=== PATIENT | male | born 1990 | race Caucasian/White ===

== ENCOUNTER 2018-09-20 21:45 | Emergency (ER) | payer SELFPAY ==
[2018-09-20 21:46] VITALS: BP 153/73; PULSE 82; RESP 16; TEMP 36.5; O2SAT 97; BMI 30.3
--- NOTE | 2018-09-20 22:05 | CT_ITS ---
STUDY: CT ABDOMEN AND PELVIS WITHOUT CONTRAST REASON FOR EXAM: Male, 27 years old. Right lower abdominal pain for 2 days. RADIATION DOSAGE (If Supplied By Facility): CTDIvol = ( 16.34 ) mGy, DLP = ( 951.50 ) mGycm TECHNIQUE: Transaxial images were obtained from the dome of the diaphragm to the symphysis pubis without oral contrast, and without intravenous contrast. Sagittal and coronal images were reconstructed. Individualized dose optimization techniques were used for this CT. COMPARISON: None. FINDINGS: The visualized lung bases are unremarkable. The visualized portions of the heart are within normal limits. Normal liver. The gallbladder is poorly distended but grossly unremarkable. There is no biliary ductal dilatation. Normal spleen. Normal pancreas. Normal bilateral adrenal glands. Normal right kidney. Normal left kidney. Normal bilateral ureters. Normal visualized stomach. Normal small intestine. Normal colon. There is non-visualization of the appendix. Normal abdominal aorta. Normal inferior vena cava. Normal retroperitoneum. Normal urinary bladder. Normal prostate. The seminal vesicles are prominent. There is no pelvic lymphadenopathy. No free air or free fluid is seen within the peritoneal cavity. There is an umbilical hernia of omental fat. The abdominal wall is grossly unremarkable. Normal osseous structures. CT/Abdomen/Pelvis without Cont IMPRESSION: Normal CT of the abdomen and pelvis. Electronically Signed: Sean Adorno DO at 22:36 EDT Tel [phone], Service support ,
[2018-09-20] MEDS: 0.9% Normal Saline 1,000 ML 125 ML IV (22:13)
[2018-09-20 22:21] LABS: Absolute Lymphocyte Count 2.45 X10^3/ul (0.83-4.51); Absolute Neutrophil Count 4.4 X10^3/uL (2.0-7.7); Basophil# 0.04 X10^3/uL; Basophil% 0.5 % (0-1); Eosinophil# 0.12 X10^3/uL; Eosinophils% 1.6 % (0-5); Hematocrit 44.1 % (40-54); Hemoglobin 15.8 g/dl (13.0-16.5); Lymphocyte # 2.45 X10^3/ul (4.0); Lymphocyte % 32.6 % (19-41); Mean Corp Hgb Conc 35.8 g/gl (32-36); Mean Corpuscular Hgb 30.9 pg (27.0-32.0); Mean Corpuscular Volume 86.1 fL (80-94); Mean Platelet Vol. 9.1 fl (6.2-12.0); Monocyte# 0.52 X10^3/uL; Monocyte% 6.9 % (0-10); Neutrophil # 4.36 X10^3/uL (2.7-7.7); Neutrophil % 58.1 % (47-70); POSITIVE COUNT NO; POSITIVE DIFFERENTIAL NO; POSITIVE MORPHOLOGY NO; Platelet Count 310 K/mm3 (150-450); RBC Distribution Width SD 40.2 fl (35.1-43.9); Red Blood Count 5.12 M/mm3 (4.6-6.2); White Blood Count 7.5 K/mm3 (4.4-11.0)
[2018-09-20 22:35] LABS: Anion Gap 7 (5-15); BUN 15 mg/dL (7-18); BUN/Creat Ratio 14.3 RATIO (10-20); Chloride 105 mmol/L (98-107); Creatinine, Serum 1.05 mg/dL (0.70-1.30); EST Glomerular Filtration Rate 89 mL/min (>60); Est Glom Filt Rate - Afr Amer 108 mL/min (>60); Estimated Creatinine Clearance 118.37 ml/min; Glucose 97 mg/dL (74-106); Potassium 3.7 mmol/L (3.5-5.1); Sodium Level 139 mmol/L (136-145)
--- NOTE | 2018-09-20 22:51 | ED.VISSUMM ---
- ER Visit Summary Date of Service: 09/20/18 Chief Complaint: Abdominal pain History of Present Illness: The patient is a 27 M presenting for evaluation secondary to abdominal pain. Patient reports that over the course the last 2 days he has had abdominal pain. He reports that it initially started periumbilically and then moved to his right lower quadrant. Patient states it is a continuous sharp aching pain that is somewhat better with putting pressure over the area but is worse with walking. Occasionally gets some radiation to his groin. He has not had any sort of fever nausea vomiting or diarrhea associated with this. He does endorse that he has a decreased appetite. Patient states that he has been dealing with urinary frequency over the course of multiple months and has had an extensive workup for this that has found to be negative. Patient states that yesterday he felt somewhat bloated but that is because he went on somewhat of a drinking binge for a peña's birthday. Physical Examination: Vital signs are within normal limits, patient is afebrile. General: Patient is well-nourished well-developed and in no acute distress. Head: Normocephalic, atraumatic Eyes: Pupils equal round and reactive bilaterally, extra occular motion intact bialterally ENT: Moist mucous membranes Neck: Supple, no lymphadenopathy, no JVD, no meningismus CVS: Heart regular rate and rhythm, no murmurs, rubs or gallops, radial pulses 2+ bilaterally Resp: Respirations nondistressed, lung sounds clear bilaterally Abdomen: Soft, tenderness in the right lower quadrant with a positive Rovsing sign, no guarding or rebound, nondistended, no palpable masses, normal bowel sounds Back: Nontender Extremities: Nontender, atraumatic, active full range of motion, no peripheral edema Skin: warm, no rashes, no petechia Neuro: Alert and oriented x 4, CN 2-12 intact, no lateralizing neurological defecits Psyc: Normal affect Test Results: CT abdomen and pelvis normal. CBC and chemistry are negative Emergency Department Course and Treatment: Patient presented for evaluation secondary to abdominal pain. This was concerning for the possibility of appendicitis. Workup as noted above is negative. Patient's abdominal exam is nonsurgical he has normal vital signs do not believe that he requires further workup or observation. Patient was given signs and symptoms which to return, he was discharged in stable condition Disposition: Discharge Impression: Right lower quadrant abdominal pain This note was generated with Flowboard dictation software. It may contain incorrect words, spelling, and punctuation that were not noted in review of the chart prior to signing ED Disposition - Plan for ED Patient: Disposition: Home or Assisted Living Chief Complaint: Flank Pain Diagnosis: Right lower quadrant abdominal pain Instructions: ED Abdominal Pain Unkn Cause Referrals: Johnny Hood [Primary Care Provider] - As Needed
[2018-09-20 23:18] VITALS: BP 133/79; PULSE 74; RESP 16; O2SAT 97
== END 2018-09-20 23:19 | disposition home or self-care (01) ==
PROVIDERS: Emergency Provider Emergency Medicine; Family Provider Family Medicine; PCP Family Medicine
DX: R10.31 Right lower quadrant pain (principal)
CPT/HCPCS: 74176; 80048; 85025; 96360; 99283; J7030; A4216

== ENCOUNTER 2018-10-05 09:23 | Day surgery (SDC) | payer SELFPAY ==
[2018-10-05] VITALS (8 sets, daily range): BP systolic 111–142; BP diastolic 76–106; PULSE 75–86; RESP 16–18; TEMP 36.2–36.8; O2SAT 95–100; BMI 30.6
--- NOTE | 2018-10-05 | IMM_PTH ---
PATIENT: GREGORY YING LOC: [facility] U#:[id number] AGE/SX: 27/M ROOM: RE10/05/[address]: Dr. Luciano Jones MD : 1990 BED: DIS: 10/05/2018 SPEC #: [id number] RECD: 10/07/18 07:58 STATUS: OLIVE REDeclan #: [id number] AZUCENA: 10/05/18 00:[address]: Luciano Jones DEPT: IMMUNOHISTOCHEMISTRY RECD BY: Messi Jones ENTERED: 10/07/18 07:58 SP TYPE: IMMUNO OTHR DR: Dr. Johnny Hood MD Tissues: Gastric mucous membrane Procedures: H Pylori (initial) PHYSICIAN & INSTITUTION [place] [id number] SPECIMEN INFORMATION: Tissue Source: B. Antral biopsy Clinical Info: Generalized abdominal pain, diarrhea Specimen Number: [id number] CPT code: 74853 METHODOLOGY: Deparaffinized sections of prefer/formalin-fixed tissue or PAP/DQ stained slides are incubated with monoclonal/polyclonal antibodies/oligonucleotide probes. Localization is made via biotin free immunoperoxidase method. Appropriate controls are performed and reacted as expected. Results on target cell population are indicated in the following table: RESULTS: ANTIBODY / CLONE RESULT H Pylori (polyclonal) negative These tests were developed and their performance characteristics determined by [facility]. They may not have been cleared or approved by the U.S. Food and Drug Administration. The FDA has determined that such clearance or approval is not necessary. INTERPRETATION: Antral biopsy: Negative for Helicobacter pylori organisms. SJ:brianne 10/06/18
--- NOTE | 2018-10-05 | COLBX_PTH ---
PATIENT: GREGORY YING LOC: [facility] U#:[id number] AGE/SX: 27/M ROOM: RE10/05/[address]: Dr. Luciano Jones MD : 1990 BED: DIS: 10/05/2018 SPEC #: [id number] RECD: 10/05/18 14:54 STATUS: OLIVE ESCOTODeclan #: [id number] AZUCENA: 10/05/18 00:[address]: Luciano Jones DEPT: SURGICAL PATHOLOGY RECD BY: Darryl Osman ENTERED: 10/05/18 14:55 SP TYPE: COLON BX OTHR DR: Dr. Johnny Hood MD Tissues: A - Duodenum, NOS B - Gastric mucous membrane C - Esophageal mucous membrane D - Esophageal mucous membrane E - COLON BIOPSY Procedures: Surgery Specimen Level IV HEADER OPERATION: Colonoscopy, EGD (MOD) PRE-OP DIAGNOSIS: Generalized abdominal pain, diarrhea TISSUE SUBMITTED: A. Duodenal biopsy, B. Antral biopsy, C. Distal esophagus biopsy, D. Proximal esophagus biopsy, E. Random colonic biopsy MICROSCOPIC DIAGNOSIS A. Duodenal biopsy: Fragments of duodenal mucosa with mild nonspecific chronic inflammation. B. Antral biopsy: Mild gastritis. C. Distal esophagus, biopsy: Fragments of squamous mucosa with mild chronic inflammation and superficial mild acute inflammation. D. Proximal esophagus, biopsy: Fragment of squamous epithelium with congestion. E. Colon, random biopsy: Fragments of colonic mucosa, no pathologic diagnosis. LUNA:kelechi 10/06/18 COMMENT B. The results of immunohistochemistry for Helicobacter pylori will be reported separately ([id number]). MICROSCOPIC DESCRIPTION Slides are reviewed. B. The specimen shows fragments of gastric mucosa with chronic inflammatory cell infiltrates in the lamina propria consisting of lymphocytes and plasma cells, consistent with mild chronic gastritis. GROSS DESCRIPTION A. Received is one container labeled with the patient name and designated duodenal biopsy. The specimen consists of multiple irregular fragments of light lau soft tissue that in aggregate measure 0.6 x 0.3 x 0.1 cm. The specimen is totally submitted in one cassette. B. Received is one container labeled with the patient name and designated antral biopsy. The specimen consists of one irregular fragment of light lau soft tissue that measures 0.3 x 0.2 x 0.1 cm. The specimen is totally submitted in one cassette. C. Received is one container labeled with the patient name and designated distal esophagus. The specimen consists of multiple irregular fragments of light lau soft tissue that in aggregate measure 0.6 x 0.3 x 0.1 cm. The specimen is totally submitted in one cassette. D. Received is one container labeled with the patient name and designated proximal esophagus biopsy. The specimen consists of one irregular fragment of light lau soft tissue that measures 0.2 x 0.2 x 0.1 cm. The specimen is totally submitted in one cassette. E. Received is one container labeled with the patient name and designated random colon biopsy. The specimen consists of multiple irregular fragments of light lau soft tissue that in aggregate measure 1.3 x 0.6 x 0.1 cm. The specimen is totally submitted in one cassette. / AM:sp 10/05/18 TC: 3 CPT: 01947 x5
--- NOTE | 2018-10-05 11:12 | OP.ENDO_ITS ---
Patient Name: Pablito Jean Baptiste Procedure Date: 10/05/2018 10:32 AM Date of : 1990 Age: 27 Procedure: Upper GI endoscopy Indications: Epigastric abdominal pain Providers: Luciano Jones MD Referring MD: Luciano Jones MD Medicines: Midazolam 4.5 mg IV, Meperidine 150 mg IV Complications: No immediate complications. Procedure: Pre-Anesthesia Assessment: - Prior to the procedure, a History and Physical was performed, and patient medications and allergies were reviewed. The patient's tolerance of previous anesthesia was also reviewed. The risks and benefits of the procedure and the sedation options and risks were discussed with the patient. All questions were answered, and informed consent was obtained. Prior Anticoagulants: The patient has taken no previous anticoagulant or antiplatelet agents. ASA Grade Assessment: II - A patient with mild systemic disease. After reviewing the risks and benefits, the patient was deemed in satisfactory condition to undergo the procedure. After obtaining informed consent, the endoscope was passed under direct vision. Throughout the procedure, the patient's blood pressure, pulse, and oxygen saturations were monitored continuously. The gastroscope was introduced through the mouth, and advanced to the second part of duodenum. The upper GI endoscopy was accomplished without difficulty. The patient tolerated the procedure well. Moderate Sedation: Moderate (conscious) sedation was personally administered by the endoscopist. The following parameters were monitored: oxygen saturation, heart rate, blood pressure, and response to care. Total physician intraservice time was 15 minutes. Scope In: 10:40:40 AM Scope Out: 10:47:14 AM Total Procedure Duration Time 0 hours 6 minutes 34 seconds Findings: The Z-line was irregular and was found 42 cm from the incisors. Biopsies were taken with a cold forceps for histology. LA Grade A (one or more mucosal breaks less than 5 mm, not extending between tops of 2 mucosal folds) esophagitis with no bleeding was found 42 cm from the incisors. A small hiatal hernia was present. Diffuse mild mucosal changes characterized by sloughing were found in the upper third of the esophagus. Biopsies were taken with a cold forceps for histology. The entire examined stomach was normal. Biopsies were taken with a cold forceps for histology. The examined duodenum was normal. Biopsies were taken with a cold forceps for histology. Impression: - Z-line irregular, 42 cm from the incisors. Biopsied. - LA Grade A reflux esophagitis. - Small hiatal hernia. - Mucosal changes in the esophagus. Biopsied. - Normal stomach. Biopsied. - Normal examined duodenum. Biopsied. Recommendation: - Resume previous diet. - Continue present medications. - Telephone my office for pathology results in 1 week. Recommend 20-30 lb weight loss to help with management of GERD - Repeat upper endoscopy for surveillance based on pathology results. Procedure Code(s): --- Professional --- 49275, Esophagogastroduodenoscopy, flexible, transoral; with biopsy, single or multiple 68563, 59, Moderate sedation services provided by the same physician or other qualified health wound care nurse performing the diagnostic or therapeutic service that the sedation supports, requiring the presence of an independent trained observer to assist in the monitoring of the patient's level of consciousness and physiological status; initial 15 minutes of intraservice time, patient age 5 years or older Diagnosis Code(s): --- Professional --- K22.8, Other specified diseases of esophagus K21.0, Gastro-esophageal reflux disease with esophagitis K44.9, Diaphragmatic hernia without obstruction or gangrene R10.13, Epigastric pain CPT copyright 2017 [employer]. All rights reserved. The codes documented in this report are preliminary and upon garbage truck dispatcher review may be revised to meet current compliance requirements. Luciano Jones MD 10/05/2018 11:12:33 AM This report has been signed electronically. Number of Addenda: 0 Note Initiated On: 10/05/2018 10:32 AM
--- NOTE | 2018-10-05 11:16 | OP.ENDO_ITS ---
Patient Name: Pablito Jean Baptiste Procedure Date: 10/05/2018 10:49 AM Date of : 1990 Age: 27 Procedure: Colonoscopy Indications: Clinically significant diarrhea of unexplained origin Providers: Luciano Jones MD Referring MD: Luciano Jones MD Medicines: See the other procedure note for documentation of the administered medications Patient Profile: Last Colonoscopy: none. The patient's first colonoscopy is today. Complications: No immediate complications. Procedure: Pre-Anesthesia Assessment: - Prior to the procedure, a History and Physical was performed, and patient medications and allergies were reviewed. The patient's tolerance of previous anesthesia was also reviewed. The risks and benefits of the procedure and the sedation options and risks were discussed with the patient. All questions were answered, and informed consent was obtained. Prior Anticoagulants: The patient has taken no previous anticoagulant or antiplatelet agents. ASA Grade Assessment: II - A patient with mild systemic disease. After reviewing the risks and benefits, the patient was deemed in satisfactory condition to undergo the procedure. After I obtained informed consent, the scope was passed under direct vision. Throughout the procedure, the patient's blood pressure, pulse, and oxygen saturations were monitored continuously. The colonoscope was introduced through the anus and advanced to the cecum, identified by appendiceal orifice and ileocecal valve. The colonoscopy was performed without difficulty. The patient tolerated the procedure well. The quality of the bowel preparation was good. The ileocecal valve was photographed. Moderate Sedation: Moderate (conscious) sedation was personally administered by the endoscopist. The following parameters were monitored: oxygen saturation, heart rate, blood pressure, and response to care. Total physician intraservice time was 15 minutes. Scope In: 10:50:48 AM Scope Withdrawal Time 0 hours 7 minutes 53 seconds Scope Out: 11:04:29 AM Total Procedure Duration Time 0 hours 13 minutes 41 seconds Findings: The digital rectal exam findings include enlarged prostate. Pertinent negatives include normal sphincter tone. The colon (entire examined portion) appeared normal. Biopsies for histology were taken with a cold forceps from the entire colon for evaluation of microscopic colitis. Impression: - Enlarged prostate found on digital rectal exam. - The entire examined colon is normal. Biopsied. Recommendation: - Discharge patient to home. - Resume previous diet. - Telephone my office for pathology results in 1 week. - Repeat colonoscopy age 49. - Continue present medications. Luciano Jones MD 10/05/2018 11:16:36 AM This report has been signed electronically. Number of Addenda: 1 Note Initiated On: 10/05/2018 10:49 AM Addendum Number: 1 Addendum Date: 10/05/2018 12:02:13 PM No changes Luciano Jones MD 10/05/2018 12:04:27 PM
== END 2018-10-05 11:57 | disposition home or self-care (01) ==
LOC: EN 09:33 → AC 09:34
PROVIDERS: Family Provider Family Medicine; PCP Family Medicine; Referring Provider Surgery; Visit Provider Surgery
PROC: 0DJD8ZZ Inspection of Lower Intestinal Tract, Via Natural or Artificial Opening Endoscopic (ICD-10-PCS; CPT 45378; principal; 2018-10-05 10:25)
DX: K29.70 Gastritis, unspecified, without bleeding (principal); K21.0 Gastro-esophageal reflux disease with esophagitis; K44.9 Diaphragmatic hernia without obstruction or gangrene; N40.0 Benign prostatic hyperplasia without lower urinary tract symptoms; F41.9 Anxiety disorder, unspecified; F32.9 Major depressive disorder, single episode, unspecified; Z79.899 Other long term (current) drug therapy
CPT/HCPCS: 43239; 45380; 88305; 88342; 99152; 99153; J7120

== ENCOUNTER → 2024-04-12 | Outpatient (CLI) | payer OTHER, SELFPAY ==
[2024-04-12 12:24] LABS: Absolute Lymphocyte Count 1.37 X10^3/uL (0.83-4.51); Absolute Neutrophil Count 2.4 X10^3/uL (2.0-7.7); Basophil# 0.03 X10^3/uL; Basophil% 0.7 % (0-1); Eosinophil# 0.08 X10^3/uL; Eosinophils% 1.8 % (0-5); Hematocrit 49.4 % (40-54); Hemoglobin 16.7 g/dL (13.0-16.5); Lymphocyte # 1.37 X10^3/ul (0.83-4.51); Lymphocyte % 30.9 % (19-41); Mean Corp Hgb Conc 33.8 g/dL (32-36); Mean Corpuscular Hgb 29.3 pg (27.0-32.0); Mean Corpuscular Volume 86.7 fL (80-94); Mean Platelet Vol. 9.7 fl (6.2-12.0); Monocyte# 0.51 X10^3/uL; Monocyte% 11.5 % (0-10); NRBC Flagged by Analyzer 0 % (0-5); Neutrophil # 2.43 X10^3/uL (2.7-7.7); Neutrophil % 54.9 % (47-70); Platelet Count 275 K/mm3 (150-450); RBC Distribution Width SD 40.7 fl (35.1-43.9); White Blood Count 4.4 K/mm3 (4.4-11.0)
[2024-04-12 13:00] LABS: ALB/GLOB Ratio 1.1 RATIO (0.9-2.4); AST(SGOT) 31 U/L (15-37); Alanine Aminotransfer ALT/SGPT 67 U/L (16-61); Albumin, Serum 4.1 g/dL (3.2-5.0); Alkaline Phosphatase 80 U/L (45-117); Anion Gap 6 (5-15); BUN 16 mg/dL (7-18); BUN/Creat Ratio 17.2 RATIO (10-20); Calcium,Total 9.4 mg/dL (8.5-10.1); Chloride 105 mmol/L (98-107); Cholesterol 156 mg/dL (200); Creatinine, Serum 0.93 mg/dL (0.70-1.30); EST Glomerular Filtration Rate 99 mL/min (>60); Est Glom Filt Rate - Afr Amer 119 mL/min (>60); Globulin 3.8 g/dL (2.2-4.2); Glucose 88 mg/dL (74-106); High Density Lipoprotein 33 mg/dL; Potassium 4.3 mmol/L (3.5-5.1); Protein, Total 7.9 g/dL (6.4-8.2); Sodium Level 138 mmol/L (136-145); Thyroid Stim Hormone (TSH) 1.66 uIU/mL (0.358-3.74); Triglycerides 183 mg/dL; Very Low Density Lipoprotein 37 mg/dL (5-40)
[2024-04-12 13:50] LABS: Vitamin D,25 Hydroxy 30.6 ng/mL
[2024-04-13 15:08] LABS: Endomysial Antibody IgA Negative (Negative); Immunoglobulin A 223 mg/dL (90-386); t-Transglutaminase IgA <2 U/mL (0-3)
== END | disposition home or self-care (01) ==
LOC: BIMLAB 08:39
PROVIDERS: PCP Internal Medicine; Visit Provider Internal Medicine
DX: R10.9 Unspecified abdominal pain (principal); G89.29 Other chronic pain; Z13.6 Encounter for screening for cardiovascular disorders; F32.A Depression, unspecified; F41.9 Anxiety disorder, unspecified
CPT/HCPCS: 36415; 80053; 80061; 82306; 82784; 83516; 84443; 85025; 86255

== ENCOUNTER → 2025-02-25 | Outpatient (CLI) | payer OTHER, SELFPAY ==
[2025-02-25 09:18] LABS: Absolute Lymphocyte Count 1.82 X10^3/uL (0.83-4.51); Absolute Neutrophil Count 3.6 X10^3/uL (2.0-7.7); Basophil# 0.04 X10^3/uL; Basophil% 0.7 % (0-1); Eosinophils% 1.7 % (0-5); Hematocrit 47.8 % (40-54); Hemoglobin 16.8 g/dL (13.0-16.5); Lymphocyte # 1.82 X10^3/ul (0.83-4.51); Lymphocyte % 30.5 % (19-41); Mean Corp Hgb Conc 35.1 g/dL (32-36); Mean Corpuscular Hgb 29.9 pg (27.0-32.0); Mean Corpuscular Volume 85.2 fL (80-94); Mean Platelet Vol. 9.4 fl (6.2-12.0); Monocyte# 0.42 X10^3/uL; NRBC Flagged by Analyzer 0 % (0-5); Neutrophil # 3.57 X10^3/uL (2.7-7.7); Neutrophil % 59.8 % (47-70); Platelet Count 270 K/mm3 (150-450); RBC Distribution Width CV 12.8 % (11.6-14.6); RBC Distribution Width SD 39.3 fl (35.1-43.9); Red Blood Count 5.61 M/mm3 (4.6-6.2)
[2025-02-25 10:04] LABS: ALB/GLOB Ratio 1.9 RATIO (0.9-2.4); AST(SGOT) 28 U/L (<=37); Alanine Aminotransfer ALT/SGPT 47 U/L (<=46); Albumin, Serum 4.5 g/dL (3.5-5.0); Alkaline Phosphatase 75 U/L (40-129); Anion Gap 9 (5-15); BUN 12 mg/dL (4-19); BUN/Creat Ratio 12.4 RATIO (10-20); Calcium,Total 9.4 mg/dL (7.6-11.0); Carbon Dioxide 25.8 mmol/L (21.0-32.0); Chloride 103 mmol/L (98-108); Creatinine, Serum 0.95 mg/dL (0.70-1.20); EST Glomerular Filtration Rate 107 (>60); Globulin 2.4 g/dL (2.2-4.2); Glucose 99 mg/dL (70-99); Potassium 4.7 mmol/L (3.3-5.1); Protein, Total 6.9 g/dL (5.9-8.4); Sodium Level 138 mmol/L (133-145); Total Bilirubin 1.02 mg/dL (0.00-1.30); Vitamin D,25 Hydroxy 19.3 ng/mL (30-100)
[2025-03-02 11:08] LABS: Testosterone Free 16.6 pg/mL (8.7-25.1)
== END | disposition home or self-care (01) ==
LOC: LAB 08:23
PROVIDERS: PCP Internal Medicine; Referring Provider Internal Medicine; Visit Provider Internal Medicine
DX: N52.9 Male erectile dysfunction, unspecified (principal); F32.A Depression, unspecified; F41.9 Anxiety disorder, unspecified; R10.9 Unspecified abdominal pain; G89.29 Other chronic pain
CPT/HCPCS: 36415; 80053; 82306; 84402; 85025

== ENCOUNTER 2025-06-16 08:02 | Day surgery (SDC) | payer OTHER, SELFPAY ==
[2025-06-16] MEDS: Lidocaine Jelly 2% 20 ML Syringe (URO-JET) 1 APPLIC (08:15)
[2025-06-16 08:54] VITALS: BP 119/75; PULSE 77; TEMP 36.1; O2SAT 99
== END 2025-06-16 08:42 | disposition home or self-care (01) ==
PROVIDERS: PCP Internal Medicine; Referring Provider Internal Medicine; Visit Provider Surgery
PROC: F00ZJWZ Instrumental Swallowing and Oral Function Assessment using Swallowing Equipment (ICD-10-PCS; CPT 43235; principal; 2025-06-16 07:55)
DX: K21.9 Gastro-esophageal reflux disease without esophagitis (principal)
CPT/HCPCS: 91010

== ENCOUNTER 2025-07-18 07:12 | Day surgery (SDC) | payer OTHER, SELFPAY ==
[2025-07-18] VITALS (8 sets, daily range): BP systolic 103–113; BP diastolic 65–79; PULSE 72–82; RESP 14–16; TEMP 36.1–36.4; O2SAT 97–100; BMI 28.2
--- OUTSIDE RECORDS SUMMARY | 2025-07-18 07:20 | XMS RPT_ITS | CCD ---
Author Organization [facility] CliniSypr Care Team Providers Care [employer] And Service Director Name Role Phone TAJKARIMIA, TOMASZ Admitting Unavailable TAJKARIMIA, TOMASZ Primary Care Unavailable TAJKARIMIA, TOMASZ Attending Unavailable OMAR HOOD Consulting Unavailable PROVIDER, UNKNOWN Consulting Unavailable PROVIDER, UNKNOWN Consulting Unavailable PROVIDER, UNKNOWN Consulting Unavailable OMAR HOOD Consulting Unavailable WILD, DR ERLINDA Santana Admitting Unavaila ble WILD, DR ERLINDA Santana Primary Care Unavaila ble WILD, DR ERLINDA Santana Attending Unavaila ble PROVIDER, UNKNOWN Consulting Unavailable PROVIDER, UNKNOWN Consulting Unavailable PROVIDER, UNKNOWN Consulting Unavailable Unavailable Primary Care Provider Unavailbreanna e Unavailable Primary Care Provider UnavailNAZANIN London Referring Unavailable NAZANIN AMIN Attending Unavailable OLDER, CLARISSA Referring Unavailable NAZANIN AMIN Attending Unavailable OLDER, CLARISSA Referring Unavailable OLDER, CLARISSA Attending Unavailable Dr. Mary Knowles MD Primary Care Provider [phone] Dr. Mary Knowles MD Attending Provider Dr. Mary Knowles MD Referring Provider Dr. Mary Knowles MD Primary Care Provider [phone] Dr. Mary Knowles MD Attending Provider Dr. Mary Knowles MD Referring Provider Catarina ASHTON, Dr. Palomo Attending Provider [phone] Mary Knowles Primary Care Unavailable Mary Knowles Referring Unavailable Mary Knowles Attending Unavailable Mary Knowles Referring Unavailable Mary Knowles Primary Care Unavailable Dewey Elmore Attending Unavailable Mary Knowles Primary Care Unavailable Dewey Elmore Attending Unavailable Mary Knowles Referring Unavailable [place], Mary Attending Unavailable Benson, Mary Primary Care Unavailable [place], Mary Primary Care Unavailable [place], Mary Referring Unavailable Benson, Mary Attending Unavailable [place], Mary Referring Unavailable Benson, Mary Primary Care Unavailable Dewey Elmore Attending Unavailable Benson, Mary Referring Unavailable [place], Mary Attending Unavailable Benson, Mary Primary Care Unavailable [place], Mary Referring Unavailable [place], Mary Attending Unavailable [place], Mary Primary Care Unavailable Medications Current Medications Medication Drug Class(es) Dates Sig (Normalized) Sig (Original) omeprazole 40 mg delayed release oral capsule (3 sources) Proton Pump Inhibitor Start: 04-26-2025 take 1 capsule by mouth once daily Omeprazole 40 mg capsule,delayed release(DR/EC) Active 40 mg PO daily 30 April 26, 2025 12:00am sertraline 50 mg oral tablet (6 sources) Serotonin Reuptake Inhibitor Start: 04-26-2025 take 1 tablet by mouth once daily Sertraline 50 mg tablet Active 50 mg PO daily 30 April 26, 2025 9:08am Start: 03-15-2025 End: 04-26-2025 take 1 tablet by mouth once daily Sertraline (Zoloft) 25 mg tablet Discontinued 25 mg PO daily 22 12March 15, 2025 12:00am April 26, 2025 9:08am Varenicline Tartrate (Chantix Starting Month Box) 0.5 mg (11)- 1 mg (42) tablets,dose pack (4 sources) Start: 01-06-2024 take 1 tablet by mouth once Varenicline Tartrate (Chantix Starting Month Box) 0.5 mg (11)- 1 mg (42) tablets,dose pack Active 0 PO per package directions 53 January 06, 2024 1:00am PO PER PKG DIR Start: 01-06-2024 take 1 tablet by mouth once Va renicline Tartrate (Chantix Starting Month Box) 0.5 mg (11)- 1 mg (42) tablets,dose pack Active 0 PO per package directions January 06, 2024 1:00am PO PER PKG DIR Completed/Discontinued Medications Medication Drug Class(es) Dates Sig (Normalized) Sig (Original) FLUoxetine 20 mg oral capsule (4 sources) Serotonin Reuptake Inhibitor Start: 09-28-2018 End: 01-06-2024 take 1 capsule by mouth once daily Fluoxetine 20 mg capsule Discontinued 20 mg PO DAILY September 28, 2018 1:00am January 06, 2024 10:53am naproxen sodium 220 mg oral tablet (2 sources) Nonsteroidal Anti-inflammatory Drug Start: 07-03-2022 naproxen sodium (ALEVE) 220 mg tablet Takes as needed 0 07/03/2022 Active Comment on above: Takes as needed pantoprazole 40 mg delayed release oral tablet (16 sources) Proton Pump Inhibitor Start: 01-06-2024 End: 03-15-2025 take 1 tablet by mouth once daily Pantoprazole (Protonix) 40 mg tablet,delayed release (DR/EC) Discontinued 40 mg PO DAILY 30 November 09, 2024 4:42pm March 15, 2025 9:37am traZODone hydrochloride 50 mg oral tablet (12 sources) Serotonin Reuptake Inhibitor Start: 04-12-2024 End: 03-15-2025 take 1 tablet by mouth at bedtime Trazodone 50 mg tablet Discontinued 50 mg PO AT BEDTIME 30 September 12, 2024 3:16pm March 15, 2025 9:37am Problems Problem Classification Problem Date Documented Da te Episodic/Chronic Abdominal pain (15 sources) Right lower quadrant pain; Translations: [Right lower quadrant pain] Onset: 5 09-21-2018 Episodic Administrative/social admission (3 sources) Patient encounter status; Translations: [Dietary counseling and surveillance] Onset: 2 Episodic Anxiety disorders (12 sources) Anxiety; Translations: [Anxiety disorder, unspecified] Onset: 5 09-28-2018 Chronic Disorders of teeth and jaw (4 sources) Loss of teeth due to extraction; Translations: [Partial loss of teeth, unspecified cause, unspecified class] 01-04-2024 Episodic Esophageal disorders (11 sources) Gastroesophageal reflux disease; Translations: [Gastro-esophageal reflux disease without esophagitis] Onset: 5 09-28-2018 Chronic Esophageal disorders (3 sources) Esophageal disorders Miscellaneous mental health disorders (1 source) Sleep walking disorder; 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]] 11-29-2024 Chronic Mood disorders (11 sources) Depressive disorder; Translations: [Depression] 09-28-2018 Chronic Mood disorders (1 source) Mood disorders; Translations: [Depression, unspecified] Onset: 5 Nutritional deficiencies (8 sources) Vitamin D deficiency; Translations: [Vitamin D deficiency, unspecified] Onset: 5 11-29-2024 Chronic Other connective tissue disease (3 sources) Suspected respiratory disease; Translations: [Other symptoms and signs involving the nervous system] 04-26-2025 Episodic Other gastrointestinal disorders (4 sources) Diarrhea; Translations: [Diarrhea, unspecified] 01-06-2024 Episodic Comment on above: resolved Other male genital disorders (8 sources) Male erectile dysfunction, unspecified; Translations: [Erectile dysfunction] Onset: 5 11-29-2024 Chronic Other nervous system disorders (1 source) Other chronic pain; Translations: [Other chronic pain] Onset: 5 Chronic Other nutritional; endocrine; and metabolic disorders (3 sources) Body mass index 25-29 - overweight; Translations: [Overweight] Onset: 2 Episodic Other nutritional; endocrine; and metabolic disorders (1 source) Overweight; Translations: [Overweight] Episodic Other nutritional; endocrine; and metabolic disorders (1 source) Overweight; Translations: [Overweight (BMI 25.0-29.9)] Onset: 2 Episodic Other upper respiratory disease (3 sources) Seasonal allergy; Translations: [Other seasonal allergic rhinitis] 03-15-2025 Chronic Residual codes; unclassified (1 source) Hypersomnia, unspecified; Translations: [Hypersomnia, unspecified] Onset: 5 Chronic Residual codes; unclassified (3 sources) Family history of cardiovascular disease in first degree male relative less than 55 years of age; Translations: [Family history of ischemic heart disease and other diseases of the circulatory system] Onset: 2 Episodic Residual codes; unclassified (1 source) Family history of ischemic heart disease and other diseases of the circulatory system; Translations: [Family history of heart disease in male family member before age 55] Onset: 2 Episodic Residual codes; unclassified (1 source) Influenza vaccination declined; Translations: [Immunization not carried out because of patient refusal] 11-29-2024 Episodic Residual codes; unclassified (7 sources) Electronic cigarette user; Translations: [Other specified health status] 11-29-2024 Episodic Residual codes; unclassified (4 sources) Difficulty sleeping ; Translations: [Sleep disorder, unspecified] 03-15-2025 Episodic Spondylosis; intervertebral disc disorders; other back problems (6 sources) Chronic low back pain; Translations: [Chronic right-sided low back pain without sciatica] 03-15-2025 Episodic Results Test Name Value Interpretation Reference Range Facility Surgery Visit Reporton 05-03 Surgery Visit Report [facility] [address] [place] [address] OFFICE VISIT Date of Service: 05/03/25 MR#: [id number] Acct: [id number] Name: GREGORY JEAN BAPTISTE Rep #: [id number] : 1990 Provider: Dr. Dewey li MD Age/Sex: 34/M Location: [facility] Status: Signed Intake Vital Signs 04/26/25 08:37 05/03/25 08:25 Height 6 ft 1 in 6 ft 1 in Weight: 230 lb 231 lb BMI 30.3 30.4 BP 122/68 H 118/80 Blood Pressure Location Lt brachial Rt brachial Position Sitting Sitting Respiration 18 17 Pulse 102 H 76 Pulse Source Monitor Monitor Temp 97.8 F Temp Source Temporal Pulse Oximetry (%) 97 97 Oxygen Delivery Method room air room air Intake Visit Reasons: GERD/SMALL HIATAL HERNIA Chief Complaint: gerd/hiatal hernia Is patient in pain?: No Allergies No Known Allergies Allergy (Verified 05/03/25 08:25) Medications ???Medication ???Instructions ???Recorded ???Confirmed ???Type varenicline tartrate 0.5 mg (11)-1 See Rx Instructions PO PER PKG D IR 01/06/24 05/03/25 Rx mg (42) tablets in a dose pack #53 tabs (Chantix Starting Month Box) omeprazole 40 mg capsule,delayed 40 mg PO QDAY #30 caps 04/26/25 Rx release sertraline 50 mg tablet 50 mg PO QDAY #30 tabs 04/26/25 Rx PFSH Medical History Hiatal hernia Acid reflux Diarrhea Abdominal pain Anxiety Depression Surgical History H/O esophagogastroduodenoscopy H/O colonoscopy Hx of wisdom tooth extraction Family History Father Diabetes Heart disease s/p stents Hypertension Cancer multiple myeloma and leukemia Hyperlipidemia Uncle Heart disease Heart failure Brother Asperger syndrome Mother Dementia Social History (Updated 04/26/25 @ 08:[address] 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[employer] pets and animals: Yes pets and animals: cat(s) and dog(s) Smoking Status: Current every day smoker tobacco type: e-cigarettes Tobacco: How many years used: 8 Electronic Cigarette Use: with nicotine how long ago did patient quit smokin-1.5 cartridges per day second hand exposure: No quit status: considering quitting alcohol intake: current alcohol intake frequency: holidays/special occasions only substance use type: does not use caffeine: Yes (13) Type: carbonated beverages and coffee what type of physical activity do you participate in: none frequency: does not exercise seatbelt use: always do you feel safe at home: Yes HPI HPI HPI: Patient is a 34-year-old male with the history of a small hiatal hernia. The patient reports that his GERD has gotten much worse and he is having some hoarseness. Patient reports severe reflux especially if eating anything acidic. ROS General General: Yes weight change and fatigue; No appetite, colon cancer, breast cancer or weakness HEENT HEENT: Yes difficulty swallowing; No eye injury, eye surgery, swollen glands or hoarseness Endo Endocrine: No thyroid disease, diabetes mellitus, thyroid cancer, Hair loss, heat intolerance or cold intolerance Skin Skin: No rash or changing moles Musc Musculoskeletal: Yes back problems; No arthritis, rheumatoid arthritis, gout or joint pain Cardio Cardiovascular: No murmur, pacemaker, heart disease, atrial fibrillation, high blood pressure, heart attack, heart stent, palpitations, shortness of breath with exertion or chest pain Psych Psychiatric: Yes anxiety; No depression or hearing voices Resp Respiratory: No shortness of breath, No sleep apnea, No cough, No COPD, No asthma, No emphysema and No wheezing Gastro Gastrointestinal: Yes abdominal pain, No nausea or vomiting, Yes diarrhea, No constipation, No blood in stool, Yes acid reflux, No hemorrhoids, No ulcers, No gallbladder problem and No black,tarry stools Gerald Hematologic: No blood thinners, No blood disorders, No bleeding, No anemia and No blood clots Neuro Neurologic: No system reviewed and no additional complaints, except as documented, No as per HPI, No abnormal gait, No abnormal hearing, No abnormal movements, No abnormal speech, No behavioral changes, No burning sensations, No confusion, No convulsions, No disequilibrium, No dizziness, No localized weakness, No frequent falls, No headache(s), No lack of coordination, No loss of vision, No memory loss, Yes numbness, No other visual disturbances, No radicular pain, No restless legs, No sensory deficit, No syncope, No tingling, No tremor(s), No weakness and (more content not included)... Normal [facility] Internal Medicine Office Vis iton 04-25-2025 Internal Medicine Office Visit [facility] [address] [place] [address] [place] [address] OFFICE VISIT Date of Service: 04/26/25 MR#: [id number] Acct: [id number] Name: GREGORY JEAN BAPTISTE Rep #: [id number] : 1990 Provider: Dr. Mary wing MD Age/Sex: 34/M Location: [facility] Status: Signed Intake Vital Signs 03/15/25 09:06 04/26/25 08:37 Height 6 ft 1 in 6 ft 1 in Weight: 230 lb BMI 30.3 BP 122/68 H Blood Pressure Location Lt brachial Position Sitting Respiration 18 Pulse 102 H Pulse Source Monitor Temp 97.8 F Temp Source Temporal Pulse Oximetry (%) 97 Oxygen Delivery Method room air Intake Visit Reasons: 6 wk FU Chief Complaint: 6 wk FU Allergies No Known Allergies Allergy (Verified 04/26/25 08:39) Medications ???Medication ???Instructions ???Recorded ???Confirmed ???Type varenicline tartrate 0.5 mg (11)-1 See Rx Instructions PO PER PKG D IR 01/06/24 03/15/25 Rx mg (42) tablets in a dose pack #53 tabs ([facility]) omeprazole 40 mg capsule,delayed 40 mg PO QDAY #30 caps 04/26/25 Rx release sertraline 50 mg tablet 50 mg PO QDAY #30 tabs 04/26/25 Rx Nurse's Note: Gregory states that people around him have noticed he is in better moods states he feels the zoloft is helping, although his feels it needs increased. pt reports he has increased reflux affecting his voice some days. pt states that he is taking what he thinks is omeprazole 40mg every other day, states he will text his and ask her . pt also has c/o of what he feels is worsening seasonal allergies, has tried claritin. PFSH Medical History Hiatal hernia Acid reflux Diarrhea Abdominal pain Anxiety Depression Surgical History H/O esophagogastroduodenoscopy H/O colonoscopy Hx of wisdom tooth extraction Family History (Updated 04/26/25 @ 08:[address] Mary Knowles MD) Father Diabetes Heart disease s/p stents Hypertension Cancer multiple myeloma and leukemia Hyperlipidemia Uncle Heart disease Heart failure Brother Asperger syndrome Mother Dementia Social History (Updated 04/26/25 @ 08:[address] 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 [employer] pets and animals: Yes pets and animals: cat(s) and dog(s) Smoking Status: Current every day smoker tobacco type: e-cigarettes Tobacco: How many years used: 8 Electronic Cigarette Use: with nicotine how long ago did patient quit smokin-1.5 cartridges per day second hand exposure: No quit status: considering quitting alcohol intake: current alcohol intake frequency: holidays/special occasions only substance use type: does not use caffeine: Yes (13) Type: carbonated beverages and coffee what type of physical activity do you participate in: none frequency: does not exercise seatbelt use: always do you feel safe at home: Yes Questionnaire PQH-9 BMS Over the last 2 weeks, how often have you been bothered by any of the following problems? 1. Little interest or pleasure in doing things: nearly every day 2. Feeling down, depressed, or hopeless: more than half the days 3. Trouble falling or staying asleep, or sleeping too much: several days 4. Feeling tired or having little energy: nearly every day 5. Poor appetite or overeating: nearly every day 6. Feeling bad about yourself - or that you are a failure or have let yourself and your family down: nearly every day 7. Trouble concentrating on things, such as reading the newspaper or watching television: nearly every day 8. Moving or speaking so slowly that other people could have noticed? - Or the opposite - being so fidgety or restless that you have been moving around a lot more than usual: nearly every day 9. Thoughts that you would be better off or of hurting yourself in some way: not at all Total score: 21 If you checked off any problems, how difficult have these problems made it for you to do your work, take care of things at home, or get along with other people?: somewhat difficult Source: Developed by Drs. Luciano Blue, Jo Ann Clements, James Madrid and colleagues, with an educational mariella from [employer]. ASHLEY-7 BMS ASHLEY-7 Feeling nervous, anxious, or on edge: 1 = Several days Not being able to stop or control worryin = More than half the days Worrying too much about different things: 3 = Nearly every day Trouble relaxin = Nearly every day Being so restless that it is hard to sit still: 3 = Nearly every day Becoming easily annoyed or irritable: 0 = Not at all Feeling afraid as if somethi (more content not included)... Normal [facility] Internal Medicine Office Vis mike 03-14-2025 Internal Medicine Office Visit [facility] [address] [place] [address] [place], [place] [address] OFFICE VISIT Date of Service: 03/15/25 MR#: [id number] Acct: [id number] Name: GREGORY JEAN BAPTISTE Rep #: [id number] : 1990 Provider: Dr. 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 Required: No Accompanied by: Self Is patient in pain?: No Allergies No Known Allergies Allergy (Verified 03/15/25 09:06) Medications ???Medication ???Instructions ???Recorded ???Confirmed ???Type varenicline tartrate 0.5 mg (11)-1 See Rx Instructions PO PER PKG D IR 01/06/24 03/15/25 Rx mg (42) tablets in a dose pack #53 tabs (Chantix Starting Month Box) sertraline 25 mg tablet (Zoloft) 25 mg PO QDAY #30 tabs 03/15/25 Rx Have you fallen in the past year?: No PFSH Medical History Hiatal hernia Acid reflux Diarrhea Abdominal pain Anxiety Depression Surgical History H/O esophagogastroduodenoscopy H/O colonoscopy Hx of wisdom tooth extraction Family History Father Diabetes Heart disease s/p stents Hypertension Cancer multiple myeloma and leukemia Hyperlipidemia Uncle Heart disease Heart failure Brother Asperger syndrome Social History adopted: No household members: spouse and children number of children: 2 current occupational status: employed 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, 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 [employer] pets and animals: Yes pets and animals: cat(s) and dog(s) Smoking Status: Current every day smoker tobacco type: e-cigarettes Tobacco: How many years used: 8 Electronic Cigarette Use: with nicotine how long ago did patient quit smokin-1.5 cartridges per day second hand exposure: No quit status: considering quitting alcohol intake: current alcohol intake frequency: holidays/special occasions only substance use type: does not use caffeine: Yes (13) Type: carbonated beverages and coffee what type of physical activity do you participate in: none frequency: does not exercise seatbelt use: always do you feel safe at home: Yes HPI HPI Chief Complaint: fu Details: GREGORY JEAN BAPTISTE, is a 34 M who presents to the office today for a follow up. He is up to date on his routine blood work. He is not due for any screening. He is not due for any immunizations. He does smoke e-cigarettes and was ordered chantix at a previous office visit. He reports he never tried it. He states he is still considering it. He doesn't need any refills today. He reports he is not eating very healthy. He will get 10,000-15,000 steps per day. He reports his abdominal pain has been doing fine. He states with cutting out the pop, it has been doing much better. He continues to have problems with erectile dysfunction. He continues to struggle with his mental health. He previously declined medications. He is still doing the coaching classes at work, and thinks it helps a little. He states his is on zoloft and she told him to ask about it. He is no longer taking the trazodone for his sleep. He reports he has been sleeping about 4 hours at night. He states he is 'getting by.' He states he still has stressors with work. The patient reports he has been having some back pain. He reports he has had problems for several years. He had an MRI years ago. He denies any significant injuries. He reports he has been seeing a chiropractor, but hasn't found it to be helpful. He recognizes that he hasn't been very active which is likely contributing. He does take PRN naproxen which helps some. He reports he has never done physical therapy, but states he would consider it. He reports it is in his lower right side without radiation. He denies any significant pain stating it is just there. He states he will get intermittent flare ups for it. He states he has been having some sinus congestion. He takes an OTC claritin daily and is wondering what other options he may have. ROS Const Constitutional: Positive for sleep problems; No body ache, excessive sweating, fatigue, fever(s), frequent falls, headache(s), snoring, weakness, weight change or change in appetite Eyes Eyes: No blurry vision, change in vision, eye pain or Light sensitivity ENT ENT: Positi (more content not included)... Normal [facility] Testosterone Freeon 03-02-20 25 TESTOSTER FREE 16.6 pg/mL Normal 8.7-25.1 [facility] Comment on above: Result Comment: Perf ormed at: [facility] [id number] [place] Thinner: Elle Allen MD, Phone: [phone] Performed By: #### L 500.4050, L100.0100, L3400.4800, L506.1001 #### [facility] [address] [place], [place], [id number] Absolute lymphocyte countOrd ered By: Mary Knowles on 02-25-2025 Lymphocytes Auto (Unsp spec) [#/Vol] 1.82 10*3/uL 0.83-4.51 [facility] Absolute neutrophil countOrd ered By: Mary Knowles on 02-25-2025 Neutrophils (Bld) [#/Vol] 3.6 10*3/uL 2.0-7.7 [facility] Anion gap in Serum or Plasma Ordered By: Mary Knowles on 02-25-2025 Anion gap [Moles/Vol] 9 mmol/L 5-15 [facility] Automated lymphocyte count a s percentage of total leukocytesOrdered By: Mary Knowles on 02-25-2025 Lymphocytes/100 WBC Auto (Unsp spec) 30.5 % - [facility] BUN/creatinine ratioOrdered By: Mary Knowles on 02-25-2025 Urea nitrogen/Creatinine [Mass ratio] 12.4 mg/mg 10- [facility] Basophil percentageOrdered B y: Mary Knowles on 02-25-2025 Basophils/100 WBC (Bld) 0.7 % 0-1 [facility] Bilirubin, totalOrdered By: Mary Knowles on 02-25-2025 Bilirubin [Mass/Vol] 1.02 mg/dL 0.00-1.30 [facility] CBC W/Diff, Automatedon Absolute Lymph 1.82 X10 3/uL Normal 0.83-4.51 [facility] Comment on above: Performed By: #### L 500.4050, L100.0100, L3400.4800, L506.1001 #### [facility] [address] [place], [address] Absolute Neut 3.6 X10 3/uL Normal 2.0-7.7 [facility] Comment on above: Performed By: #### L 500.4050, L100.0100, L3400.4800, L506.1001 #### [facility] Laboratory [address] [place], [address] Basophils/100 WBC (Bld) 0.7 % Normal 0-1 [facility] Comment on above: Performed By: #### L 500.4050, L100.0100, L3400.4800, L506.1001 #### [facility] [address] [place], [address] Eosinophils/100 WBC (Bld) 1.7 % Normal 0-5 [facility] Comment on above: Performed By: #### L 500.4050, L100.0100, L3400.4800, L506.1001 #### [facility] [address] [place], [address] Erythrocyte distribution width (RBC) [Ratio] 12.8 % Normal 11.6-14.6 [facility] Comment on above: Performed By: #### L 500.4050, L100.0100, L3400.4800, L506.1001 #### [facility] [address] [place], [address] Hematocrit (Bld) [Volume fraction] 47.8 % Normal 40-54 [facility] Comment on above: Performed By: #### L 500.4050, L100.0100, L3400.4800, L506.1001 #### [facility] [address] [place], [address] Hemoglobin (Bld) [Mass/Vol] 16.8 g/dL High 13.0-16.5 [facility] Comment on above: Performed By: #### L 500.4050, L100.0100, L3400.4800, L506.1001 #### [facility] [address] [place], [address] IG% 0.300 Normal 0.0-0.9 [facility] Comment on above: Result Comment: IG% - Immature Granulocytes (promyelocytes, myelocytes and metamyelocytes) > 1% indicates that a LEFT SHIFT is Present. Performed By: #### L 500.4050, L100.0100, L3400.4800, L506.1001 #### [facility] [address] [place], [address] Lymphocytes/100 WBC (Bld) 30.5 % Normal 19-41 [facility] Comment on above: Performed By: #### L 500.4050, L100.0100, L3400.4800, L506.1001 #### [facility] [address] [place], [address] MCH (RBC) [Entitic mass] 29.9 pg Normal 27.0-32.0 [facility] Comment on above: Performed By: #### L 500.4050, L100.0100, L3400.4800, L506.1001 #### [facility] [address] [place], [address] MCHC (RBC) [Mass/Vol] 35.1 g/dL Normal 32-36 [facility] Comment on above: Performed By: #### L 500.4050, L100.0100, L3400.4800, L506.1001 #### [facility] [address] [place], [address] MCV (RBC) [Entitic vol] 85.2 fL Normal 80-94 [facility] Comment on above: Performed By: #### L 500.4050, L100.0100, L3400.4800, L506.1001 #### [facility] [address] [place], [address] Monocytes/100 WBC (Bld) 7.0 % Normal 0-10 [facility] Comment on above: Performed By: #### L 500.4050, L100.0100, L3400.4800, L506.1001 #### [facility] [address] [place], [address] Neutrophils/100 WBC (Bld) 59.8 % Normal 47-70 [facility] Comment on above: Performed By: #### L 500.4050, L100.0100, L3400.4800, L506.1001 #### [facility] [address] [place], [address] Nucleated RBC (Bld) [#/Vol] 0 10*3/uL Normal 0-5 [facility] Comment on above: Performed By: #### L 500.4050, L100.0100, L3400.4800, L506.1001 #### [facility] [address] [place], [address] Platelet mean volume (Bld) [Entitic vol] 9.4 fL Normal 6.2-12.0 [facility] Comment on above: Performed By: #### L 500.4050, L100.0100, L3400.4800, L506.1001 #### [facility] [address] [place], [address] Platelets (Bld) [#/Vol] 270 10*3/uL Normal 150-450 [facility] Comment on above: Performed By: #### L 500.4050, L100.0100, L3400.4800, L506.1001 #### [facility] [address] [place], [address] RBC (Bld) [#/Vol] 5.61 10*6/uL Normal 4.6-6.2 [facility] Comment on above: Performed By: #### L 500.4050, L100.0100, L3400.4800, L506.1001 #### [facility] [address] [place], [address] RDW SD 39.3 fl Normal 35.1-43.9 [facility] Comment on above: Performed By: #### L 500.4050, L100.0100, L3400.4800, L506.1001 #### [facility] [address] [place], [address] WBC (Bld) [#/Vol] 6.0 10*3/uL Normal 4.4-11.0 [facility] Comment on above: Performed By: #### L 500.4050, L100.0100, L3400.4800, L506.1001 #### [facility] [address] [place], [address] Carbon dioxide, total [Moles /volume] in Central venous bloodOrdered By: Mary Knowles on 02-25-2025 CO2 [Moles/Vol] 25.8 mmol/L 21.0-32.0 [facility] Chloride assayOrdered By: Tru Knowles on 02-25-2025 Chloride [Moles/Vol] 103 mmol/L 98-108 [facility] Comprehensive Metabolic Prof ilon 02-25-2025 Albumin [Mass/Vol] 4.5 g/dL Normal 3.5-5.0 [facility] Comment on above: Performed By: #### L 500.4050, L100.0100, L3400.4800, L506.1001 #### [facility] [address] [place], [address] Albumin/Globulin [Mass ratio] 1.9 {ratio} Normal 0.9-2.4 [facility] Comment on above: Performed By: #### L 500.4050, L100.0100, L3400.4800, L506.1001 #### [facility] [address] [place], [address] ALK PHOS 75 U/L Normal 40-129 [facility] Comment on above: Performed By: #### L 500.4050, L100.0100, L3400.4800, L506.1001 #### [facility] [address] [place], [address] ALT [Catalytic activity/Vol] 47 U/L Normal <=46 [facility] Comment on above: Performed By: #### L 500.4050, L100.0100, L3400.4800, L506.1001 #### [facility] [address] [place], [address] AST [Catalytic activity/Vol] 28 U/L Normal <=37 [facility] Comment on above: Performed By: #### L 500.4050, L100.0100, L3400.4800, L506.1001 #### [facility] [address] [place], [address] Bilirubin [Mass/Vol] 1.02 mg/dL Normal 0.00-1.30 [facility] Comment on above: Performed By: #### L 500.4050, L100.0100, L3400.4800, L506.1001 #### [facility] [address] [place], [address] BUN/CRE 12.4 RATIO Normal 10-20 [facility] Comment on above: Performed By: #### L 500.4050, L100.0100, L3400.4800, L506.1001 #### [facility] [address] [place], [address] Calcium [Mass/Vol] 9.4 mg/dL Normal 7.6-11.0 [facility] Comment on above: Performed By: #### L 500.4050, L100.0100, L3400.4800, L506.1001 #### [facility] [address] [place], [address] Chloride [Moles/Vol] 103 mmol/L Normal 98-108 [facility] Comment on above: Performed By: #### L 500.4050, L100.0100, L3400.4800, L506.1001 #### [facility] [address] [place], [address] CO2 [Moles/Vol] 25.8 mmol/L Normal 21.0-32.0 [facility] Comment on above: Performed By: #### L 500.4050, L100.0100, L3400.4800, L506.1001 #### [facility] [address] [place], [address] Creatinine [Mass/Vol] 0.95 mg/dL Normal 0.70-1.20 [facility] Comment on above: Performed By: #### L 500.4050, L100.0100, L3400.4800, L506.1001 #### [facility] [address] [place], [address] GAP 9 Normal 5-15 [facility] Comment on above: Performed By: #### L 500.4050, L100.0100, L3400.4800, L506.1001 #### [facility] [address] [place], [address] GFR/1.73 sq M.predicted among non-blacks MDRD (S/P/Bld) [Vol rate/Area] 107 mL/min/{1.73_m2} Normal >60 [facility] Comment on above: Result Comment: mL/m in/1.73m2 CKD-EPI Creatinine Equation (2020) Performed By: #### L 500.4050, L100.0100, L3400.4800, L506.1001 #### [facility] [address] [place], [address] Globulin (S) [Mass/Vol] 2.4 g/dL Normal 2.2-4.2 [facility] Comment on above: Performed By: #### L 500.4050, L100.0100, L3400.4800, L506.1001 #### [facility] [address] [place], [address] Glucose [Mass/Vol] 99 mg/dL Normal 70-99 [facility] Comment on above: Performed By: #### L 500.4050, L100.0100, L3400.4800, L506.1001 #### [facility] [address] [place], [address] Potassium [Moles/Vol] 4.7 mmol/L Normal 3.3-5.1 [facility] Comment on above: Performed By: #### L 500.4050, L100.0100, L3400.4800, L506.1001 #### [facility] [address] [place], [address] Sodium [Moles/Vol] 138 mmol/L Normal 133-145 [facility] Comment on above: Performed By: #### L 500.4050, L100.0100, L3400.4800, L506.1001 #### [facility] [address] [place], [address] T PROT 6.9 g/dL Normal 5.9-8.4 [facility] Comment on above: Performed By: #### L 500.4050, L100.0100, L3400.4800, L506.1001 #### [facility] [address] [place], [address] Urea nitrogen [Mass/Vol] 12 mg/dL Normal 4-19 [facility] Comment on above: Performed By: #### L 500.4050, L100.0100, L3400.4800, L506.1001 #### [facility] [address] [place], [address] Eosinophil percentageOrdered By: Mary Knowles on 02-25-2025 Eosinophils/100 WBC (Bld) 1.7 % 0-5 [facility] Erythrocyte distribution wid th (RBC) [Ratio]Ordered By: Mary Knowles on 02-25-2025 Erythrocyte distribution width (RBC) [Entitic vol] 39.3 fL 35.1-43.9 [facility] Erythrocyte distribution wid th ratioOrdered By: Mary Knowles on 02-25-2025 Erythrocyte distribution width (RBC) [Ratio] 12.8 % 11.6-14.6 [facility] Erythrocyte distribution wid th standard deviationOrdered By: Mary Knowles on 02-25-2025 Erythrocyte distribution width (RBC) [Ratio] 39.3 fl 35.1-43.9 [facility] GFR/1.73 sq M.predicted floridalma g non-blacks MDRD (S/P/Bld) [Vol rate/Area]Ordered By: Mary Knowles on 02-25-2025 Estimated GFR (MDRD) Non-Af Amer 107 >60 [facility] Comment on above: mL/min/1.73m2 CKD-EP I Creatinine Equation (2020) Glomerular filtration rate ( GFR) estimation/1.73 sq m using serum, plasma, or whole bOrdered By: Mary Knowles on 02-25-2025 GFR/1.73 sq M.predicted among non-blacks MDRD (S/P/Bld) [Vol rate/Area] 107 mL/min/{1.73_m2} >60 [facility] Comment on above: mL/min/1.73m2 CKD-EP I Creatinine Equation (2020) Hematocrit Auto (Bld) [Volum e fraction]Ordered By: Mary Knowles on 02-25-2025 Hematocrit (Bld) [Volume fraction] 47.8 % 40-54 [facility] Hemoglobin measurementOrdere d By: Mary Knowles on 02-25-2025 Hemoglobin (Bld) [Mass/Vol] 16.8 g/dL High 13.0-16.5 [facility] Immature granulocytes/100 WB C Auto (Bld)Ordered By: Mary Knowles on 02-25-2025 Immature granulocytes/100 WBC (Bld) 0.300 % 0.0-0.9 [facility] Comment on above: IG% - Immature Granu locytes (promyelocytes, myelocytes and metamyelocytes) > 1% indicates that a LEFT SHIFT is Present. Laboratory - Chemistry and C hemistry - challengeOrdered By: Mary Knowles on 02-25-2025 AST [Catalytic activity/Vol] 28 U/L <38 [facility] Lymphocytes Auto (Unsp spec) [#/Vol]Ordered By: Mary Knowles on 02-25-2025 Lymphocytes (Bld) [#/Vol] 1.82 10*3/uL 0.83-4.51 [facility] Lymphocytes/100 WBC Auto (Un sp spec)Ordered By: Mary Knowles on 02-25-2025 Lymphocytes/100 WBC (Bld) 30.5 % 19-41 [facility] MCV (mean corpuscular volume ) determinationOrdered By: Mary Knowles on 02-25-2025 MCV (RBC) [Entitic vol] 85.2 fL 80-94 [facility] Mean corpuscular hemoglobin (MCH) determinationOrdered By: Mary Knowles on 02-25-2025 MCH (RBC) [Entitic mass] 29.9 pg 27.0-32.0 [facility] Mean corpuscular hemoglobin concentration (MCHC) determinationOrdered By: Mary Knowles on 02-25-2025 MCHC (RBC) [Mass/Vol] 35.1 g/dL 32-36 [facility] Mean platelet volume determi nationOrdered By: Mary Knowles on 02-25-2025 Platelet mean volume (Bld) [Entitic vol] 9.4 fL 6.2-12.0 [facility] Monocyte percentageOrdered B y: Mary Knowles on 02-25-2025 Monocytes/100 WBC (Bld) 7.0 % 0-10 [facility] Neutrophil percentageOrdered By: Mary Knowles on 02-25-2025 Neutrophils/100 WBC (Bld) 59.8 % 47-70 [facility] Nucleated red blood cell per centageOrdered By: Mary Knowles on 02-25-2025 Nucleated RBC/100 WBC (Bld) [Ratio] 0 % 0-5 [facility] Platelet countOrdered By: Tru Knowles on 02-25-2025 Platelets (Bld) [#/Vol] 270 10*3/uL 150-450 [facility] Potassium (Unsp spec) [Mass/ Vol]Ordered By: Mary Knowles on 02-25-2025 Potassium [Moles/Vol] 4.7 mmol/L 3.3-5.1 [facility] Potassium measurement (mass/ volume)Ordered By: Mary Knowles on 02-25-2025 Potassium (Unsp spec) [Mass/Vol] 4.7 mmol/L 3.3-5.1 [facility] RBC Auto (Bld) [#/Vol]Ordere d By: Mary Knowles on 02-25-2025 RBC (Bld) [#/Vol] 5.61 10*6/uL 4.6-6.2 [facility] Serum creatinine measurement (mass/volume)Ordered By: Mary Knowles on 02-25-2025 Creatinine [Mass/Vol] 0.95 mg/dL 0.70-1.20 [facility] Serum globulin measurementOr dered By: Mary Knowles on 02-25-2025 Globulin (S) [Mass/Vol] 2.4 g/dL 2.2-4.2 [facility] Serum glucose measurement (m ass/volume)Ordered By: Mary Knowles on 02-25-2025 Glucose [Mass/Vol] 99 mg/dL 70-99 [facility] Serum or plasma alanine canas otransferase (ALT) measurementOrdered By: Mary Knowles on 02-25-2025 ALT [Catalytic activity/Vol] 47 U/L <47 [facility] Serum or plasma albumin milton urement (mass/volume)Ordered By: Mary Knowles on 02-25-2025 Albumin [Mass/Vol] 4.5 g/dL 3.5-5.0 [facility] Serum or plasma albumin/glob ulin mass ratioOrdered By: Mary Knowles on 02-25-2025 Albumin/Globulin [Mass ratio] 1.9 {ratio} 0.9-2.4 [facility] Serum or plasma alkaline rick sphatase measurementOrdered By: Mary Knowles on 02-25-2025 ALP [Catalytic activity/Vol] 75 U/L 40-129 [facility] Serum or plasma calcium milton urement (mass/volume)Ordered By: Mary Knowles on 02-25-2025 Calcium [Mass/Vol] 9.4 mg/dL 7.6-11.0 [facility] Serum or plasma free testost erone measurement (mass/volume)Ordered By: Mary Knowles on 02-25-2025 Testosterone Free [Mass/Vol] 16.6 pg/mL 8.7-25.1 [facility] Comment on above: Performed at: [employer] [address] [id number] Director: Elle [place] MD, Phone: [phone] Serum or plasma urea nitroge n measurement (mass/volume)Ordered By: Mary Knowles on 02-25-2025 Urea nitrogen [Mass/Vol] 12 mg/dL 4-19 [facility] Sodium levelOrdered By: Evelin Knowles on 02-25-2025 Sodium [Moles/Vol] 138 mmol/L 133-145 [facility] Testosterone Free [Mass/Vol] Ordered By: Mary Knowles on 02-25-2025 Free Testosterone 16.6 pg/mL 8.7-25.1 [facility] Comment on above: Performed at: [employer] [facility] [address] [id number] Director: Elle [place] MD, Phone: [phone] Total proteinOrdered By: Reji Knowles on 02-25-2025 Protein [Mass/Vol] 6.9 g/dL 5.9-8.4 [facility] Vitamin D, 25-hydroxyOrdered By: Mary Knowles on 02-25-2025 Vitamin D 25-Hydroxy 19.3 ng/mL Low 30-100 [facility] Comment on above: Vitamin D StatusDefi ciency: <20 ng/mL (50nmol/L)Insufficiency: 20-30 ng/mL (50-75 nmol/L)Sufficiency: 30-100 ng/mL (75-250 nmol/L)Toxicity: >100 ng/mL (>250 nmol/L) Vitamin D,25 Hydroxyon 02-25 Vitamin D 25-OH 19.3 ng/mL Low 30-100 [facility] Comment on above: Result Comment: Jackeline min D Status Deficiency: <20 ng/mL (50nmol/L) Insufficiency: 20-30 ng/mL (50-75 nmol/L) Sufficiency: 30-100 ng/mL (75-250 nmol/L) Toxicity: >100 ng/mL (>250 nmol/L) Performed By: #### L 500.4050, L100.0100, L3400.4800, L506.1001 #### [facility] [address] [place], [address] White blood cell (WBC) count Ordered By: Mary Knowles on 02-25-2025 WBC (Bld) [#/Vol] 6.0 10*3/uL 4.4-11.0 [facility] Internal Medicine Office Vis mike 11-28-2024 Internal Medicine Office Visit [facility] [place] [address] [place] [address] OFFICE VISIT Date of Service: 11/29/24 MR#: [id number] Acct: [id number] Name: GREGORY JEAN BAPTISTE Rep #: [id number] : 1990 Provider: Dr. 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 Required: No Accompanied by: Self Is patient in pain?: No Allergies No Known Allergies Allergy (Verified 11/29/24 11:36) Medications ???Medication ???Instructions ???Recorded ???Confirmed ???Type varenicline tartrate 0.5 mg (11)-1 See Rx Instructions PO PER PKG DIR 01/06/24 11/29/24 Rx mg (42) tablets in a dose pack #53 tabs (Chantix Starting Month Box) trazodone 50 mg tablet 50 mg PO QHS #30 TABLETS 09/12/24 11/29/24 Rx pantoprazole 40 mg tablet,delayed 40 mg PO DAILY #30 tabs 11/09/24 11/29/24 Rx release (Protonix) Have you fallen in the past year?: No PFSH Medical History Hiatal hernia Acid reflux Diarrhea Abdominal pain Anxiety Depression Surgical History H/O esophagogastroduodenoscopy H/O colonoscopy Hx of wisdom tooth extraction Family History (Updated 11/29/24 @ 11:[address] Mary Knowles MD) Father Diabetes Heart disease s/p stents Hypertension Cancer multiple myeloma and leukemia Hyperlipidemia Uncle Heart disease Heart failure Brother Asperger syndrome Social History (Updated 11/29/24 @ 11:[address] 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 [employer] pets and animals: Yes pets and animals: cat(s) and dog(s) Smoking Status: Current every day smoker tobacco type: e-cigarettes Tobacco: How many years used: 8 Electronic Cigarette Use: with nicotine how long ago did patient quit smokin-1.5 cartridges per day second hand exposure: No quit status: considering quitting alcohol intake: current alcohol intake frequency: holidays/special occasions only substance use type: does not use caffeine: Yes (13) Type: carbonated beverages and coffee what type of physical activity do you participate in: none frequency: does not exercise seatbelt use: always do you feel safe at home: Yes HPI HPI Details: GREGORY JEAN BAPTISTE, is a 34 M who presents to the office today for a follow up. He is up to date on his routine blood work. He is not due for any screening. He doesn't want a flu shot. He does smoke e- cigarettes and was ordered chantix at a previous office visit. He never tried it, but states he is still considering it. He doesn't need any refills today. He reports he is eating somewhat healthy and staying active. He never followed up with GI as scheduled for his chronic abdominal pain. He reports that he has cut back on his diet. He reports if he overeats or eats greasy foods, he will get the pain. He states when it does flare up, it is in his lower abdomen. He hasn't had any symptoms in the last month and a half, however. He denies any associated nausea, vomiting, or change in bowel habits. He also denies any urinary symptoms. At his last office visit, he complained of sleep walking as well as depression and anxiety. He was started on a course of trazodone and counseled on his caffeine intake. He reports that he has cut back on his caffeine intake stating he is down to 4 cans per day. He reports he is sleeping well and no longer sleep walking. He states with his schedule, he does still take a while to fall asleep, however. 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 The patient has concerns about erectile dysfunction. He reports he no longer has any interest in having sex stating he is just tired all of the time. He reports he bought testosterone from an online pharmacy, but states he never ended up taking it. He reports he has trouble with getting and maintaining an erection, stating keeping it is harder, however. He denies any associated testicular pain. He reports he hasn't noticed any lumps or nodules. He denies any urinary symptoms. He has a lot of stress going on and isn't sure if that is related. ROS Const Constitutional: Positive for fatigue and weight change (weight gain); No body ache, excessive sweating, fever(s), freq (more content not included)... Normal [facility] CNCOon 09-24-2022 CNCO Letter Text Normal [facility] Comprehensive metabolic 2000 panelon 07-07-2022 Albumin [Mass/Vol] 5.0 g/dL High 3.9-4.9 [facility] Comment on above: Order Comment: Speci men Type: BLOOD SPECIMEN Ordering Facility: [facility] Address: [address] [place] [address] Performed By: #### 2 4323-8, 97462-0 #### [facility] CLIA [id number] [address] [place] [address] [place] ALP [Catalytic activity/Vol] 78 U/L Normal 38-113 [facility] Comment on above: Order Comment: Speci men Type: BLOOD SPECIMEN Ordering Facility: [facility] Address: [address] [place] [address] Performed By: #### 2 4323-8, 27222-1 #### [facility] CLIA [id number] [address] [place] [address] [place] ALT [Catalytic activity/Vol] 34 U/L Normal 10-54 [facility] Comment on above: Order Comment: Speci men Type: BLOOD SPECIMEN Ordering Facility: [facility] Address: [address] [place] [address] Performed By: #### 2 4323-8, 61694-2 #### [facility] CLIA [id number] [address] [place] [address] [place] Anion gap [Moles/Vol] 9 mmol/L Normal 9-18 [facility] Comment on above: Order Comment: Speci men Type: BLOOD SPECIMEN Ordering Facility: [facility] Address: [address] [place] [address] Performed By: #### 2 4323-8, 05184-2 #### [facility] CLIA [id number] [address] [place] [address] [place] AST [Catalytic activity/Vol] 23 U/L Normal 14-40 [facility] Comment on above: Order Comment: Speci men Type: BLOOD SPECIMEN Ordering Facility: [facility] Address: [address] [place], [place] [id number] Performed By: #### 2 4323-8, 89446-1 #### [facility] CLIA [id number] [address] [place] [address] [place] Bilirubin [Mass/Vol] 1.0 mg/dL Normal 0.2-1.3 [facility] Comment on above: Order Comment: Speci men Type: BLOOD SPECIMEN Ordering Facility: [facility] Address: [address] [place], [place] [id number] Performed By: #### 2 4323-8, 63457-3 #### [facility] CLIA [id number] [address] [place] [address] [place] Calcium [Mass/Vol] 10.2 mg/dL Normal 8.5-10.2 [facility] Comment on above: Order Comment: Speci men Type: BLOOD SPECIMEN Ordering Facility: [facility] Address: [address] [place] [address] Performed By: #### 2 4323-8, 98757-3 #### [facility] CLIA [id number] [address] [place] [address] [place] Chloride [Moles/Vol] 103 mmol/L Normal 97-105 [facility] Comment on above: Order Comment: Speci men Type: BLOOD SPECIMEN Ordering Facility: [facility] Address: [address] [place] [address] Performed By: #### 2 4323-8, 66194-5 #### [facility] CLIA [id number] [address] [place] [address] [place] CO2 [Moles/Vol] 29 mmol/L Normal 22-30 [place] [facility] Comment on above: Order Comment: Speci men Type: BLOOD SPECIMEN Ordering Facility: [facility] Address: [address] [place] [address] Performed By: #### 2 4323-8, 46248-7 #### [facility] CLIA [id number] [address] [place] [address] OF [facility] Creatinine [Mass/Vol] 0.93 mg/dL Normal 0.73-1.22 [facility] Comment on above: Order Comment: Speci men Type: BLOOD SPECIMEN Ordering Facility: [facility] Address: [address] [place] [address] Performed By: #### 2 4323-8, 48494-6 #### [facility] CLIA [id number] [address] [place] [address] OF [facility] ESTIMATED GLOMERULAR FILTRATION RATE 112 mL/min/1.73m??? Normal >=60 [facility] Comment on above: Order Comment: Speci men Type: BLOOD SPECIMEN Ordering Facility: [facility] Address: [address] [place] [address] Result Comment: Bianca mated Glomerular Filtration Rate (eGFR) is calculated using the 2020 CKD-EPI creatinine equation. This equation utilizes serum creatinine, sex, and age as parameters. The creatinine assay has traceable calibration to isotope dilution-mass spectrometry. Refer to KDIGO guidelines for clinical interpretation. In patients with unstable renal function, e.g. those with acute kidney injury, the eGFR may not accurately reflect actual GFR. Performed By: #### 2 4323-8, 80535-6 #### [facility] CLIA [id number] [address] [place] [address] [place] Glucose [Mass/Vol] 87 mg/dL Normal 74-99 [facility] Comment on above: Order Comment: Specpriscila men Type: BLOOD SPECIMEN Ordering Facility: [facility] Address: [address] [place] [address] Result Comment: The [place] Diabetes Association (ADA) provides guidance for cutoff values for fasting glucose and random glucose. The ADA defines fasting as no caloric intake for at least 8 hours. Fasting plasma glucose results between 100 to 125 mg/dL indicate increased risk for diabetes (prediabetes). Fasting plasma glucose results greater than or equal to 126 mg/dL meet the criteria for diagnosis of diabetes. In the absence of unequivocal hyperglycemia, results should be confirmed by repeat testing. In a patient with classic symptoms of hyperglycemia or hyperglycemic crisis, random plasma glucose results greater than or equal to 200 mg/dL meet the criteria for diagnosis of diabetes. Reference: Standards of Medical Care in Diabetes 2016, [place] [employer] Diabetes Association. Diabetes Care. 2016.39(Suppl 1). Performed By: #### 2 4323-8, 63620-7 #### [facility] CLIA [id number] [address] [place] [address] [place] Potassium [Moles/Vol] 4.8 mmol/L Normal 3.7-5.1 [facility] Comment on above: Order Comment: Kaushik gill Type: BLOOD SPECIMEN Ordering Facility: [facility] Address: [address] [place], [place] [phone] Performed By: #### 2 4323-8, 98643-6 #### [facility] CLIA [id number] [address] [place] [address] [place] Protein [Mass/Vol] 7.2 g/dL Normal 6.3-8.0 [facility] Comment on above: Order Comment: Kaushik gill Type: BLOOD SPECIMEN Ordering Facility: [facility] Address: [address] [place], [place] [address] Performed By: #### 2 4323-8, 88371-9 #### [facility] CLIA [id number] [address] [place] [address] [place] Sodium [Moles/Vol] 141 mmol/L Normal 136-144 [facility] Comment on above: Order Comment: Speci men Type: BLOOD SPECIMEN Ordering Facility: [facility] Address: [address] [place] [address] Performed By: #### 2 4323-8, 48087-0 #### [facility] CLIA [id number] [address] [place] [address] [place] Urea nitrogen [Mass/Vol] 12 mg/dL Normal 9-24 [facility] Comment on above: Order Comment: Speci men Type: BLOOD SPECIMEN Ordering Facility: [facility] Address: [address] [place] [address] Performed By: #### 2 4323-8, 02947-2 #### [facility] CLIA [id number] [address] [place] [address] [place] Lipid 1996 panelon 2 Cholesterol [Mass/Vol] 178 mg/dL Normal <200 [facility] Comment on above: Order Comment: Speci men Type: BLOOD SPECIMEN Ordering Facility: [facility] Address: [address] [place] [address] Result Comment: <200 mg/dL, Desirable 200-239 mg/dL, Borderline high >239 mg/dL, High Performed By: #### 2 4323-8, 90400-7 #### [facility] CLIA [id number] [address] [place] [address] [place] Cholesterol in HDL [Mass/Vol] 33 mg/dL Low >39 [facility] Comment on above: Order Comment: Speci men Type: BLOOD SPECIMEN Ordering Facility: [facility] Address: [address] [place] [address] Result Comment: 40-5 9 mg/dL, Acceptable >59 mg/dL, High: Negative risk factor for coronary heart disease <40 mg/dL, Low: Positive risk factor for coronary heart disease Performed By: #### 2 4323-8, 08085-1 #### [facility] CLIA [id number] [address] [place] [address] [place] Cholesterol in LDL [Mass/Vol] 119 mg/dL High <100 [facility] Comment on above: Order Comment: Speci men Type: BLOOD SPECIMEN Ordering Facility: [facility] Address: [address] [place] [address] Result Comment: <100 mg/dL, Optimal 100-129 mg/dL, Near optimal/above optimal 130-159 mg/dL, Borderline high 160-189 mg/dL, High >189 mg/dL, Very high Secondary prevention optimal LDL Cholesterol levels are recommended to be < 70 mg/dL Performed By: #### 2 4323-8, 95583-4 #### [facility] CLIA [id number] [address] [place] [address] Cholesterol in LDL/Cholesterol in HDL [Mass ratio] 3.61 {ratio} High <2.54 [facility] Comment on above: Order Comment: Mariferi men Type: BLOOD SPECIMEN Ordering Facility: [facility] Address: [address] [place] [address] Result Comment: Flor menchaca: 1. National Cholesterol Education Program ATP III Guideline At-A-Glance Quick Desk Reference: National Heart, Lung, and Blood Cobalt. National Institutes of Health. 2001: NIH Publication No. 01-3305. 2. An International Atherosclerosis Society position paper: global recommendations for the management of dyslipidemia: executive summary, Atherosclerosis. 2014: 232(2):410-413. Performed By: #### 2 4323-8, 90308-8 #### [facility] CLIA [id number] [address] [place] [address] [place] Cholesterol in VLDL [Mass/Vol] 26 mg/dL Normal <30 [facility] Comment on above: Order Comment: Mariferi men Type: BLOOD SPECIMEN Ordering Facility: [facility] Address: [address] [place] [address] Performed By: #### 2 4323-8, 52559-1 #### [facility] CLIA [id number] [address] [place] [address] [place] Cholesterol non HDL [Mass/Vol] 145 mg/dL High <130 [facility] Comment on above: Order Comment: Speci men Type: BLOOD SPECIMEN Ordering Facility: [facility] Address: [address] [place], [place] [phone] Result Comment: <130 mg/dL, Optimal 130-159 mg/dL, Near optimal/above optimal 160-189 mg/dL, Borderline high 190-219 mg/dL, High >219 mg/dL, Very high Secondary prevention optimal non HDL Cholesterol levels are recommended to be <100 mg/dL Performed By: #### 2 4323-8, 45731-5 #### [facility] CLIA [id number] [address] [place] [address] [place] Cholesterol.total/Chol esterol in HDL [Mass ratio] 5.39 {ratio} High <5.10 [facility] Comment on above: Order Comment: Speci men Type: BLOOD SPECIMEN Ordering Facility: [facility] Address: [address] [place] [address] Performed By: #### 2 4323-8, 23825-7 #### [facility] CLIA [id number] [address] [place] [address] [place] FASTING TIME 12 hrs Normal [facility] Comment on above: Order Comment: Speci men Type: BLOOD SPECIMEN Ordering Facility: [facility] Address: [address] [id number] Performed By: #### 2 4323-8, 31053-9 #### [facility] CLIA [id number] [address] [place] [address] [place] Triglyceride [Mass/Vol] 129 mg/dL Normal <150 [facility] Comment on above: Order Comment: Speci men Type: BLOOD SPECIMEN Ordering Facility: [facility] Address: [address] [place] [id number] Result Comment: <150 mg/dL, Normal 150-199 mg/dL, Borderline high 200-499 mg/dL, High >499 mg/dL, Very high Performed By: #### 2 4323-8, 60318-7 #### [facility] CLIA [id number] [address] [place] [id number] OF [facility] CNOVon 07-03-2022 CNOV Office Visit (INTMWS ) LENARDGREGORY GONZALEZ ([id number]) 1990 M Date Time Provider Department 07/03/22 11:00 AM CLARISSA MORIN INTMWS During your visit today, we recorded the following information about you: Pulse Respiration Blood pressure Weight 74/minute 16/minute 116/64 95.7 kg Height 1.829 m Clarissa Morin APRN.CNP 07/03/2022 11:36 AM Signed CC: Patient presents with: Establish Care HPI Gregory Jean Baptiste is a 31 year old male who presents today for above. Exercise: denies regular aerobic exercise. Stays very active at work, walks a lot. Averages 16 miles a day. Diet: Watches diet for salt (salty snacks, added salt, processed frozen/canned foods), sugary/sweet snacks, unhealthy fats: No REVIEW OF SYSTEMS General: no fevers, no chills, no night sweats, no change in appetite, no change in energy, and no significant changes in weight HEENT: no frequent or significant headaches, no changes in hearing, no visual changes Respiratory: no cough, no wheezing, no shortness of breath Cardiovascular: no chest pain, no chest pressure, no palpitations, no swelling, and no decrease in exercise tolerance GI: Negative for abdominal discomfort, blood in stools or black stools, change in bowel habit, heart burn, nausea, vomiting : No difficulty urinating, nocturia > 1 time per night or hematuria Musculoskeletal: Negative for joint pain or swelling, back pain or muscle pain Skin: Negative for lesions, rash, and itching Psych: Negative for sleep disturbance, mood disorder and recent psychosocial stressors History reviewed. No pertinent past medical history. PAST SURGICAL HISTORY Procedure Laterality Date PAST SURGICAL HISTORY OF 2021 penile silicone implant ALLERGIES Patient has no known allergies. MEDICATIONS naproxen sodium (ALEVE) 220 mg tablet Takes as needed FAMILY HISTORY Problem Relation Age of Onset Hyperlipidemia Mother Hypertension Mother Heart Mother arrhythmia Diabetes Father Blood Disease Father multiple myeloma Hypertension Father Hyperlipidemia Father Osteoporosis Father Coronary Artery Disease Father Liver Disease Father No Known Problems Maternal Grandmother Heart Attack Maternal Grandfather at age 43 No Known Problems Paternal Grandmother Cancer Paternal Grandfather stomach Liver Disease Paternal Grandfather liver failure No Known Problems Half-brother Obesity Half-sister Hypertension Half-sister No Known Problems Daughter No Known Problems Son PHYSICAL EXAM BP 116/64 Pulse 74 Resp 16 Ht 182.9 cm (6') Wt 95.7 kg (211 lb) BMI 28.62 kg/m? General Appearance: well appearing, in no acute distress, alert Pysch: mood and affect broad and appropriate Skin: Skin color, texture, turgor normal for age; Eyes: conjunctiva pink and moist, no icterus, sclera white, non-injected Neck: Thyroid normal size and symmetric without palpable nodules, Neck supple, No adenopathy Lymph nodes: No supraclavicular lymphadenopathy Lungs: Lungs clear to auscultation. No wheezing, rhonchi, rales. Heart: RRR without murmur, gallop, or rubs. No ectopy Ext: no edema in LE bilaterally, good distal pulses Health maintenance reviewed with patient: HEPATITIS B(1 of 3 - 3-dose series) Never done HEPATITIS C SCREENING Never done HIV SCREENING Never done DTAP,TDAP,TD(1 - Tdap) Never done COVID-19 VACCINE(1) due on 07/03/2023 INFLUENZA(1) due on 07/24/2022 DEPRESSION SCREENING due on 07/03/2023 ASSESSMENT/PLAN: 1. Wellness examination - ICD9: V70.0, ICD10: Z00.00 (primary diagnosis) - Counseled on healthy diet and regular exercise - Discussed need for and benefit of weight loss. BMI 28.62 kg/(m2) - Smoking cessation encouraged; discussed risks to health and quitting strategies. Patient is not ready to quit - Depression screening tool completed and reviewed with patient. Based on score and interview, patient is not at risk for depression and recommended no further intervention at this time. - Patient was counseled [id number] by myself (the billing provider) for the following immunizations and vaccine components, including side effects: TdaP. Patient consents for immunization and understands risks and benefits. A VIS sheet on each immunization was given to the patient. - Follow up for annual exam in one year - LIPID PANEL BASIC - COMP METABOLIC PANEL 2. Overweight (BMI 25.0-29.9) - ICD9: 278.02, ICD10: E66.3 Weight increasing - CONSULT TO NUTRITION THERAPY per patient request 3. Family history of heart disease in male family member before age 55 - ICD9: V17.49, ICD10: Z82.49 - CONSULT TO NUTRITION THERAPY 4. Encounter for immunization - ICD9: V03.89, ICD10: Z23 - TDAP VACCINE AGE 7+ IM Prescription instructions reviewed with patient as applicable. Potential red flag symptoms discussed with the patient. Reviewed appropriate action plan to t (more content not included)... Normal [facility] CORONAVIRUS PCR - [facility] 12-16-2021 SARS-CoV-2 (COVID-19) RNA JERZY+probe Ql (Unsp spec) Negative Normal NORMAL: NEGATIVE [facility] Comment on above: Performed By: #### 2 41950 #### [facility],[address] [place] [address] SEND TO IC? YES Normal [facility] Comment on above: Result Comment: RESU LTS FAXED TO INFECTION CONTROL. SARS-CoV-2 THIS TEST IS BEING USED UNDER THE FDA EUA PROCEDURE. THIS ASSAY HAS BEEN VALIDATED IN THE [facility] FOR USE WITH NASOPHARYNGEAL SPECIMENS IN [facility]. [facility] TEST RESULTS SHOULD ALWAYS BE CONSIDERED IN THE CONTEXT OF CLINICAL OBSERVATIONS AND EPIDEMIOLOGICAL DATA IN MAKING FINAL DIAGNOSIS AND PATIENT MANAGEMENT DECISIONS. PATIENT MANAGEMENT SHOULD FOLLOW CURRENT CDC GUIDELINES. A POSITIVE TEST RESULT FOR COVID-19 INDICATES THAT RNA FROM SARS-CoV-2 WAS DETECTED, AND THE PATIENT IS INFECTED WITH THE VIRUS AND PRESUMED TO BE CONTAGIOUS. A NEGATIVE TEST RESULT FOR THIS TEST MEANS THAT SARS-CoV-2 RNA WAS NOT PRESENT IN THE SPECIMEN ABOVE THE LIMIT OF DETECTION. HOWEVER, A NEGATVIE RESULT DOES NOT RULE OUT COVID-19 AND SHOULD NOT BE USED THE SOLE BASIS FOR TREATMENT OR PATIENT MANAGEMENT DECISIONS. A NEGATIVE RESULT DOES NOT EXCLUDE THE POSSIBILITY OF COVID-19. WHEN DIAGNOSTIC TESTING IS NEGATIVE, THE POSSIBLILTY OF A FALSE NEGATIVE RESULT SHOULD BE CONSIDERED IN THE CONTEXT OF A PATIENT'S RECENT EXPOSURES AND THE PRESENCE OF CLINICAL SIGNS AND SYMPTOMS CONSISTENT WITH COVID-19. THE POSSIBILITY OF A FALSE NEGATIVE RESULT SHOULD ESPECIALLY BE CONSIDERED IF THE PATIENT'S RECENT EXPOSURES OR CLINICAL PRESENTATION INDICATE THAT COVID-19 IS LIKELY, AND DIAGNOSTIC TESTS FOR OTHER CAUSES OF ILLNESS (e.g., OTHER RESPIRATORY ILLNESS) ARE NEGATIVE. IF COVID-19 IS STILL SUSPECTED BASED ON EXPOSURE HISTORY TOGETHER WITH OTHER CLINICAL FINDINGS, RE-TESTED SHOULD BE CONSIDERED BY HEALTHCARE PROVIDERS IN CONSULTATION WITH PUBLIC HEALTH AUTHORITIES. Performed By: #### 2 08712 #### [facility],[address] [place] [address] BMP with eGFRon 12-11-2021 AGE 31 years Normal [facility] Comment on above: Performed By: #### 2 29915 #### [facility],[address] [place] [address] Anion gap [Moles/Vol] 9 mmol/L Low 10 - 20 [facility] Comment on above: Performed By: #### 2 19310 #### [facility],[address] [place] [address] 65583 BMP with eGFR Normal [facility] Comment on above: Result Comment: BASI C METABOLIC PANEL Performed By: #### 2 42687 #### [facility],[address] [place] [address]40 Calcium [Mass/Vol] 8.3 mg/dL Low 8.5 - 10.1 [facility] Comment on above: Performed By: #### 2 43442 #### [facility],[address] [place] [address]9636 Chloride [Moles/Vol] 104 mmol/L Normal 98 - 107 [facility] Comment on above: Performed By: #### 2 43637 #### [facility],[address] [place] [address]258 CO2 [Moles/Vol] 31.2 mmol/L Normal 21.0 - 32.0 [facility] Comment on above: Performed By: #### 2 65009 #### [facility],[address] [place] [address] Creatinine [Mass/Vol] 1.05 mg/dL Normal 0.70 - 1.30 [facility] Comment on above: Performed By: #### 2 68165 #### [facility],[address] [place] [address]9738 GFR/1.73 sq M.predicted among non-blacks MDRD (S/P/Bld) [Vol rate/Area] mL/min/{1.73_m2} Normal 60 - 999 [facility] Comment on above: Performed By: #### 2 01364 #### [facility],[address] [place] [address] Result Comment: ACCO RDING TO THE NATIONAL KIDNEY DISEASE EDUCATION PROGRAM(NKDE), A NORMAL eGFR IS A VALUE GREATER THAN OR EQUAL TO 60 ML/MIN/1.73 SQ METERS. CHRONIC KIDNEY DISEASE: <60mL/MIN/1.73 SQ METERS KIDNEY FAILURE: <15mL/MIN/1.73 SQ METERS THIS TEST SHOULD ONLY BE USED FOR PATIENTS 18 YEARS OF AGE AND OLDER. Glucose [Mass/Vol] 88 mg/dL Normal 74 - 106 [facility] Comment on above: Performed By: #### 2 41754 #### [facility],[address] [place] [address] Potassium [Moles/Vol] 4.1 mmol/L Normal 3.5 - 5.1 [facility] Comment on above: Performed By: #### 2 60647 #### [facility],[address] [place] [address]8721 Sodium [Moles/Vol] 140 mmol/L Normal 136 - 145 [facility] Comment on above: Performed By: #### 2 35453 #### [facility],[address] [place] [address] Urea nitrogen [Mass/Vol] 11 mg/dL Normal 7 - 18 [facility] Comment on above: Performed By: #### 2 66433 #### [facility],[address] [place] [address] CBC + DIFFon 12-11-2021 Baso # 0.00 x10EE3/UL Normal 0.00 - 0.10 [facility] Comment on above: Performed By: #### 2 86785 #### [facility],[address] [place] [address] Basophils/100 WBC (Bld) 0.7 % Normal 0.0 - 2.0 [facility] Comment on above: Performed By: #### 2 01717 #### [facility],[address] [place] [address] CBC + DIFF Normal [facility] Comment on above: Result Comment: CBC- COMPLETE BLOOD COUNT Performed By: #### 2 83250 #### [place] [address] EO # 0.10 x10EE3/UL Normal 0.00 - 0.50 [facility] Comment on above: Performed By: #### 2 06198 #### [facility],[address] [place] [address] Eosinophils/100 WBC (Bld) 1.4 % Normal 0.0 - 7.0 [facility] Comment on above: Performed By: #### 2 04422 #### [place] [address] Erythrocyte distribution width (RBC) [Ratio] 13.5 % Normal 12.0 - 15.6 [facility] Comment on above: Performed By: #### 2 52797 #### [place] [address] Hematocrit (Bld) [Volume fraction] 45.8 % Normal 40.0 - 52.0 [facility] Comment on above: Performed By: #### 2 88566 #### [facility],[address] [place], [place] [id number] Hemoglobin (Bld) [Mass/Vol] 16.3 g/dL Normal 13.0 - 17.5 [facility] Comment on above: Performed By: #### 2 20903 #### [facility],[address] [place], [place] [id number] Lymph # 1.50 x10EE3/UL Normal 0.80 - 2.80 [facility] Comment on above: Performed By: #### 2 93461 #### [facility],[address] [place], [place] [id number] Lymphocytes/100 WBC (Bld) 22.3 % Normal 20.0 - 45.0 [facility] Comment on above: Performed By: #### 2 28083 #### [facility],[address] [place], [place] [id number] MANUAL DIFF N/A Normal [facility] Comment on above: Performed By: #### 2 96439 #### [facility],[address] [place] [address]20 MCH (RBC) [Entitic mass] 31 pg Normal 27 - 33 [facility] Comment on above: Performed By: #### 2 06106 #### [facility],[address] [place] [address]3214 MCHC 36 X10 3 Normal 32 - 36 [facility] Comment on above: Performed By: #### 2 09860 #### [facility],[address] [place] [address]8594 MCV (RBC) [Entitic vol] 86 fL Normal 81 - 98 [facility] Comment on above: Performed By: #### 2 24651 #### [facility],[address] [place], [place] [id number] [place] # 0.40 x10EE3/UL Normal 0.20 - 1.00 [facility] Comment on above: Performed By: #### 2 67713 #### [facility],[address] [place] [address]503 MONOS % 5.8 % Normal 0.0 - 10.0 [facility] Comment on above: Performed By: #### 2 88631 #### [facility],[address] [place] [address] Morphology Zachary (Bld) [Interp] N/A Normal [facility] Comment on above: Result Comment: {CD] Performed By: #### 2 61780 #### [facility],[address] [place] [address] Neut # 4.70 x10EE3/UL Normal 1.50 - 7.10 [facility] Comment on above: Performed By: #### 2 41407 #### [facility],[address] [place] [address] Neutrophils/100 WBC (Bld) 69.8 % Normal 46.0 - 76.0 [facility] Comment on above: Performed By: #### 2 35618 #### [facility],[address] [place] [address] PLATELET 351 x10EE3/UL Normal 150 - 450 [facility] Comment on above: Performed By: #### 2 20452 #### [facility],[address] [place] [address] Platelet mean volume (Bld) [Entitic vol] 7.7 fL Normal 6.4 - 10.5 [facility] Comment on above: Result Comment: AUTO MATED DIFFERENTIAL Performed By: #### 2 88058 #### [facility],[address] [place] [address] RBC 5.33 x 10EE6/UL Normal 4.50 - 6.00 [facility] Comment on above: Performed By: #### 2 30763 #### [facility],[address] [place] [address]33 WBC 6.8 x 10EE3/UL Normal 4.5 - 10.8 [facility] Comment on above: Performed By: #### 2 94142 #### [facility],[address] [place] [address] CHEST 2 VIEWSon 12-11-2021 CHEST [address] [address] Patient: GREGORY JEAN BAPTISTE Phone#: : 1990 Age: 31 Gender: M Pt. Type: Out Account: [id number] Location: Ordering: TOMASZ FLYNN Exam Date: 12/11/2021/15:42 Family Phys: Charge Code: [id number] Physician: Floyd Order #: [id number] DLP Dose#: PROCEDURE: X-RAY CHEST 2 VIEWS COMPARISON: None. INDICATIONS: Pre-operative evaluation. FINDINGS: LUNGS: Normal. No significant pulmonary parenchymal abnormalities. VASCULATURE: Normal. Unremarkable pulmonary vasculature. CARDIAC: Normal. No cardiac silhouette abnormality or cardiomegaly. MEDIASTINUM: Normal. No visible mass or adenopathy. PLEURA: Normal. No effusion or pleural thickening. BONES: Normal. No fracture or visible bony lesion. OTHER: Negative. CONCLUSION: No acute disease. Dictated by: Liza Almeida MD on 12/11/2021 at 15:48 Approved by: Liza Almeida MD on 12/11/2021 at 15:49 Normal [facility] Vital Signs Date Time Vital Sign Value Performing Clinician Josefina valenzuela 06-16-2025 08:54-0400 Body temperature 97 [degF] Dr. Mary Knowles MD Work Phone: [facility] 06-16-2025 08:54-0400 Diastolic blood pressure 75 mm[Hg] Dr. Mary Knowles MD Work Phone: [facility] 06-16-2025 08:54-0400 Heart rate 77 /min Dr. Mary Knowles MD Work Phone: [facility] 06-16-2025 08:54-0400 SaO2% (BldA) [Mass fraction] 99 % Dr. Mary Knowles MD Work Phone: [facility] 06-16-2025 08:54-0400 Systolic blood pressure 119 mm[Hg] Dr. Mary Knowles MD Work Phone: [facility] 05-03-2025 08:25-0400 Body height 185.[address] Mary Knowles MD Work Phone: [facility] 05-03-2025 08:25-0400 Body mass index (BMI) [Ratio] 30.4 kg/m2 Dr. Mary Knowles MD Work Phone: [facility] 05-03-2025 08:25-0400 Body weight 104.[address] Mary Knowles MD Work Phone: [facility] 05-03-2025 08:25-0400 Diastolic blood pressure 80 mm[Hg] Dr. Mary Knowles MD Work Phone: [facility] 05-03-2025 08:25-0400 Heart rate 76 /min Dr. Mary Knowles MD Work Phone: [facility] 05-03-2025 08:25-0400 Respiratory rate 17 /min Dr. Mary Knowles MD Work Phone: [facility] 05-03-2025 08:25-0400 SaO2% (BldA) [Mass fraction] 97 % Dr. Mary Knowles MD Work Phone: [facility] 05-03-2025 08:25-0400 Systolic blood pressure 118 mm[Hg] Dr. Mary Knowles MD Work Phone: [facility] 04-26-2025 08:37-0400 Body height 185.[address] Mary Knowles MD Work Phone: [facility] 04-26-2025 08:37-0400 Body mass index (BMI) [Ratio] 30.3 kg/m2 Dr. Mary Knowles MD Work Phone: [facility] 04-26-2025 08:37-0400 Body temperature 97.8 [degF] Dr. Mary Knowles MD Work Phone: [facility] 04-26-2025 08:37-0400 Body weight 104.[address] Mary Knowles MD Work Phone: [facility] 04-26-2025 08:37-0400 Diastolic blood pressure 68 mm[Hg] Dr. Mary Knowles MD Work Phone: [facility] 04-26-2025 08:37-0400 Heart rate 102 /min Dr. Mary Knowles MD Work Phone: [facility] 04-26-2025 08:37-0400 Respiratory rate 18 /min Dr. Mary Knowles MD Work Phone: [facility] 04-26-2025 08:37-0400 SaO2% (BldA) [Mass fraction] 97 % Dr. Mary Knowles MD Work Phone: [facility] 04-26-2025 08:37-0400 Systolic blood pressure 122 mm[Hg] Dr. Mary Knowles MD Work Phone: [facility] 03-15-2025 09:06-0400 Body mass index (BMI) [Ratio] 30.4 kg/m2 Dr. Mary Knowles MD Work Phone: [facility] 03-15-2025 09:06-0400 Body temperature 96.2 [degF] Dr. Mary Knowles MD Work Phone: [facility] 03-15-2025 09:06-0400 Body weight 104.[address] Mary Knowles MD Work Phone: [facility] 03-15-2025 09:06-0400 Diastolic blood pressure 82 mm[Hg] Dr. Mary Knowles MD Work Phone: [facility] 03-15-2025 09:06-0400 Heart rate 71 /min Dr. Mary Knowlse MD Work Phone: [facility] 03-15-2025 09:06-0400 Respiratory rate 16 /min Dr. Mary Knowles MD Work Phone: [facility] 03-15-2025 09:06-0400 SaO2% (BldA) [Mass fraction] 98 % Dr. Mary Knowles MD Work Phone: [facility] 03-15-2025 09:06-0400 Systolic blood pressure 124 mm[Hg] Dr. Mary Knowles MD Work Phone: [facility] 11-29-2024 11:47-0500 Body height 185.[address] Mary Knowles MD Work Phone: [facility] 11-29-2024 11:47-0500 Body mass index (BMI) [Ratio] 30.2 kg/m2 Dr. Mary Knowles MD Work Phone: [facility] 11-29-2024 11:47-0500 Body temperature 97.5 [degF] Dr. Mary Knowles MD Work Phone: [facility] 11-29-2024 11:47-0500 Body weight 103.[address] Mary Knowles MD Work Phone: [facility] 11-29-2024 11:47-0500 Diastolic blood pressure 78 mm[Hg] Dr. Mary Knowles MD Work Phone: [facility] 11-29-2024 11:47-0500 Heart rate 76 /min Dr. Mary Knowles MD Work Phone: [facility] 11-29-2024 11:47-0500 Respiratory rate 16 /min Dr. Mary Knowles MD Work Phone: [facility] 11-29-2024 11:47-0500 SaO2% (BldA) [Mass fraction] 99 % Dr. Mary Knowles MD Work Phone: [facility] 11-29-2024 11:47-0500 Systolic blood pressure 138 mm[Hg] Dr. Mary Knowles MD Work Phone: [facility] 08-14-2022 09:38-0400 Body height 182.[address] [facility] 08-14-2022 09:38-0400 Body weight 97.[address] [facility] 07-07-2022 08:44-0400 Body height 182.[address] [facility] 07-07-2022 08:44-0400 Body weight 96.[address] [facility] Encounters Encounter Date Encounter Type Care Provider Facility Start: 07-18-2025 ambulatory Mary Knowles Facility :[facility] Start: 06-16-2025 End: 06-16-2025 Admission to same day surgery center Dr. Dewey Elmore MD -Endoscopy Work Phone: Start: 06-16-2025 End: 06-16-[address] Mary Knowles MD Work Phone: -Endoscopy Start: 05-16-2025 ambulatory Mary Knowles Facility :[facility] Start: 05-03-2025 End: 05-03-[address] Dewey Elmore MD -[facility] Work Phone: Start: 05-03-2025 End: 05-03-[address] Mary Knowles MD Work Phone: [facility] Work Phone: Start: 04-26-2025 End: 04-26-[address] Mary Knowles MD -[facility] Work Phone: Start: 04-26-2025 End: 04-26-[address] Mary Knowles MD Work Phone: [facility] Work Phone: Start: 03-15-2025 End: 03-15-[address] Mary Knowles MD -[facility] Work Phone: Start: 03-15-2025 End: 03-15-2025 ambulatory Mary Knowles Facility:[facility] Start: 02-25-2025 End: 02-25-[address] Mary Knowles MD Work Phone: [facility] Work Phone: Start: 02-25-2025 End: 02-25-[address] Mary Knowles MD -Laboratory Work Phone: Start: 02-25-2025 End: 02-25-2025 ambulatory Mary Knowles Facility:[facility] Start: 11-29-2024 End: 11-29-[address] Mary Knowles MD -[facility] Work Phone: Start: 11-29-2024 End: 11-29-2024 ambulatory Mary Knowles Facility:[facility] Start: 08-14-2022 End: 08-14-2022 ambulatory NAZANIN AMIN Facility:[facility] Start: 08-14-2022 End: 08-14-[address] Nutrition Therapy Comment on above: Overweight (Primary Dx); Dietary counseling Start: 08-14-2022 End: 08-14-2022 Telemedicine consultation with patient Nazanin Amin RD [facility] Start: 07-07-2022 Encounter for genera l adult medical examination without abnormal findings NAZANIN AMIN [facility] Start: 07-07-2022 End: 07-08-2022 ambulatory NAZANIN AMIN Facility:[facility] Start: 07-07-2022 End: 07-07-[address] Nutrition Therapy Comment on above: Assessment; Patient Education Start: 07-03-2022 End: 07-03-2022 ambulatory CLARISSA OLDER Facility:[facility] Start: 12-16-2021 End: 12-16-2021 ambulatory OMAR HOOD [facility] Start: 12-11-2021 End: 12-11-2021 ambulatory TOMASZ TORREZ [facility] Procedures Date Procedure Procedure Detail Performing Clinician Start: 06-16-[address] Liam Knowles MD Work Phone: Start: 02-25-2025 Vitamin D, 25-hydrox y measurement Dr. Mary Knowles MD Work Phone: Comment on above: Vitamin D StatusDefi ciency: <20 ng/mL (50nmol/L)Insufficiency: 20-30 ng/mL (50-75 nmol/L)Sufficiency: 30-100 ng/mL (75-250 nmol/L)Toxicity: >100 ng/mL (>250 nmol/L) Start: 07-03-2022 Adult depression scr eening assessment Nazanin Amin RD Plan of Treatment Date Care Activity Detail Author Start: 07-03-2032 Urine microalbumin profile DTA P,TDAP,TD (2 - Td or Tdap) [facility] Start: 06-16-2025 Patient discharge [facility] Start: 05-16-2025 Polysomnography [facility] Start: 04-26-2025 Patient referral [facility] Work Phone: Start: 07-03-2023 Adult depression scr eening assessment DEPRESSION SCREENING [facility] Start: 07-03-2023 COVID-19 VACCINE (#1) COVID-19 VACCINE (#1) [facility] Comment on above: Postponed from 04/19 (Declined at this time) Start: 07-03-2023 HEPATITIS B (1 of 3 - 3-dose series) HEPATITIS B (1 of 3 - 3-dose series) [facility] Comment on above: Postponed from 10/20 (Declined at this time) Start: 07-24-2022 Influenza vaccination INFLUENZA (#1) [facility] Patient referral [facility] Work Phone: Tobacco use cessatio n education [facility] Tobacco use cessatio n education [facility] Immunizations Immunization Date Immunization Notes Care Provider Irma morataya 07-03-2022 tetanus toxoid, reduced diphtheria toxoid, and acellular pertussis vaccine, adsorbed Nazanin Amin RD [facility] 12-18-2016 influenza, injectabl e, quadrivalent, preservative free Dr. Mary Knowles MD Work Phone: [facility] 12-18-2016 tetanus toxoid, reduced diphtheria toxoid, and acellular pertussis vaccine, adsorbed Dr. Mary Knowles MD Work Phone: [facility] Payers Date Payer Category Payer Self-pay [id number] 2024 Unknown [id number] 2022 Private Health Insurance [employer] A ETNA EPO [id number] 2022-Present [phone] [address] [place] [address] EPO [id number] 2022 Private Health Insurance [id number] Unknown [id number] Unknown [id number] 62 Unknown [id number] 62 Unknown [id number] 62 Unknown [id number] 62 Unknown [id number] 62 Unknown [id number] 62 Unknown [id number] 62 Unknown [id number] 62 Social History Date Type Detail Facility Start: 07-03-2022 Tobacco smoking stat NHIS Never smoked tobacco [facility] Work Phone: Start: 07-03-2022 Tobacco use and exposure Smoke less tobacco non-user [facility] Work Phone: Start: 07-03-2022 Alcohol intake Ex-drinker (finding) [facility] Start: 07-03-2022 History SDOH Alcohol Frequency 2 [facility] Start: 07-03-2022 History SDOH Alcohol Std Drinks 1 [facility] Start: 07-03-2022 History SDOH Social Connections Phone 5 [facility] Start: 07-03-2022 History SDOH Social Connections Alevism 98 [facility] Start: 07-03-2022 History SDOH Social Connections Living 3 [facility] Start: 07-03-2022 History SDOH Physica l Activity DPW 7 [facility] Start: 07-03-2022 History SDOH Physica l Activity MPS 15 [facility] Start: 1990 Sex Assigned At Not on file C [facility] Start: 06-17-2022 End: 06-27-2022 Exposure to SARS-CoV-2 (event) Not sure [facility] Start: 11-29-2024 End: 04-26-2025 Tobacco smoking status NHIS Smokes tobacco daily (finding) [facility] Start: 03-02-2025 Sex Male (finding) [facility] Start: 1990 Sex Assigned At Male W [facility] Mental Status Date Assessment Result Facility 06-16-2025 Cognitive function Awake;Alert;A ppropriate;Fol lows Commands [facility] Work Phone: Clinical Notes 07-03-2022 to 05-03-2025 Note Date & Type Note Facility 05-03-2025 Progress note [facility] 05-03-2025 Progress note Note Date/Time May 03, 2025 8:44am [facility] [address] [place], [place] [address] OFFICE VISIT Date of Service: 05/03/25 MR#: [id number] Acct: [id number] Name: GREGORY JEAN BAPTISTE Rep #: [id number] : 1990 Provider: Dr. Lisha Elmore MD Age/Sex: 34/M Location: [facility] Status: Signed Intake Vital Signs 04/26/25 08:37 05/03/25 08:25 Height 6 ft 1 in 6 ft 1 in Weight: 230 lb 231 lb BMI 30.3 30.4 BP 122/68 H 118/80 Blood Pressure Location Lt brachial Rt brachial Position Sitting Sitting Respiration 18 17 Pulse 102 H 76 Pulse Source Monitor Monitor Temp 97.8 F Temp Source Temporal Pulse Oximetry (%) 97 97 Oxygen Delivery Method room air room air Intake Visit Reasons: GERD/SMALL HIATAL HERNIA Chief Complaint: gerd/hiatal hernia Is patient in pain?: No Allergies No Known Allergies Allergy (Verified 05/03/25 08:25) Medications ?Medication ?Instructions ?Recorded ?Confirmed ?Type varenicline tartrate 0.5 mg (11)-1 See Rx Instructions PO PER PKG DIR 01/06/24 05/03/25 Rx mg (42) tablets in a dose pack #53 tabs (Chantix Starting Month Box) omeprazole 40 mg capsule,delayed 40 mg PO QDAY #30 cap s 04/26/25 05/03/25 Rx release sertraline 50 mg tablet 50 mg PO QDAY #30 tabs 04/2605/03/25 Rx PFSH Medical History Hiatal hernia Acid reflux Diarrhea Abdominal pain Anxiety Depression Surgical History H/O esophagogastroduodenoscopy H/O colonoscopy Hx of wisdom tooth extraction Family History Father Diabetes Heart disease s/p stents Hypertension Cancer multiple myeloma and leukemia Hyperlipidemia Uncle Heart disease Heart failure Brother Asperger syndrome Mother Dementia Social History (Updated 04/26/25 @ 08:[address] 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 [employer] pets and animals: Yes pets and animals: cat(s) and dog(s) Smoking Status: Current every day smoker tobacco type: e-cigarettes Tobacco: How many years used: 8 Electronic Cigarette Use: with nicotine how long ago did patient quit smokin-1.5 cartridges per day second hand exposure: No quit status: considering quitting alcohol intake: current alcohol intake frequency: holidays/special occasions only substance use type: does not use caffeine: Yes (13) Type: carbonated beverages and coffee what type of physical activity do you participate in: none frequency: does not exercise seatbelt use: always do you feel safe at home: Yes HPI HPI HPI: Patient is a 34-year-old male with the history of a small hiatal hernia. The patient reports that his GERD has gotten much worse and he is having some hoarseness. Patient reports severe reflux especially if eating anything acidic. ROS General General: Yes weight change and fatigue; No appetite, colon cancer, breast cancer or weakness HEENT HEENT: Yes difficulty swallowing; No eye injury, eye surgery, swollen glands or hoarseness Endo Endocrine: No thyroid disease, diabetes mellitus, thyroid cancer, Hair loss, heat intolerance or cold intolerance Skin Skin: No rash or changing moles Musc Musculoskeletal: Yes back problems; No arthritis, rheumatoid arthritis, gout or joint pain Cardio Cardiovascular: No murmur, pacemaker, heart disease, atrial fibrillation, high blood pressure, heart attack, heart stent, palpitations, shortness of breath with exertion or chest pain Psych Psychiatric: Yes anxiety; No depression or hearing voices Resp Respiratory: No shortness of breath, No sleep apnea, No cough, No COPD, No asthma, No emphysema and No wheezing Gastro Gastrointestinal: Yes abdominal pain, No nausea or vomiting, Yes diarrhea, No constipation, No blood in stool, Yes acid reflux, No hemorrhoids, No ulcers, No gallbladder problem and No black,tarry stools Gerald Hematologic: No blood thinners, No blood disorders, No bleeding, No anemia and No blood clots Neuro Neurologic: No system reviewed and no additional complaints, except as documented, No as per HPI, No abnormal gait, No abnormal hearing, No abnormal movements, No abnormal speech, No behavioral changes, No burning sensations, No confusion, No convulsions, No disequilibrium, No dizziness, No localized weakness, No frequent falls, No headache(s), No lack of coordination, No loss ofvision, No memory loss, Yes numbness, No other visual disturbances, No radicularpain, No restless legs, No sensory deficit, No syncope, No tingling, No tremor(s), No weakness and No other Exam Const General: cooperative Orientation: alert and oriented x3 HENMT Head: normal to inspection Neck Neck: normal visual inspection and full ROM Chest Chest palpation & inspection: normal inspection of the chest Resp Effort & Inspection: normal respiratory effort Auscultation: clear to auscultation bilaterally Cardio Rate: regular rate Rhythm: regular rhythm GI Inspection: non-distended Palpation: soft and nontender Skin General: no rashes or lesions noted Neuro General: patient alert and patient oriented x3 Extrem General: full ROM Psych Appearance: grossly normal Mental Status: mental status grossly normal Assessment and Plan Assessment and Plan (1) Acid reflux: Status: Acute Qualifiers: Esophagitis presence: esophagitis presence not specified Qualified Code(s): K21.9 - Gastro-esophageal reflux disease without esophagitis Plan: The patient seems to be having severe acid reflux. I discussed repeat EGD for evaluation since his last EGD was in 2018. I would like to repeat EGD with pH probe and evaluate the size of the hiatal hernia. I would also like to send himfor manometry. I explained endoscopy in detail to the patient. I explained the risks includingbut not limited to stroke or heart attack with anesthesia, perforation of the GItract, bleeding, infection. I explained that any of these could necessitate further emergency surgery. The patient understands and all questions were answered sufficiently. The patient wishes to proceed with procedure. Dewey Elmore MD Pager: [facility] [address] [place] [address], [address] [place] [address] Office: Orders: Orders EGD with 48 pH probe Today Coding Level of Care Code Off vis,new,level 3 Diagnoses Gastroesophageal reflux disease, unspecified whether esophagitis present K21.9 Esophagitis presence: esophagitis presence not specified 05/03/25 0844 <Electronically signed by Dewey murray MD> Date _ Dewey Elmore MD Cosigner Signature: Date (if applicable) CC: Dr. Mary Knowles MD ~ [facility] Work Phone: 1(410) 496-806404-23-2025 Evaluation note* Diagnosis Onset Date Resolution Status Admit Date Sleep difficulties noneactive March 15, 2025 9:05am Erectile dysfunction noneactive Apri l 2024 9:05am Severe anxiety noneactive February 9:05am Electronic cigarette use noneactive March 15, 2025 9:05am Seasonal allergies noneactive March 15, 2025 9:05am Chronic abdominal pain noneactive Ap ril 2024 9:05am Chronic right-sided low back pain without sciatica noneactive February 9:05am Vitamin d deficiency noneactive Apri l 2024 9:05am Moderately severe depression noneact adelia March 15, 2025 9:05am Acid reflux acute April 26 8:33am Erectile dysfunction noneactive April 26, 2025 8:33am Severe anxiety noneactive April 26, 2025 8:33am Electronic cigarette use noneactive April 26, 2025 8:33am Suspected sleep apnea noneactive Apr 8:33am Chronic right-sided low back pain without sciatica noneactive April 26, 2025 8:33am Vitamin d deficiency noneactive April 26, 2025 8:33am Moderately severe depression noneact adelia April 26, 2025 8:33am Acid reflux acute May 03 8:11am [facility] Work Phone: 1(401) 876-277404-23-2025 Evaluation note* Diagnosis Onset Date Resolution Status Admit Date Sleep difficulties noneactive March 15, 2025 9:05am Erectile dysfunction noneactive Apri l 2024 9:05am Severe anxiety noneactive February 9:05am Electronic cigarette use noneactive March 15, 2025 9:05am Seasonal allergies noneactive March 15, 2025 9:05am Chronic abdominal pain noneactive Ap ril 2024 9:05am Chronic right-sided low back pain without sciatica noneactive February 9:05am Vitamin d deficiency noneactive Apri l 2024 9:05am Moderately severe depression noneact adelia March 15, 2025 9:05am Acid reflux acute April 26 8:33am Sleep difficulties noneactive April 262024 8:33am Erectile dysfunction noneactive April 26, 2025 8:33am Severe anxiety noneactive April 26, 2025 8:33am Electronic cigarette use noneactive April 26, 2025 8:33am Chronic abdominal pain noneactive 2024 8:33am Suspected sleep apnea noneactive Apr 8:33am Chronic right-sided low back pain without sciatica noneactive April 26, 2025 8:33am Vitamin d deficiency noneactive April 26, 2025 8:33am Moderately severe depression noneact adelia April 26, 2025 8:33am [facility] Work Phone: 1(323) 226-676101-07-2025 Evaluation note* Diagnosis Onset Date Resolution Status Admit Date Sleep walking noneactive November 11:31am Influenza vaccination declined noneactive November 29 11:31am Erectile dysfunction noneactive 2024 11:31am Severe anxiety noneactive November 11:31am Electronic cigarette use noneactive November 29, 2024 11:31am Chronic abdominal pain noneactive [facility] 2024 11:31am Vitamin d deficiency noneactive 2024 11:31am Moderately severe depression noneact adelia November 29, 2024 11:31am [facility] Work Phone: 1(994) 728-864909-22-2022 Instructions* Patient Instructions* Nazanin Amin, RD - 08/14/2022 1:15 PM EDT Continue Mediterranean style eating All meals and snacks at the dinner table; minimize distractions, no TV while eating. Make meals last at least 20 min, chew each bite of food 20 x per bite.Portion out all foods, never eat out of container. Become more mindful of meal: Enjoy flavors, textures etc. Use hunger/fullness scale. Work on adding in exercise, at least 30 min cardio most days, use play time with kids for weight resistance If want to consider tracking intake aim for ~2000 calories [facility] NoteHNO ID: [id number] Author: Nazanin Amin RD Service: ? Author Type: Registered Dietitian Type: Progress Notes Filed: 08/14/2022 1:16 PM Note Text: [facility] Nutrition Therapy: Virtual Consult - Re-assessment This visit was performed virtually due to the COVID-19 epidemic as an effort to protect patients and minimize exposure. Consent from patient received to conduct visit virtually. This Team Access Model visit is a virtual encounter. It required patient-provider interaction for the medical decision making as documented below. PROGRESS: Nutrition Intervention (date of last encounter 07/07/22): Folllow Mediteranean style eating. Consume whole grains (whole grain breads/cereals, oatmeal, barley, popcorn). [id number]+ grams of fiber per day. Consume fresh/frozen fruit and vegetables (blueberries, nectarines, raspberries, apples, apricots, figs, prunes, dark leafy greens) Include a variety of deep colors) Consume lean protein (chicken, turkey breast, fish. Avoid eating red meats more than twice per month if at all. Aim for cheese and meats with 3 grams of fat or less per ounce. Dairy sources primarly low fat/nonfat yogurt and cheese. Use low fat cooking methods such as baking, broiling, roasted, and grilled Use healthy fats such as primarily olive oil, flaxseed oil, walnuts, almonds, pecans, olives and avocado but in limited amounts. Increase foods rich in omega-3 fatty acids (salmon, tuna, zuniga, sardines, maria del rosario) Aim for a small serving daily of Almonds/walnuts and ground flaxseed/jesus seeds (2 Tablespoons/day), seeds Read food labels. Avoid products made with partially hydrogenated fats/oils. Include a variety of spices and herbs daily (oregano, carloz, tumeric, gonzalez, garlic, etc) Aim for 7 hours sleep Add in regular exercise, aim for at least 30 min cardio most days and weight resistance 2-3 x per week; do core exercise daily Consider orthopedic eval for back CHANGES IN TREATMENT: Patient met goal(s): Partially Actions to implement interventions: Breakfast: Barbadian yogurt with honey with walnuts or fruit or oatmeal; 2-3 coffee with vanilla creamer Sn: veg in hummus Lunch: left overs Sn: G janet chips in hummus Dinner: feng feng with rice, veg, salads; salmon with squash Red meat 6-7 x ~5 K steps CLINICAL IMPRESSIONS: good ANTHROPOMETRICS Height per patient: 72? Weight per patient: 214# Most recent height and weight per EPIC Height: Last 1 Encounter Ht Readings: Date: Ht: 08/14/2022 182.9 cm (6') Weight: Last 1 Encounter Wt Readings: Date: Wt: 08/14/2022 97.3 kg (214 lb 6.4 oz) Body mass index is 29.08 kg/m?. Resting Metabolic Rate: 1962 Malnutrition Screening Significant unintentional weight loss? No Eating less than 75% of usual intake for more than 2 weeks? No Potential Signs of Inflammation: no identifiable sources Nutritional status: RECOMMENDED MALNUTRITION DIAGNOSIS: NO MALNUTRITION IDENTIFIED Educational materials provided: None this visit Patient presents for follow up nutrition irtual Consult. Following as relates to overweight BMI with a family history of heart disease. Wants to make changes to be healthier. Heart healthy, Mediterranean diet previously discussed, patient is working on changes, its a big change and adjusting slowly. Works long hours for job, limited time for exercise or sleep after family time. Weight slight increase from last visit. No regular exercise included. Nutrition Diagnosis: Behavioral-Environmental: Food and nutrition related knowledge deficit, related to, lack of prior exposure to information , as evidenced by change in existing diagnosis or condition. Nutrition Intervention 08/14/2022: Modify type and amount of food consumed for meals and snacks: Continue Mediterranean style eating All meals and snacks at the dinner table; minimize distractions, no TV while eating. Make meals last at least 20 min, chew each bite of food 20 x per bite.Portion out all foods, never eat out of container. Become more mindful of meal: Enjoy flavors, textures etc. Use hunger/fullness scale. Work on adding in exercise, at least 30 min cardio most days, use play time with kids for weight resistance If want to consider tracking intake aim for ~2000 calories Nutrition Monitoring AND Evaluation: heart healthy diet, gradual weight loss Criteria: patient update Need for Follow up: 4-6 weeks MNT Billing Type: Re-assess/15 min 3 units Signed by: Nazanin Amin RD[facility] History of Present illness Narrative* Nazanin Amin RD - 08/14/2022 9:38 AM EDT [facility] Nutrition Therapy: Virtual Consult - Re-assessment This visit was performed virtually due to the COVID-19 epidemic as an effort to protect patients and minimize exposure. Consent from patient received to conduct visit virtually. This Team Access Model visit is a virtual encounter. It required patient-provider interaction for the medical decision making as documented below. PROGRESS: Nutrition Intervention (date of last encounter 07/07/22): Folllow Mediteranean style eating. Consume whole grains (whole grain breads/cereals, oatmeal, barley, popcorn). Eunknhg81+ grams of fiber per day. Consume fresh/frozen fruit and vegetables (blueberries, nectarines, raspberries, apples, apricots, figs, prunes, dark leafy greens) Include a variety of deep colors) Consume lean protein (chicken, turkey breast, fish. Avoid eating red meats more than twice per month if at all. Aim for cheese and meats with 3 grams of fat or less per ounce. Dairy sources primarly low fat/nonfat yogurt and cheese. Use low fat cooking methods such as baking, broiling, roasted, and grilled Use healthy fats such as primarily olive oil, flaxseed oil, walnuts, almonds, pecans, olives and avocado but in limited amounts. Increase foods rich in omega-3 fatty acids (salmon, tuna, zuniga, sardines, maria del rosario) Aim for a small serving daily of Almonds/walnuts and ground flaxseed/jesus seeds (2 Tablespoons/day), seeds Read food labels. Avoid products made with partially hydrogenated fats/oils. Include a variety of spices and herbs daily (oregano, carloz, tumeric, gonzalez, garlic, etc) Aim for 7 hours sleep Add in regular exercise, aim for at least 30 min cardio most days and weight resistance 2-3 x per week; do core exercise daily Consider orthopedic eval for back CHANGES IN TREATMENT: Patient met goal(s): Partially Actions to implement interventions: Breakfast: Barbadian yogurt with honey with walnuts or fruit or oatmeal; 2-3 coffee with vanilla creamer Sn: veg in hummus Lunch: left overs Sn: G janet chips in hummus Dinner: feng feng with rice, veg, salads; salmon with squash Red meat 6-7 x ~5 K steps CLINICAL IMPRESSIONS: good ANTHROPOMETRICS Height per patient: 72 Weight per patient: 214# Most recent height and weight per EPIC Height: Last 1 Encounter Ht Readings: Date: Ht: 08/14/2022 182.9 cm (6') Weight: Last 1 Encounter Wt Readings: Date: Wt: 08/14/2022 97.3 kg (214 lb 6.4 oz) Body mass index is 29.08 kg/m . Resting Metabolic Rate: 1962 Malnutrition Screening Significant unintentional weight loss? No Eating less than 75% of usual intake for more than 2 weeks? No Potential Signs of Inflammation: no identifiable sources Nutritional status: RECOMMENDED MALNUTRITION DIAGNOSIS: NO MALNUTRITION IDENTIFIED Educational materials provided: None this visit Patient presents for follow up nutrition irtual Consult. Following as relates to overweight BMI with a family history of heart disease. Wants to make changes to be healthier. Heart healthy, Mediterranean diet previously discussed, patient is working on changes, its a big change and adjusting slowly. Works long hours for job, limited time for exercise or sleep after family time. Weight slight increase from last visit. No regular exercise included. Nutrition Diagnosis: Behavioral-Environmental: Food and nutrition related knowledge deficit, related to, lack of prior exposure to information , as evidenced by change in existing diagnosis or condition. Nutrition Intervention 08/14/2022: Modify type and amount of food consumed for meals and snacks: Continue Mediterranean style eating All meals and snacks at the dinner table; minimize distractions, no TV while eating. Make meals last at least 20 min, chew each bite of food 20 x per bite.Portion out all foods, never eat out of container. Become more mindful of meal: Enjoy flavors, textures etc. Use hunger/fullness scale. Work on adding in exercise, at least 30 min cardio most days, use play time with kids for weight resistance If want to consider tracking intake aim for ~2000 calories Nutrition Monitoring & Evaluation: heart healthy diet, gradual weight loss Criteria: patient update Need for Follow up: 4-6 weeks MNT Billing Type: Re-assess/15 min 3 units Signed by: Nazanin Amin RD [facility] NoteEducation (NUTRSHARI) GREGORY JEAN BAPTISTE ([id number]) 1990 M Date Time Provider Department 07/07/22 8:45 AM NAZANIN AMIN Reason for Visit: Assessment [673] Patient Education [91] Primary Visit Diagnosis:Dietary counseling [Z71.3] Other Visit Diagnoses:Overweight (BMI 25.0-29.9) [E66.3] Family history of heart disease in male family member before age 55 [Z82.49] Order(s):CONSULT TO NUTRITION THERAPY [9026] Order #: [id number]: 1 During your visit today, we recorded the following information about you: Weight Height 96.2 kg 1.829 m Allergies As of Date: 07/07/2022 (No Known Allergies) Date Reviewed: 07/07/2022 Reviewed by: Nazanin Amin RD - Fully Assessed Prescriptions as of 07/07/2022 - naproxen sodium (ALEVE) 220 mg tablet Takes as needed Encounter Status:Closed by NAZANIN AMIN on 07/07/22[facility]08-[facility] NoteHNO ID: [id number] Author: Nazanin Amin RD Service: ? Author Type: Registered Dietitian Type: Progress Notes Filed: 07/07/2022 2:27 PM Note Text: Nutrition Therapy Initial Assessment Nutrition Diagnosis: Behavioral-Environmental: Food and nutrition related knowledge deficit, related to, lack of prior exposure to information , as evidenced by change in existing diagnosis or condition. RECOMMENDED MALNUTRITION DIAGNOSIS: NO MALNUTRITION IDENTIFIED NUTRITION CARE PLAN Nutrition Intervention 07/07/2022: comprehensive nutrition education Folllow Mediteranean style eating. Consume whole grains (whole grain breads/cereals, oatmeal, barley, popcorn). Krbeuit74+ grams of fiber per day. Consume fresh/frozen fruit and vegetables (blueberries, nectarines, raspberries, apples, apricots, figs, prunes, dark leafy greens) Include a variety of deep colors) Consume lean protein (chicken, turkey breast, fish. Avoid eating red meats more than twice per month if at all. Aim for cheese and meats with 3 grams of fat or less per ounce. Dairy sources primarly low fat/nonfat yogurt and cheese. Use low fat cooking methods such as baking, broiling, roasted, and grilled Use healthy fats such as primarily olive oil, flaxseed oil, walnuts, almonds, pecans, olives and avocado but in limited amounts. Increase foods rich in omega-3 fatty acids (salmon, tuna, zuniga, sardines, maria del rosario) Aim for a small serving daily of Almonds/walnuts and ground flaxseed/jesus seeds (2 Tablespoons/day), seeds Read food labels. Avoid products made with partially hydrogenated fats/oils. Include a variety of spices and herbs daily (oregano, carloz, tumeric, gonzalez, garlic, etc) Aim for 7 hours sleep Add in regular exercise, aim for at least 30 min cardio most days and weight resistance 2-3 x per week; do core exercise daily Consider orthopedic eval for back Nutrition Monitoring AND Evaluation: heart healthy diet Need for Follow up: 4-6 weeks Patient presents for initial MNT as relates to overweight BMI, family history heart disease. Wants to make changes to be healthier. Also desires to be leaner. Currently no exercise, had been exercising but stopped because felt like no success. Tends towards extreme attempts: low calorie vs high caloire, very high protein intake and high exercise. Typical limited sleep with work schedule and . Diet high in fat and saturated fat. Limited produce and whole grains. Patient's symptoms are: None Diet History: Breakfast - skip or eggs,sausage, bagel, coffee witth cream Snack - not usually Lunch - left overs Snack - no Dinner - spaghetti, ground meat, meat loaf, grilled hamburgers, brats, hot dogs; diet Pepsi Snack - occ some yogurt Beverages - diet Pepsi, diet green tea, coffee with cream Alcohol- not usually Vitamins/Supplements - MVI, calcium, magnesium, vit C, B2, L arginine [id number] - chicken, eggs, and rice and broccolli Pain in spine Activity: Activities of Daily Living: varies Additional Activity: Sedentary (Little or no exercise: <1x/week) No exercise (7 wk old and 1 yr old); Anthropometrics: Height: Last 1 Encounter Ht Readings: Date: Ht: 07/07/2022 182.9 cm (6') Current weight: Last 1 Encounter Wt Readings: Date: Wt: 07/07/2022 96.2 kg (212 lb 2.4 oz) Body mass index is 28.77 kg/m?. Resting Metabolic Rate: 1952 Malnutrition Screening Significant unintentional weight loss? No Eating less than 75% of usual intake for more than 2 weeks? No Potential Signs of Inflammation: no identifiable sources Education Materials Provided: Healthy Eating for a Low Saturated Fat, Low Cholesterol Diet, Mediterranean Diet, and Plant Sources of [place]-3 FA, Improving Health with Fiber, and Healthy Lunch/Dinner Plate READINESS TO LEARN Cognitive ability: Alert and oriented Motivation to learn: Interested Family support: Unable to assess - Family not present Instruction provided to: Patient Patient learns best by: Individual Instruction Factors affecting learning: None Physical limitations affecting learning: None Referred/Supervised by: Brad/Cara MNT Billing Type: Initial Assess/15 min 3 units SIGNATURE: Nazanin Amin RD PATIENT NAME: Gregory Jean Baptiste DATE: July 07, 2022 TIME: 8:46 [facility] Instructions* Patient Instructions* Nazanin Amin RD - 07/07/2022 9:27 AM EDT Folllow Mediteranean style eating. Consume whole grains (whole grain breads/cereals, oatmeal, barley, popcorn). [id number]+ grams of fiber per day. Consume fresh/frozen fruit and vegetables (blueberries, nectarines, raspberries, apples, apricots, figs, prunes, dark leafy greens) Include a variety of deep colors) Consume lean protein (chicken, turkey breast, fish. Avoid eating red meats more than twice per month if at all. Aim for cheese and meats with 3 grams of fat or less per ounce. Dairy sources primarly low fat/nonfat yogurt and cheese. Use low fat cooking methods such as baking, broiling, roasted, and grilled Use healthy fats such as primarily olive oil, flaxseed oil, walnuts, almonds, pecans, olives and avocado but in limited amounts. Increase foods rich in omega-3 fatty acids (salmon, tuna, zuniga, sardines, maria del rosario) Aim for a small serving daily of Almonds/walnuts and ground flaxseed/jesus seeds (2 Tablespoons/day), seeds Read food labels. Avoid products made with partially hydrogenated fats/oils. Include a variety of spices and herbs daily (oregano, carloz, tumeric, gonzalez, garlic, etc) Aim for 7 hours sleep Add in regular exercise, aim for at least 30 min cardio most days and weight resistance 2-3 x per week; do core exercise daily Consider orthopedic eval for back [facility] History of Present illness Narrative* Nazanin Amin RD - 07/07/2022 8:43 AM EDT Nutrition Therapy Initial Assessment Nutrition Diagnosis: Behavioral-Environmental: Food and nutrition related knowledge deficit, related to, lack of prior exposure to information , as evidenced by change in existing diagnosis or condition. RECOMMENDED MALNUTRITION DIAGNOSIS: NO MALNUTRITION IDENTIFIED NUTRITION CARE PLAN Nutrition Intervention 07/07/2022: comprehensive [facility] Mediter[facility] style eating. Consume whole grains (whole grain breads/cereals, oatmeal, barley, popcorn). [id number]+ grams of fiber per day. Consume fresh/frozen fruit and vegetables (blueberries, nectarines, raspberries, apples, apricots, figs, prunes, dark leafy greens) Include a variety of deep colors) Consume lean protein (chicken, turkey breast, fish. Avoid eating red meats more than twice per month if at all. Aim for cheese and meats with 3 grams of fat or less per ounce. Dairy sources primarly low fat/nonfat yogurt and cheese. Use low fat cooking methods such as baking, broiling, roasted, and grilled Use healthy fats such as primarily olive oil, flaxseed oil, walnuts, almonds, pecans, olives and avocado but in limited amounts. Increase foods rich in omega-3 fatty acids (salmon, tuna, zuniga, sardines, maria del rosario) Aim for a small serving daily of Almonds/walnuts and ground flaxseed/jesus seeds (2 Tablespoons/day), seeds Read food labels. Avoid products made with partially hydrogenated fats/oils. Include a variety of spices and herbs daily (oregano, carloz, tumeric, gonzalez, garlic, etc) Aim for 7 hours sleep Add in regular exercise, aim for at least 30 min cardio most days and weight resistance 2-3 x per week; do core exercise daily Consider orthopedic eval for back Nutrition Monitoring & Evaluation: heart healthy diet Need for Follow up: 4-6 weeks Patient presents for initial MNT as relates to overweight BMI, family history heart disease. Wants to make changes to be healthier. Also desires to be leaner. Currently no exercise, had been exercising but stopped because felt like no success. Tends towards extreme attempts: low calorie vs high caloire, very high protein intake and high exercise. Typical limited sleep with work schedule and . Diet high in fat and saturated fat. Limited produce and whole grains. Patient's symptoms are: None Diet History: Breakfast - skip or eggs,sausage, bagel, coffee witth cream Snack - not usually Lunch - left overs Snack - no Dinner - spaghetti, ground meat, meat loaf, grilled hamburgers, brats, hot dogs; diet Pepsi Snack - occ some yogurt Beverages - diet Pepsi, diet green tea, coffee with cream Alcohol- not usually Vitamins/Supplements - MVI, calcium, magnesium, vit C, B2, L arginine [phone] - chicken, eggs, and rice and broccolli Pain in spine Activity: Activities of Daily Living: varies Additional Activity: Sedentary (Little or no exercise: <1x/week) No exercise (7 wk old and 1 yr old); Anthropometrics: Height: Last 1 Encounter Ht Readings: Date: Ht: 07/07/2022 182.9 cm (6') Current weight: Last 1 Encounter Wt Readings: Date: Wt: 07/07/2022 96.2 kg (212 lb 2.4 oz) Body mass index is 28.77 kg/m . Resting Metabolic Rate: 1951 Malnutrition Screening Significant unintentional weight loss? No Eating less than 75% of usual intake for more than 2 weeks? No Potential Signs of Inflammation: no identifiable sources Education Materials Provided: Healthy Eating for a Low Saturated Fat, Low Cholesterol Diet, Mediterranean Diet, and Plant Sources of [place]-3 FA, Improving Health with Fiber, and Healthy Lunch/Dinner Plate READINESS TO LEARN Cognitive ability: Alert and oriented Motivation to learn: Interested Family support: Unable to assess - Family not present Instruction provided to: Patient Patient learns best by: Individual Instruction Factors affecting learning: None Physical limitations affecting learning: None Referred/Supervised by: Brad/Cara TAMAYO Billing Type: Initial Assess/15 min 3 units SIGNATURE: Nazanin Amin RD PATIENT NAME: Gregory Diana Markel DATE: July 07, 2022 TIME: 8:46 AM documented in [facility]22 NoteHNO ID: [id number] Author: Clarissa Morin APRN.CNP Service: ? Author Type: Nurse Practitioner Type: Progress Notes Filed: 07/03/2022 11:36 AM Note Text: CC: Patient presents with: Establish Care HPI Gregory Jean Baptiste is a 31 year old male who presents today for above. Exercise: denies regular aerobic exercise. Stays very active at work, walks a lot. Averages 16 miles a day. Diet: Watches diet for salt (salty snacks, added salt, processed frozen/canned foods), sugary/sweet snacks, unhealthy fats: No REVIEW OF SYSTEMS General: no fevers, no chills, no night sweats, no change in appetite, no change in energy, and no significant changes in weight HEENT: no frequent or significant headaches, no changes in hearing, no visual changes Respiratory: no cough, no wheezing, no shortness of breath Cardiovascular: no chest pain, no chest pressure, no palpitations, no swelling, and no decrease in exercise tolerance GI: Negative for abdominal discomfort, blood in stools or black stools, change in bowel habit, heart burn, nausea, vomiting : No difficulty urinating, nocturia > 1 time per night or hematuria Musculoskeletal: Negative for joint pain or swelling, back pain or muscle pain Skin: Negative for lesions, rash, and itching Psych: Negative for sleep disturbance, mood disorder and recent psychosocial stressors History reviewed. No pertinent past medical history. PAST SURGICAL HISTORY Procedure Laterality Date PAST SURGICAL HISTORY OF 2021 penile silicone implant ALLERGIES Patient has no known allergies. MEDICATIONS naproxen sodium (ALEVE) 220 mg tablet Takes as needed FAMILY HISTORY Problem Relation Age of Onset Hyperlipidemia Mother Hypertension Mother Heart Mother arrhythmia Diabetes Father Blood Disease Father multiple myeloma Hypertension Father Hyperlipidemia Father Osteoporosis Father Coronary Artery Disease Father Liver Disease Father No Known Problems Maternal Grandmother Heart Attack Maternal Grandfather at age 43 No Known Problems Paternal Grandmother Cancer Paternal Grandfather stomach Liver Disease Paternal Grandfather liver failure No Known Problems Half-brother Obesity Half-sister Hypertension Half-sister No Known Problems Daughter No Known Problems Son PHYSICAL EXAM BP 116/64 Pulse 74 Resp 16 Ht 182.9 cm (6') Wt 95.7 kg (211 lb) BMI 28.62 kg/m? General Appearance: well appearing, in no acute distress, alert Pysch: mood and affect broad and appropriate Skin: Skin color, texture, turgor normal for age; Eyes: conjunctiva pink and moist, no icterus, sclera white, non-injected Neck: Thyroid normal size and symmetric without palpable nodules, Neck supple, No adenopathy Lymph nodes: No supraclavicular lymphadenopathy Lungs: Lungs clear to auscultation. No wheezing, rhonchi, rales. Heart: RRR without murmur, gallop, or rubs. No ectopy Ext: no edema in LE bilaterally, good distal pulses Health maintenance reviewed with patient: HEPATITIS B(1 of 3 - 3-dose series) Never done HEPATITIS C SCREENING Never done HIV SCREENING Never done DTAP,TDAP,TD(1 - Tdap) Never done COVID-19 VACCINE(1) due on 07/03/2023 INFLUENZA(1) due on 07/24/2022 DEPRESSION SCREENING due on 07/03/2023 ASSESSMENT/PLAN: 1. Wellness examination - ICD9: V70.0, ICD10: Z00.00 (primary diagnosis) - Counseled on healthy diet and regular exercise - Discussed need for and benefit of weight loss. BMI 28.62 kg/(m2) - Smoking cessation encouraged; discussed risks to health and quitting strategies. Patient is not ready to quit - Depression screening tool completed and reviewed with patient. Based on score and interview, patient is not at risk for depression and recommended no further intervention at this time. - Patient was counseled [id number] by myself (the billing provider) for the following immunizations and vaccine components, including side effects: TdaP. Patient consents for immunization and understands risks and benefits. A VIS sheet on each immunization was given to the patient. - Follow up for annual exam in one year - LIPID PANEL BASIC - COMP METABOLIC PANEL 2. Overweight (BMI 25.0-29.9) - ICD9: 278.02, ICD10: E66.3 Weight increasing - CONSULT TO NUTRITION THERAPY per patient request 3. Family history of heart disease in male family member before age 55 - ICD9: V17.49, ICD10: Z82.49 - CONSULT TO NUTRITION THERAPY 4. Encounter for immunization - ICD9: V03.89, ICD10: Z23 - TDAP VACCINE AGE 7+ IM Prescription instructions reviewed with patient as applicable. Potential red flag symptoms discussed with the patient. Reviewed appropriate action plan to take if red flag symptoms occur. Patient agreeable to treatment plan. Clarissa Morin, ELEVATOR EXAMINER AND ADJUSTER.CNPOhio Valley HospitalEvaluation note* Diagnosis Dietary counseling- Primary Dietary surveillance and counseling Overweight (BMI 25.0-29.9) Overweight Family history of heart disease in male family member before age 55 Family history of other cardiovascular diseases [facility]* Diagnosis Overweight- Primary Dietary counseling Dietary surveillance and counseling documented in this encounter [facility] Discharge instructionsAmbulatory Orders* General Surgery Location: None Selected [facility] Work Phone: Reason for referral (narrative)No reason for referral information availableWAultman Or[facility] Work Phone: Summary Purpose Family History No Family History Records Found Relationship Condition Age at Onset Recorded Date/T rosario father Diabetes mellitus Unknown Cardiac disease Unknown Hypertension Unknown Malignant neoplasm Unknown Hyperlipidemia Unknown uncle Cardiac disease Unknown Heart failure Unknown brother Asperger's disorder Unknown Relationship Condition Age at Onset Recorded Date/T rosario father Diabetes mellitus Unknown Cardiac disease Unknown Hypertension Unknown Malignant neoplasm Unknown Hyperlipidemia Unknown uncle Cardiac disease Unknown Heart failure Unknown brother Asperger's disorder Unknown mother Dementia Unknown Advance Directives No Advanced Directives Records FoundNo Advanced Directives Records FoundNo Advanced Directives Records Found Chief Complaint and Reason for Visit Chief Complaint Admit Date med fu November 29, 2024 11 :31am INT LAB ORDER February 25, 2025 8:22 am Reason for Visit Admit Date Sleep walking November 29, 2024 11 :31am Influenza vaccination declined November 292024 11:31am Erectile dysfunction November 29, 2024 1 1:31am Severe anxiety November 29, 2024 11 :31am Electronic cigarette use November 29 11:31am Chronic abdominal pain November 29, 2024 11:31am Vitamin d deficiency November 29, 2024 1 1:31am Moderately severe depression November 11:31am Chief Complaint Admit Date INT LAB ORDER February 25, 2025 8:22 am FOLLOW UP March 15, 2025 9:0 5am 6 wk FU April 26, 2025 8:33a m GERD/SMALL HIATAL HERNIA May 03, 2025 8:11am Reason for Visit Admit Date Sleep difficulties March 15, 2025 9:0 5am Erectile dysfunction March 15, 2025 9: 05am Severe anxiety March 15, 2025 9:0 5am Electronic cigarette use March 15 9:05am Seasonal allergies March 15, 2025 9:0 5am Chronic abdominal pain March 15, 2025 9:05am Chronic right-sided low back pain withou t sciatica March 15, 2025 9:05am Vitamin d deficiency March 15, 2025 9: 05am Moderately severe depression March 15, 2025 9:05am Acid reflux April 26, 2025 8:33a m Erectile dysfunction April 26, 2025 8:33 am Severe anxiety April 26, 2025 8:33a m Electronic cigarette use April 26, 2025 8:33am Suspected sleep apnea April 26, 2025 8:3 3am Chronic right-sided low back pain withou t sciatica April 26, 2025 8:33am Vitamin d deficiency April 26, 2025 8:33 am Moderately severe depression April 26, 025 8:33am Acid reflux May 03, 2025 8:11 am Chief Complaint Admit Date INT LAB ORDER February 25, 2025 8:22 am FOLLOW UP March 15, 2025 9:0 5am 6 wk FU April 26, 2025 8:33a m Reason for Visit Admit Date Sleep difficulties March 15, 2025 9:0 5am Erectile dysfunction March 15, 2025 9: 05am Severe anxiety March 15, 2025 9:0 5am Electronic cigarette use March 15 9:05am Seasonal allergies March 15, 2025 9:0 5am Chronic abdominal pain March 15, 2025 9:05am Chronic right-sided low back pain withou t sciatica March 15, 2025 9:05am Vitamin d deficiency March 15, 2025 9: 05am Moderately severe depression March 15, 2025 9:05am Acid reflux April 26, 2025 8:33a m Sleep difficulties April 26, 2025 8:33a m Erectile dysfunction April 26, 2025 8:33 am Severe anxiety April 26, 2025 8:33a m Electronic cigarette use April 26, 2025 8:33am Chronic abdominal pain April 26, 2025 8: 33am Suspected sleep apnea April 26, 2025 8:3 3am Chronic right-sided low back pain withou t sciatica April 26, 2025 8:33am Vitamin d deficiency April 26, 2025 8:33 am Moderately severe depression April 26 025 8:33am Additional Source Comments (unrecognized sect ion and content) No Status Records FoundNo Status Records FoundNo Status Records Found INFORMATION SOURCE (unrecogn ized section and content) DATE CREATED AUTHOR 12/17/2021 Luiz Lopez [facility] DATE CREATED AUTHOR AUTHOR'S ORGANIZ ATION 09/25/2022 [facility] DATE CREATED AUTHOR AUTHOR'S ORGANIZ ATION 07/15/2025 [facility] Source Comments (unrecognize d section and content) In the event this informatio n is protected by the Federal Confidentiality of Alcohol and Drug Abuse Patient Records regulations: The Federal rules restrict any use of the information to criminally investigate or prosecute any alcohol or drug abuse patient.[facility] the event this information is protected by the Federal Confidentiality of Alcohol and Drug Abuse Patient Records regulations: The Federal rules restrict any use of the information to criminally investigate or prosecute any alcohol or drug abuse patient.[facility] Reason for Visit (unrecogniz ed section and content) Reason Comments Assessment Patient Education Specialty Diagnoses / Procedures Referred By Controsy t Referred To Contact Nutrition Diagnoses Overweight (BMI 25.0-29.9) Family history of heart disease in male family member before age 55 Procedures CONSULT TO NUTRITION THERAPY OFFICE/OUTPATIENT NEW HIGH [facility] 60-74 MINUTES Older, Clarissa, [employer]LEV[employer] [address] [place] [address] Referral ID Status Reason Start Date Expiration Date Visits Requested Visits Authorized [id number] Pending Review PCP Requested Referral 07/03/2022 07/03/2023 1 1 Reason Comments Patient Education Reassessment Care Teams (unrecognized sec tion and content) Team Status: Active Member Role Status Dates Dr. Omar Hood MD Family Provider Active Dr. Mary Knowles MD Primary Care Provider Active Team Status: Inactive Member Role Status Dates Dr. Mary Knowles MD Primary Care Provider Active Start: November 29, 2024 End: November 29, 2024 Dr. Mary Knowles MD Attending Provider Active Start: November 29, 2024 End: November 29, 2024 Dr. Mary Knowles MD Referring Provider Active Start: November 29, 2024 End: November 29, 2024 Team Status: Inactive Member Role Status Dates Dr. Mary Knowles MD Primary Care Provider Active Start: February 25, 2025 End: February 25, 2025 Dr. Mary Knowles MD Attending Provider Active Start: February 25, 2025 End: February 25, 2025 Dr. Mary Knowles MD Referring Provider Active Start: February 25, 2025 End: February 25, 2025 Team Status: Active Member Role Status Dates Dr. Mary Knowles MD Primary Care Provider Active Team Status: Inactive Member Role Status Dates Dr. Mary Knowles MD Primary Care Provider Active Start: March 15, 2025 End: March 15, 2025 Dr. Mary Knowles MD Attending Provider Active Start: March 15, 2025 End: March 15, 2025 Dr. Mary Knowles MD Referring Provider Active Start: March 15, 2025 End: March 15, 2025 Team Status: Inactive Member Role Status Dates Dr. Mary Knowles MD Primary Care Provider Active Start: April 26, 2025 End: April 26, 2025 Dr. Mary Knowles MD Attending Provider Active Start: April 26, 2025 End: April 26, 2025 Dr. Mary Knowles MD Referring Provider Active Start: April 26, 2025 End: April 26, 2025 Team Status: Inactive Member Role Status Dates Dr. Mary Knowles MD Primary Care Provider Active Start: May 03, 2025 End: May 03, 2025 Dr. Mary Knowles MD Referring Provider Active Start: May 03, 2025 End: May 03, 2025 Dr. Dewey Elmore MD Attending Provider Active Start: May 03, 2025 End: May 03, 2025 Team Status: Active Member Role/Relationship Status Dates Dr. Mary Knowles MD Primary Care Provider Active Team Status: Inactive Member Role/Relationship Status Dates Dr. Mary Knowles MD Primary Care Provider Active Start: February 25, 2025 End: February 25, 2025 Dr. Mary Knowles MD Attending Provider Active Start: February 25, 2025 End: February 25, 2025 Dr. Mary Knowles MD Referring Provider Active Start: February 25, 2025 End: February 25, 2025 Team Status: Inactive Member Role/Relationship Status Dates Dr. Mary Knowles MD Primary Care Provider Active Start: March 15, 2025 End: March 15, 2025 Dr. Mary Knowles MD Attending Provider Active Start: March 15, 2025 End: March 15, 2025 Dr. Mary Knowles MD Referring Provider Active Start: March 15, 2025 End: March 15, 2025 Team Status: Inactive Member Role/Relationship Status Dates Dr. Mary Knowles MD Primary Care Provider Active Start: April 26, 2025 End: April 26, 2025 Dr. Mary Knowles MD Attending Provider Active Start: April 26, 2025 End: April 26, 2025 Dr. Mary Knowles MD Referring Provider Active Start: April 26, 2025 End: April 26, 2025 Team Status: Inactive Member Role/Relationship Status Dates Dr. Mary Knowles MD Primary Care Provider Active Start: May 03, 2025 End: May 03, 2025 Dr. Mary Knowles MD Referring Provider Active Start: May 03, 2025 End: May 03, 2025 Dr. Dewey Elmore MD Attending Provider Active Start: May 03, 2025 End: May 03, 2025 Team Status: Inactive Member Role/Relationship Status Dates Dr. Mary Knowles MD Primary Care Provider Active Start: June 16, 2025 End: June 16, 2025 Dr. Mary Knowles MD Referring Provider Active Start: June 16, 2025 End: June 16, 2025 Dr. Dewey Elmore MD Attending Provider Active Start: June 16, 2025 End: June 16, 2025 Goals (unrecognized section and content) Goals may be documented in a n alternate sectionGoals may be documented in an alternate sectionGoals may be documented in an alternate sectionGoals may be documented in an alternate section FOR RECORDS PERTAINING TO PATIENTS WHO ARE OR HAVE BEEN ENROLLED IN A CHEMICAL DEPENDENCY/SUBSTANCEABUSE PROGRAM, SOME INFORMATION MAY BE OMITTED. This clinical summary was aggregated from multiple sources. Caution should be exercised in using it in the provision of clinical care. This summary normalizes information from multiple sources, and as a consequence, information in this document may materially change the coding, format and clinical context of patient data. In addition, data may be omitted in some cases. CLINICAL DECISIONS SHOULD BE BASED ON THE PRIMARY CLINICAL RECORDS. [facility] [employer] [facility]. provides no warranty or guarantee of the accuracy or completeness of information in this document.
--- NOTE | 2025-07-18 07:26 | HP.PCM_ITS ---
History and Physical Date of Admission: 07/18/25 Intake Vital Signs 04/26/2508:37 05/03/2508:25 Height 6 ft 1 in 6 ft 1 in Weight: 230 lb 231 lb BMI 30.3 30.4 BP 122/68 H 118/80 Blood Pressure Location Lt brachial Rt brachial Position Sitting Sitting Respiration 18 17 Pulse 102 H 76 Pulse Source Monitor Monitor Temp 97.8 F Temp Source Temporal Pulse Oximetry (%) 97 97 Oxygen Delivery Method room air room air Intake Visit Reasons: GERD/SMALL HIATAL HERNIA Chief Complaint: gerd/hiatal hernia Is patient in pain?: No Allergies No Known Allergies Allergy (Verified 05/03/25 08:25) Medications ?Medication ?Instructions ?Recorded ?Confirmed ?Type varenicline tartrate 0.5 mg (11)-1 See Rx Instructions PO PER PKG DIR 01/06/24 05/03/25 Rx mg (42) tablets in a dose pack #53 tabs (Chantix Starting Month Box) omeprazole 40 mg capsule,delayed 40 mg PO QDAY #30 caps 04/26/25 05/03/25 Rx release sertraline 50 mg tablet 50 mg PO QDAY #30 tabs 04/26/25 05/03/25 Rx PFSH Medical History Hiatal hernia Acid reflux Diarrhea Abdominal pain Anxiety Depression Surgical History H/O esophagogastroduodenoscopy H/O colonoscopy Hx of wisdom tooth extraction Family History Father Diabetes Heart disease s/p stents Hypertension Cancer multiple myeloma and leukemia HyperlipidemiaUncle Heart disease Heart failureBrother Asperger syndromeMother Dementia Social History (Updated 04/26/25 @ 08:[address] 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 [employer] pets and animals: Yes pets and animals: cat(s) and dog(s) Smoking Status: Current every day smoker tobacco type: e-cigarettes Tobacco: How many years used: 8 Electronic Cigarette Use: with nicotine how long ago did patient quit smokin-1.5 cartridges per day second hand exposure: No quit status: considering quitting alcohol intake: current alcohol intake frequency: holidays/special occasions only substance use type: does not use caffeine: Yes (13) Type: carbonated beverages and coffee what type of physical activity do you participate in: none frequency: does not exercise seatbelt use: always do you feel safe at home: Yes HPI HPI HPI: Patient is a 34-year-old male with the history of a small hiatal hernia. The patient reports that his GERD has gotten much worse and he is having some hoarseness. Patient reports severe reflux especially if eating anything acidic. ROS General General: Yes weight change and fatigue; No appetite, colon cancer, breast cancer or weakness HEENT HEENT: Yes difficulty swallowing; No eye injury, eye surgery, swollen glands or hoarseness Endo Endocrine: No thyroid disease, diabetes mellitus, thyroid cancer, Hair loss, heat intolerance or cold intolerance Skin Skin: No rash or changing moles Musc Musculoskeletal: Yes back problems; No arthritis, rheumatoid arthritis, gout or joint pain Cardio Cardiovascular: No murmur, pacemaker, heart disease, atrial fibrillation, high blood pressure, heart attack, heart stent, palpitations, shortness of breath with exertion or chest pain Psych Psychiatric: Yes anxiety; No depression or hearing voices Resp Respiratory: No shortness of breath, No sleep apnea, No cough, No COPD, No asthma, No emphysema and No wheezing Gastro Gastrointestinal: Yes abdominal pain, No nausea or vomiting, Yes diarrhea, No constipation, No blood in stool, Yes acid reflux, No hemorrhoids, No ulcers, No gallbladder problem and No black,tarry stools Gerald Hematologic: No blood thinners, No blood disorders, No bleeding, No anemia and No blood clots Neuro Neurologic: No system reviewed and no additional complaints, except as documented, No as per HPI, No abnormal gait, No abnormal hearing, No abnormal movements, No abnormal speech, No behavioral changes, No burning sensations, No confusion, No convulsions, No disequilibrium, No dizziness, No localized weakness, No frequent falls, No headache(s), No lack of coordination, No loss of vision, No memory loss, Yes numbness, No other visual disturbances, No radicular pain, No restless legs, No sensory deficit, No syncope, No tingling, No tremor(s), No weakness and No other Exam Const General: cooperative Orientation: alert and oriented x3 HENMT Head: normal to inspection Neck Neck: normal visual inspection and full ROM Chest Chest palpation & inspection: normal inspection of the chest Resp Effort & Inspection: normal respiratory effort Auscultation: clear to auscultation bilaterally Cardio Rate: regular rate Rhythm: regular rhythm GI Inspection: non-distended Palpation: soft and nontender Skin General: no rashes or lesions noted Neuro General: patient alert and patient oriented x3 Extrem General: full ROM Psych Appearance: grossly normal Mental Status: mental status grossly normal Assessment and Plan Assessment and Plan (1) Acid reflux: Status: Acute Qualifiers: Esophagitis presence: esophagitis presence not specified Qualified Code(s): K21.9 - Gastro-esophageal reflux disease without esophagitis Plan: The patient seems to be having severe acid reflux. I discussed repeat EGD for evaluation since his last EGD was in 2018. I would like to repeat EGD with pH probe and evaluate the size of the hiatal hernia. I would also like to send him for manometry. I explained endoscopy in detail to the patient. I explained the risks including but not limited to stroke or heart attack with anesthesia, perforation of the GI tract, bleeding, infection. I explained that any of these could necessitate further emergency surgery. The patient understands and all questions were answered sufficiently. The patient wishes to proceed with procedure. Dewey Elmore MD Pager: [facility] [address] [place] [address], [address] [place] [phone] Office: I have examined the patient and the H&P has been reviewed. There are no clinical changes since date of exam.
[2025-07-18] MEDS: Lactated Ringers 1,000 ML 15 ML IV (07:44)
--- NOTE | 2025-07-18 08:00 | PRE.ANES_ITS ---
ASA Classification* ASA Classification ASA Classification: 2 Assessment & Plan Anesthesia* Anesthesia Assessment Anesthesia Assessment: Discussed sedation and/or anesthesia options, risks, benefits, and alternatives with patient/parents/legal guardian/POA. Questions invited. The patient/parents/legal guardian/POA seems to understand and agrees to proceed with anesthesia plan. Reviewed the physical assessment, medical history, allergy history and patient home medications list prior to surgery/procedure/anesthetic and documented any changes. Performed airway and anesthesia risk assessments. Anesthesia Type Anesthesia Type: MAC History Source History Obtained from:: Patient and Chart Anesthesia Focused Assessment* Temperature: 97.5 F Pulse Rate: 82 Blood Pressure: 113/79 Respiratory Rate: 16 Pulse Ox: 100 Oxygen Delivery Method: Room Air Airway Assessment Mouth opens: >3 cm Mallampati Score: I Teeth Condition: Intact Neck Range of motion (ROM): Full ROM Labs Anesthesia Preop lab: CBC WBC 6.0 K/mm3 (4.4-11.0) 02/25/25 08:37 02/25/25 RBC 5.61 M/mm3 (4.6-6.2) 02/25/25 08:37 02/25/25 Hgb 16.8 g/dL (13.0-16.5) H 02/25/25 08:37 5 Hct 47.8 % (40-54) 02/25/25 08:37 02/25/25 Plt Count 270 K/mm3 (150-450) 02/25/25 08:37 02/25/25 CHEMISTRY Potassium 4.7 mmol/L (3.3-5.1) 02/25/25 08:37 02/25/25 Sodium 138 mmol/L (133-145) 02/25/25 08:37 02/25/25 BUN 12 mg/dL (4-19) 02/25/25 08:37 02/25/25 Creatinine 0.95 mg/dL (0.70-1.20) 02/25/25 08:37 02/25/25 Glucose 99 mg/dL (70-99) 02/25/25 08:37 02/25/25 TSH 1.66 uIU/mL (0.358-3.74) 04/12/24 08:40 COAG Pre-Assessment Diagnosis/Proposed Procedure Planned Operative Procedure(s): EGD PH PROBE Anesthesia History Anesthesia History - setter cold rolling machine: Anesthesia History - setter cold rolling machine Hx Hospitalization No 07/13/25 15:38 Any Problems With Anesthesia No 07/13/25 15:38 Cholinesterase deficiency No 07/13/25 15:38 You/Your Family Experience No 07/13/25 15:38 fever (hyperthermia) with Relationship Recent Exposure to Contagious No 07/18/25 07:37 Disease Does patient have nerve No 07/13/25 15:38 stimulator Patient instructed to have device shut off --Does patient have Pacemaker No 07/18/25 07:37 or ICD? When Was Last Pacemaker Check QUESTION #4 FULL TEXT: You/Your Family Experience fever (hyperthermia) with Anesthesia Any additional information?: No Last Oral Intake Last Oral intake: Last Oral Intake NPO since 22:30 07/18/25 07:37 Meds taken in AM with sips of No 07/18/25 07:37 water? Meds patient instructed to take am of surgery Any additional information?: No PONV PONV - setter cold rolling machine: PONV - setter cold rolling machine Female No 07/13/25 15:38 HX of Motion Sickness Yes 07/13/25 15:38 HX of N/V After Surgery No 07/13/25 15:38 Non-Smoker No 07/13/25 15:38 Duration of Surgery greater No 07/13/25 15:38 than 60 minutes Number of Risk Factors 1 07/13/25 15:38 PONV Score Low Risk 07/13/25 15:38 Any additional information?: No Height & Weight Height & Weight: Anesthesia: Height & Weight Height 6 ft 1 in 07/18/25 07:37 Weight: 97 kg 07/18/25 07:37 Body Mass Index (BMI) 28.2 07/18/25 07:37 Respiratory Assessment Respiratory Assessment - setter cold rolling machine: Respiratory Tract Infection Hx - setter cold rolling machine Hx Respiratory Tract Infection No 07/13/25 15:38 Any additional information?: No STOP Sleep Apnea STOP Sleep Apnea - setter cold rolling machine: STOP Sleep Apnea - setter cold rolling machine Hx Hypertension No 07/13/25 15:38 Hx Sleep Apnea No 07/13/25 15:38 CPAP BIPAP Do you snore loudly (louder Yes 07/13/25 15:38 than talking or can be heard Do you often feel tired/ Yes 07/13/25 15:38 fatigued/ sleepy during daytime? Has anyone observed you stop No 07/13/25 15:38 breathing during sleep? STOP Results Positive 07/13/25 15:38 QUESTION #5 FULL TEXT : Do you snore loudly (louder than talking or can be heard through closed doors)? 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 Specify any problems Hx of Preganancy in last 3 N/A 07/13/25 15:38 Months Nurse Filling Out Transfusion DSCHRIBER 07/13/25 15:38 & Questions: Date: 07/13/25 07/13/25 15:38 Time: 15:39 07/13/25 15:38 Patient unable to answer at this time (ie. confused, unrespo Any additional information?: No /Reproduction History /Reproductive History - setter cold rolling machine: /Reproductive Hx- setter cold rolling machine Hx Now No 07/13/25 15:38 Gestational Age (in weeks): EDC: Hx Hx Para Hx Section SAB No 07/13/25 15:38 Any additional information?: No Active Medications Active Medications: Current Medications Generic Name Dose Route Start Last Admin Trade Name Freq PRN Reason Stop Dose Admin Lactated Ringer's 1,000 mls @ 15 mls/hr 07/18/25 07:30 07/18/25 07:44 IV 15 mls/hr .Q48H ZEN Administration PFSH Medical History (Updated 07/13/25 @ 15:42 by Meena Calvert) Alcohol use Back pain Migraine headache Gastric reflux Vapes nicotine containing substance Hiatal hernia Anxiety Depression Home Medications ?Medication ?Instructions ?Recorded ?Last Taken ?Type omeprazole 40 mg capsule,delayed 40 mg PO QDAY #30 cap s 04/26/25 07/13/25 Rx release sertraline 50 mg tablet 50 mg PO QDAY #30 tabs 07/11 Unknown Rx Allergy/AdvReac Type Severity Reaction Status Date / Time No Known Allergies Allergy Verified 07/18/25 07:30 Family History Father Diabetes Heart disease s/p stents Hypertension Cancer multiple myeloma and leukemia Hyperlipidemia Uncle Heart disease Heart failure Brother Asperger syndrome Mother Dementia Surgical History (Updated 07/13/25 @ 15:42 by Meena Calvert) H/O esophagogastroduodenoscopy H/O colonoscopy Social History (Updated 04/26/25 @ 08:[address] 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 [employer] pets and animals: Yes pets and animals: cat(s) and dog(s) Smoking Status: Current every day smoker tobacco type: e-cigarettes Tobacco: How many years used: 8 Electronic Cigarette Use: with nicotine how long ago did patient quit smokin-1.5 cartridges per day second hand exposure: No quit status: considering quitting alcohol intake: current alcohol intake frequency: holidays/special occasions only substance use type: does not use caffeine: Yes (13) Type: carbonated beverages and coffee what type of physical activity do you participate in: none frequency: does not exercise seatbelt use: always do you feel safe at home: Yes Review of Systems (Anesthesia) ROS Narrative System reviewed and no additional complaints, except as documented.
[2025-07-18] MEDS: Lidocaine 1% (5 ml sdv) 5 ML Vial 10 ML IV (08:07)
--- NOTE | 2025-07-18 08:19 | PCM.POST.ANE ---
Anesthesia: Postop Eval I Current Vital Signs Temperature: 97.4 F Pulse Rate: 72 Blood Pressure: 109/74 Respiratory Rate: 14 Pulse Ox: 98 Oxygen Delivery Method: Room Air Assessment Airway patent: Yes Spontaneous unlabored respirations: Yes Mental status: Awake nausea: No Vomiting: No Anesthesia Complication: No Fluid Hydration Crystalloid volume administer (ml): 400 Total IV fluid infused: 400 Progress Note Anesthesia document: Postop Eval 1 completed: Yes
--- NOTE | 2025-07-18 08:23 | OP.PROVAT_ITS ---
07/18/2025 Mary Knowles Md Re : Upper GI endoscopy procedure for Pablito Jean Baptiste Dear Benson This procedure was performed on Friday, July 18, 2025. My impressions and recommendations are as follows: Impressions : - Normal esophagus. - Normal stomach. - Normal examined duodenum. - The WYMAN pH capsule was positioned 38 cm from the incisors, which was 6 cm proximal to the GE junction. - No specimens collected. Recommendations : - Discharge patient to home. - Resume previous diet. - Continue present medications. - Return to my office in 2 weeks. My findings are described in the full procedure note, which is enclosed. If I can be of further assistance, please feel free to contact me at Doctor phone number(s): , Work: . Sincerely, Dewey Elmore MD 07/18/2025 8:23:00 AM This report has been signed electronically.
--- NOTE | 2025-07-18 08:23 | OP.EGD_ITS ---
Patient Name: Pablito Jean Baptiste Procedure Date: 07/18/2025 7:43 AM Date of : 1990 Age: 34 Procedure: Upper GI endoscopy Indications: Heartburn, Esophageal reflux Providers: Dewey Elmore MD Referring MD: Mary Knowles Md Medicines: Propofol per Anesthesia Patient Profile: This is a 34 year old male. Refer to note in patient chart for documentation of history and physical. Complications: No immediate complications. Estimated blood loss: Minimal. Procedure: Pre-Anesthesia Assessment: - Prior to the procedure, a History and Physical was performed, and patient medications and allergies were reviewed. The patient's tolerance of previous anesthesia was also reviewed. The risks and benefits of the procedure and the sedation options and risks were discussed with the patient. All questions were answered, and informed consent was obtained. Prior Anticoagulants: The patient has taken no anticoagulant or antiplatelet agents. After reviewing the risks and benefits, the patient was deemed in satisfactory condition to undergo the procedure. After obtaining informed consent, the endoscope was passed under direct vision. Throughout the procedure, the patient's blood pressure, pulse, and oxygen saturations were monitored continuously. The Endoscope was introduced through the mouth, and advanced to the fourth part of duodenum. The upper GI endoscopy was accomplished without difficulty. The patient tolerated the procedure well. Scope In: 8:09:21 AM Scope Out: 8:14:46 AM Total Procedure Duration Time 0 hours 5 minutes 25 seconds Findings: The esophagus was normal. The stomach was normal. The examined duodenum was normal. The WYMAN capsule with delivery system was introduced through the mouth and advanced into the esophagus, such that the WYMAN pH capsule was positioned 38 cm from the incisors, which was 6 cm proximal to the GE junction. Suction was applied to the well of the WYMAN pH capsule to suck in the adjacent mucosa of the esophagus using the external vacuum pump set at a minimum vacuum pressure of 550 mmHg for 30 seconds. The WYMAN pH capsule was then deployed by depressing the plunger on top of the handle to advance the locking pin into the mucosa, thereby attaching the capsule to the esophagus. The plunger was then rotated a quarter turn clockwise to release the capsule from the delivery system. The delivery system was then withdrawn. Endoscopy was utilized for probe placement and diagnostic evaluation. The scope was reinserted to evaluate placement of the WYMAN capsule. Visualization showed the WYMAN capsule to be in an appropriate position. Impression: - Normal esophagus. - Normal stomach. - Normal examined duodenum. - The WYMAN pH capsule was positioned 38 cm from the incisors, which was 6 cm proximal to the GE junction. - No specimens collected. Recommendation: - Discharge patient to home. - Resume previous diet. - Continue present medications. - Return to my office in 2 weeks. Procedure Code(s): --- Professional --- 21978, Esophagogastroduodenoscopy, flexible, transoral; diagnostic, including collection of specimen(s) by brushing or washing, when performed (separate procedure) Diagnosis Code(s): --- Professional --- R12, Heartburn K21.9, Gastro-esophageal reflux disease without esophagitis CPT copyright 2021 [employer]. All rights reserved. The codes documented in this report are preliminary and upon gas attendant review may be revised to meet current compliance requirements. Dewey Elmore MD 07/18/2025 8:23:00 AM This report has been signed electronically. Number of Addenda: 0 Note Initiated On: 07/18/2025 7:43 AM
--- NOTE | 2025-07-18 08:58 | POSTOPAN2_ITS ---
Anesthesia Postop Eval I Sum Postop Eval Completion status Anesthesia document: Postop Eval 1 completed: Yes Anesthesia Postop Eval I Summary Anesthesia Postop Eval I Summary: Anesthesia Postop Eval I: Assessment Summary Airway patent Yes 07/18/25 08:21 SUPERVISOR FORMING DEPARTMENT.HBARR Spontaneous unlabored Yes 07/18/25 08:21 SUPERVISOR FORMING DEPARTMENT.HBARR respirations Mental status Awake 07/18/25 08:21 SUPERVISOR FORMING DEPARTMENT.HBARR nausea No 07/18/25 08:21 SUPERVISOR FORMING DEPARTMENT.HBARR Vomiting No 07/18/25 08:21 SUPERVISOR FORMING DEPARTMENT.HBARR Anesthesia Postop Eval I: Fluid Summary Crystalloid volume administer 400 07/18/25 08:21 SUPERVISOR FORMING DEPARTMENT.HBARR (ml) Colloids volume administered ( ml) Blood Product volume administered (ml) Total IV fluid infused 400 07/18/25 08:21 SUPERVISOR FORMING DEPARTMENT.HBARR Anesthesia Postop Eval I: Summary Notes Anesthesia Complication No 07/18/25 08:21 SUPERVISOR FORMING DEPARTMENT.HBARR Anesthesia Complication Comment: Post-operative progress note Anesthesia: Postop Eval II Evaluation Mental status: Awake Pain Level: 0 nausea: No Vomiting: No Complications Anesthesia Complication: No
--- NOTE | 2025-07-18 08:58 | PCM.POSTANE2 ---
Anesthesia Postop Eval I Sum Postop Eval Completion status Anesthesia document: Postop Eval 1 completed: Yes Anesthesia Postop Eval I Summary Anesthesia Postop Eval I Summary: Anesthesia Postop Eval I: Assessment Summary Airway patent Yes 07/18/25 08:21 PAIN COORDINATOR.HBARR Spontaneous unlabored Yes 07/18/25 08:21 PAIN COORDINATOR.HBARR respirations Mental status Awake 07/18/25 08:21 PAIN COORDINATOR.HBARR nausea No 07/18/25 08:21 PAIN COORDINATOR.HBARR Vomiting No 07/18/25 08:21 PAIN COORDINATOR.HBARR Anesthesia Postop Eval I: Fluid Summary Crystalloid volume administer 400 07/18/25 08:21 PAIN COORDINATOR.HBARR (ml) Colloids volume administered ( ml) Blood Product volume administered (ml) Total IV fluid infused 400 07/18/25 08:21 PAIN COORDINATOR.HBARR Anesthesia Postop Eval I: Summary Notes Anesthesia Complication No 07/18/25 08:21 PAIN COORDINATOR.HBARR Anesthesia Complication Comment: Post-operative progress note Anesthesia: Postop Eval II Evaluation Mental status: Awake Pain Level: 0 nausea: No Vomiting: No Complications Anesthesia Complication: No
== END 2025-07-18 09:11 | disposition home or self-care (01) ==
LOC: EN 07:12 → AC 07:13
PROVIDERS: PCP Internal Medicine; Referring Provider Internal Medicine; Visit Provider Surgery
PROC: (CPT 43235; principal; 2025-07-18 08:10)
DX: K21.9 Gastro-esophageal reflux disease without esophagitis (principal); K44.9 Diaphragmatic hernia without obstruction or gangrene; F17.290 Nicotine dependence, other tobacco product, uncomplicated; Z79.899 Other long term (current) drug therapy
CPT/HCPCS: 43235

== ENCOUNTER 2025-08-22 13:41 | Observation (INO) | payer OTHER, SELFPAY ==
[2025-08-22] VITALS (18 sets, daily range): BP systolic 116–159; BP diastolic 66–98; PULSE 73–118; RESP 16–18; TEMP 36.3–36.9; O2SAT 93–98; BMI 29.1
[2025-08-22] MEDS: Lactated Ringers 1,000 ML 15 ML IV (09:15)
--- NOTE | 2025-08-22 10:00 | PRE.ANES_ITS ---
ASA Classification* ASA Classification ASA Classification: 2 Assessment & Plan Anesthesia* Anesthesia Assessment Anesthesia Assessment: Discussed sedation and/or anesthesia options, risks, benefits, and alternatives with patient/parents/legal guardian/POA. Questions invited. The patient/parents/legal guardian/POA seems to understand and agrees to proceed with anesthesia plan. Reviewed the physical assessment, medical history, allergy history and patient home medications list prior to surgery/procedure/anesthetic and documented any changes. Performed airway and anesthesia risk assessments. Anesthesia Type Anesthesia Type: General History Source History Obtained from:: Patient and Chart Anesthesia Focused Assessment* Temperature: 98.4 F Pulse Rate: 84 Blood Pressure: 129/95 Respiratory Rate: 16 Pulse Ox: 98 Oxygen Delivery Method: Room Air Airway Assessment Mouth opens: >3 cm Mallampati Score: I Teeth Condition: Intact Neck Range of motion (ROM): Full ROM Labs Anesthesia Preop lab: CBC WBC, (4.4-11.0) 6.0 K/mm3 02/25/25, 08:37 RBC, (4.6-6.2) 5.61 M/mm3 02/25/25, 08:37 Hgb, (13.0-16.5) 16.8 g/dL H 02/25/25, 08:37 Hct, (40-54) 47.8 % 02/25/25, 08:37 Plt Count, (150-450) 270 K/mm3 02/25/25, 08:37 CHEMISTRY Potassium, (3.3-5.1) 4.7 mmol/L 02/25/25, 08:37 Sodium, (133-145) 138 mmol/L 02/25/25, 08:37 BUN, (4-19) 12 mg/dL 02/25/25, 08:37 Creatinine, (0.70-1.20) 0.95 mg/dL 02/25/25, 08:37 Glucose, (70-99) 99 mg/dL 02/25/25, 08:37 TSH, (0.358-3.74) 1.66 uIU/mL 04/12/24, 08:40 COAG Pre-Assessment Diagnosis/Proposed Procedure Planned Operative Procedure(s): (N/A) Laparoscopic, Ladi Fundoplication w/HH repair Anesthesia History Anesthesia History - water purification chemist: Anesthesia History - water purification chemist Hx Hospitalization No 08/11/25 13:18 Any Problems With Anesthesia No 08/11/25 13:18 Cholinesterase deficiency No 08/11/25 13:18 You/Your Family Experience No 08/11/25 13:18 fever (hyperthermia) with Relationship Recent Exposure to Contagious No 08/22/25 09:40 Disease Does patient have nerve No 08/11/25 13:18 stimulator Patient instructed to have device shut off --Does patient have Pacemaker No 08/22/25 09:40 or ICD? When Was Last Pacemaker Check QUESTION #4 FULL TEXT: You/Your Family Experience fever (hyperthermia) with Anesthesia Last Oral Intake Last Oral intake: Last Oral Intake NPO since 00:00 08/22/25 09:40 Meds taken in AM with sips of No 08/22/25 09:40 water? Meds patient instructed to take am of surgery PONV PONV - water purification chemist: PONV - water purification chemist Female No 08/11/25 13:18 HX of Motion Sickness No 08/11/25 13:18 HX of N/V After Surgery No 08/11/25 13:18 Non-Smoker No 08/11/25 13:18 Duration of Surgery greater Yes 08/11/25 13:18 than 60 minutes Number of Risk Factors 1 08/11/25 13:18 PONV Score Low Risk 08/11/25 13:18 Height & Weight Height & Weight: Anesthesia: Height & Weight Height 6 ft 1 in 08/22/25 09:40 Weight: 100.2 kg 08/22/25 09:40 Body Mass Index (BMI) 29.1 08/22/25 09:40 Respiratory Assessment Respiratory Assessment - water purification chemist: Respiratory Tract Infection Hx - water purification chemist Hx Respiratory Tract Infection No 08/11/25 13:18 STOP Sleep Apnea STOP Sleep Apnea - water purification chemist: STOP Sleep Apnea - water purification chemist Hx Hypertension No 08/11/25 13:18 Hx Sleep Apnea No 08/11/25 13:18 CPAP BIPAP Do you snore loudly (louder No 08/11/25 13:18 than talking or can be heard Do you often feel tired/ No 08/11/25 13:18 fatigued/ sleepy during daytime? Has anyone observed you stop No 08/11/25 13:18 breathing during sleep? STOP Results Negative 08/11/25 13:18 QUESTION #5 FULL TEXT : Do you snore loudly (louder than talking or can be heard through closed doors)? 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 Specify any problems Hx of Preganancy in last 3 N/A 08/11/25 13:18 Months Nurse Filling Out Transfusion NBUCHER 08/11/25 13:18 & Questions: Date: 08/11/25 08/11/25 13:18 Time: 13:19 08/11/25 13:18 Patient unable to answer at this time (ie. confused, unrespo /Reproduction History /Reproductive History - water purification chemist: /Reproductive Hx- water purification chemist Hx Now Gestational Age (in weeks): EDC: Hx Hx Para Hx Section SAB No 08/11/25 13:18 Active Medications Active Medications: Current Medications Generic Name Dose Route Start Last Admin Trade Name Freq PRN Reason Stop Dose Admin Cefotetan Disodium 2 gm/ 100 mls @ 200 mls/hr 08/22/25 10:30 Sodium Chloride IV 08/22/25 10:59 INTRAOP ONE Lactated Ringer's 1,000 mls @ 15 mls/hr 08/22/25 09:15 08/22/25 09:15 IV 15 mls/hr .Q48H ZEN Administration PFSH Medical History Electronic cigarette use Alcohol use Back pain Migraine headache Gastric reflux Vapes nicotine containing substance Hiatal hernia Anxiety Depression Home Medications ?Medication ?Instructions ?Recorded ?Last Taken ?Type varenicline tartrate 0.5 mg (11)-1 See Rx Instructions PO PER PKG DIR 07/28/25 08/21/25 Rx mg (42) tablets in a dose pack #53 tabs (Chantix Starting Month Box) RETRATRUTIDE subcut TH 08/11/25 08/03/25 History nandrolone decanoate 50 mg/mL 25 mg IM MOFR 08/11/25 0 08/07/25 History intramuscular oil omeprazole 40 mg capsule,delayed 40 mg PO QDAY #30 cap s 08/11/25 08/21/25 Rx release sertraline 100 mg tablet 100 mg PO QDAY #30 tabs 07/2408/21/25 Rx testosterone 50 mg/mL 25 mg IM MOFR 08/11/2508/07 History intramuscular solution Allergy/AdvReac Type Severity Reaction Status Date / Time No Known Allergies Allergy Verified 08/22/25 09:38 Family History Father Diabetes Heart disease s/p stents Hypertension Cancer multiple myeloma and leukemia Hyperlipidemia Uncle Heart disease Heart failure Brother Asperger syndrome Mother Dementia Surgical History H/O esophagogastroduodenoscopy H/O colonoscopy Social History adopted: No household members: spouse and children number of children: 2 current occupational status: employed 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, 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 [employer] pets and animals: Yes pets and animals: cat(s) and dog(s) Smoking Status: Current every day smoker tobacco type: e-cigarettes Tobacco: How many years used: 8 Electronic Cigarette Use: with nicotine how long ago did patient quit smokin-1.5 cartridges per day second hand exposure: No quit status: considering quitting alcohol intake: current alcohol intake frequency: holidays/special occasions only substance use type: does not use caffeine: Yes (13) Type: carbonated beverages and coffee what type of physical activity do you participate in: none frequency: does not exercise seatbelt use: always do you feel safe at home: Yes Review of Systems (Anesthesia) ROS Narrative System reviewed and no additional complaints, except as documented.
--- NOTE | 2025-08-22 10:05 | HP.PCM_ITS ---
History and Physical Date of Admission: 08/22/25 Intake Vital Signs 07/18/2507:37 08/08/2513:27 Height 6 ft 1 in 6 ft 1 in Weight: 214 lb BMI 28.2 BP 115/76 Blood Pressure Location Rt brachial Position Sitting Respiration 18 Pulse 61 Pulse Source Monitor Temp 97.5 F L Temp Source Temporal Pulse Oximetry (%) 99 Oxygen Delivery Method room air Intake Visit Reasons: S/P EGD- REVIEW PROBE RESULTS Chief Complaint: s/p egd- review probe results Accompanied by: Is patient in pain?: No Allergies No Known Allergies Allergy (Verified 08/08/25 13:10) Medications ?Medication ?Instructions ?Recorded ?Confirmed ?Type omeprazole 40 mg capsule,delayed 40 mg PO QDAY #30 caps 04/26/25 08/08/25 Rx release sertraline 50 mg tablet 50 mg PO QDAY #30 tabs 07/11/25 08/08/25 Rx varenicline tartrate 0.5 mg (11)-1 See Rx Instructions PO PER PKG DIR 07/28/25 08/08/25 Rx mg (42) tablets in a dose pack #53 tabs (Chantix Starting Month Box) PFSH Medical History Alcohol use Back pain Migraine headache Gastric reflux Vapes nicotine containing substance Hiatal hernia Anxiety Depression Surgical History H/O esophagogastroduodenoscopy H/O colonoscopy Family History Father Diabetes Heart disease s/p stents Hypertension Cancer multiple myeloma and leukemia Hyperlipidemia Uncle Heart disease Heart failure Brother Asperger syndrome Mother Dementia Social History adopted: No household members: spouse and children number of children: 2 current occupational status: employed 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, 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 [employer] pets and animals: Yes pets and animals: cat(s) and dog(s) Smoking Status: Current every day smoker tobacco type: e-cigarettes Tobacco: How many years used: 8 Electronic Cigarette Use: with nicotine how long ago did patient quit smokin-1.5 cartridges per day second hand exposure: No quit status: considering quitting alcohol intake: current alcohol intake frequency: holidays/special occasions only substance use type: does not use caffeine: Yes (13) Type: carbonated beverages and coffee what type of physical activity do you participate in: none frequency: does not exercise seatbelt use: always do you feel safe at home: Yes HPI HPI HPI: Patient is here to discuss his results from his pH probe and manometry. ROS General General: Yes weight change and fatigue; No appetite, colon cancer, breast cancer or weakness HEENT HEENT: Yes difficulty swallowing; No eye injury, eye surgery, swollen glands or hoarseness Endo Endocrine: No thyroid disease, diabetes mellitus, thyroid cancer, Hair loss, heat intolerance or cold intolerance Skin Skin: No rash or changing moles Musc Musculoskeletal: Yes back problems; No arthritis, rheumatoid arthritis, gout or joint pain Cardio Cardiovascular: No murmur, pacemaker, heart disease, atrial fibrillation, high blood pressure, heart attack, heart stent, palpitations, shortness of breath with exertion or chest pain Psych Psychiatric: Yes anxiety; No depression or hearing voices Resp Respiratory: No shortness of breath, No sleep apnea, No cough, No COPD, No asthma, No emphysema and No wheezing Gastro Gastrointestinal: Yes abdominal pain, No nausea or vomiting, Yes diarrhea, No constipation, No blood in stool, Yes acid reflux, No hemorrhoids, No ulcers, No gallbladder problem and No black,tarry stools Gerald Hematologic: No blood thinners, No blood disorders, No bleeding, No anemia and No blood clots Neuro Neurologic: No system reviewed and no additional complaints, except as documented, No as per HPI, No abnormal gait, No abnormal hearing, No abnormal movements, No abnormal speech, No behavioral changes, No burning sensations, No confusion, No convulsions, No disequilibrium, No dizziness, No localized weakness, No frequent falls, No headache(s), No lack of coordination, No loss of vision, No memory loss, Yes numbness, No other visual disturbances, No radicular pain, No restless legs, No sensory deficit, No syncope, No tingling, No tremor(s), No weakness and No other Exam Const General: cooperative Orientation: alert and oriented x3 HENMT Head: normal to inspection Neck Neck: normal visual inspection and full ROM Chest Chest palpation & inspection: normal inspection of the chest Resp Effort & Inspection: normal respiratory effort Auscultation: clear to auscultation bilaterally Cardio Rate: regular rate Rhythm: regular rhythm GI Inspection: non-distended Palpation: soft and nontender Skin General: no rashes or lesions noted Neuro General: patient alert and patient oriented x3 Extrem General: full ROM Psych Appearance: grossly normal Mental Status: mental status grossly normal Assessment and Plan Assessment and Plan (1) Acid reflux: Status: Acute Qualifiers: Esophagitis presence: esophagitis presence not specified Qualified Code(s): K21.9 - Gastro-esophageal reflux disease without esophagitis Plan: The patient has severe acid reflux. I went over his pH probe results which show an elevated DeMeester score indicating reflux especially at night. The patient also went over his manometry results which were normal. I recommended Ladi fundoplication with hiatal hernia repair. I discussed this with him in detail. I discussed the risks of the procedure such as bleeding, infection, injury to surrounding organs such as the lungs, heart, aorta or liver or spleen. I also discussed the possibility of injury to the esophagus or stomach. Patient understands the risks and is willing to proceed. He was given postoperative instructions and postoperative diet instructions. Dewey Elmore MD Pager: [facility] [address] [place] [address] Office: I have examined the patient and the H&P has been reviewed. There are no clinical changes since date of exam.
[2025-08-22] MEDS: Lidocaine 1% (5 ml sdv) 5 ML Vial IV (11:35)
[2025-08-22] MEDS: fentaNYL 100 MCG/2 ML Ampul 200 MCG IV (13:01)
[2025-08-22] MEDS: Bupiv/Epi 0.25% 30 ML Vial (13:12)
--- NOTE | 2025-08-22 13:31 | OP.PCM_ITS ---
Operative Report (Standard) Operative Information Date of Procedure: 08/22/25 Pre-Operative Diagnosis: Intractable reflux and GERD Post-Operative Diagnosis: Same Surgery/Procedure Performed: Laparoscopic hiatal hernia repair with Ladi fundoplication and EGD vibration analyst: Yes Gliding Pilot Instructor: Porsche Mohamud Tasks completed by intellectual property legal assistant: Opening & closing and Retracting Type of Anesthesia: General/Regional RN Documented Start/Stop Times: Operation Date: 08/22/25 10:30 Case Time Into Pre-Op 08/22/25 09:08 Out of Pre-Op 08/22/25 11:24 Anesthesia Start 08/22/25 11:28 Into Room 08/22/25 11:28 Procedure Start 08/22/25 11:53 Procedure End 08/22/25 13:22 Anesthesia End 08/22/25 13:30 Out of Room 08/22/25 13:30 Procedure Start Time: 11:53 Procedure Stop Time: 13:22 Select all DRAINS/GRAFTS/IMPLANTS that apply: None Estimated Blood Loss: 10 Specimen collected: No Description of surgery: Patient was taken back to the operating room and general anesthesia was induced. The abdomen was prepped and draped in usual sterile fashion. A midline incision was made superior to the umbilicus and deepened to the fascia. The fascia was elevated and incised. The port was placed into the abdomen and was insufflated 15 mmHg. Next under direct visualization an incision was made in the epigastric area and the Kristin liver retractor was placed into the abdomen and the liver was retracted. Next under direct visualization two 5 mm ports were placed in the left upper quadrant and one 5 mm ports placed in the right upper quadrant. Next the stomach was inspected. There was a large left gastric vessel coming through the pars flaccida. This was avoided and retracted laterally. The pars flaccida was dissected free until the crura was identified. The right crura was dissected free. Next on the greater curvature and area was dissected until the lesser sac was reached. Next coming up around the greater curvature the vessels were taken down using Enseal until the spleen was encountered. The short gastrics were taken down using Enseal. This mobilized the stomach medially. The left crura was identified and dissected free. Next the area posterior to the esophagus was dissected free until an opening was made and a Marky was placed through the opening and was retracted inferiorly. Dissection was carried out around the esophagus into the mediastinum to elongate the esophageal length. There was good hemostasis. Vagus nerves were identified. Next the crura were reapproximated using 3 interrupted Ethibond sutures. This close the hiatal hernia. The stomach was brought behind the esophagus and it reached easily with no tension. The Lashmeet was removed. After dissection was carried out circumferentially around the esophagus the NG tube was removed and replaced with a 54 [place]ian bougie. Next the fundoplication was performed. The full wrap was performed using Ethibond sutures. The most superior suture incorporated the diaphragm. Next an EGD was performed. The bougie was removed and a well-lubricated scope was placed into the mouth and down through the esophagus and into the stomach. I passed into the stomach easily with no resistance. Retroflexion was obtained and the wrap appeared in good position. The abdomen was irrigated and the stomach was filled with air. There were no bubbles. The water was suctioned and the stomach was suctioned. The scope was removed from the mouth. Next the remaining irrigation was suctioned from the abdomen. The Kristin retractor was removed. The ports were removed and the abdomen was allowed to desufflate. The midline fascia was closed with 2 interrupted 0 Vicryl sutures. Next the skin incisions were injected with local anesthetic and closed with interrupted 4-0 Monocryl sutures. Steri-Strips and bandages were applied. Patient was awoken and taken to PACU in stable condition and tolerated the procedure well. Surgical Findings: Small hiatal hernia Complications Complications: No Admit VTE Documentation VTE Mechan Device Prophylaxis: SCD's
--- NOTE | 2025-08-22 13:39 | PCM.POST.ANE ---
Anesthesia: Postop Eval I Current Vital Signs Temperature: 97.9 F Pulse Rate: 115 Blood Pressure: 149/98 Respiratory Rate: 18 Pulse Ox: 97 Assessment Airway patent: Yes Spontaneous unlabored respirations: Yes nausea: No Vomiting: No Anesthesia Complication: No Fluid Hydration Crystalloid volume administer (ml): 1,600 Total IV fluid infused: 1,600 Progress Note Anesthesia document: Postop Eval 1 completed: Yes
[2025-08-22] MEDS: 0.9% Normal Saline (1000mL) 1,000 ML 100 ML IV ×2 (14:25→22:56)
--- NOTE | 2025-08-22 22:22 | POSTOPAN2_ITS ---
Anesthesia Postop Eval I Sum Postop Eval Completion status Anesthesia document: Postop Eval 1 completed: Yes Anesthesia Postop Eval I Summary Anesthesia Postop Eval I Summary: Anesthesia Postop Eval I: Assessment Summary Airway patent Yes 08/22/25 13:39 SALES PROFESSIONAL BILINGUAL.[email or web address] Spontaneous unlabored Yes 08/22/25 13:39 SALES PROFESSIONAL BILINGUALTD respirations Mental status nausea No 08/22/25 13:39 SALES PROFESSIONAL BILINGUAL.FANOBKarey Vomiting No 08/22/25 13:39 SALES PROFESSIONAL BILINGUAL.FANOBKarey Anesthesia Postop Eval I: Fluid Summary Crystalloid volume administer 1,600 08/22/25 13:39 SALES PROFESSIONAL BILINGUAL.FANOBY (ml) Colloids volume administered ( ml) Blood Product volume administered (ml) Total IV fluid infused 1,600 08/22/25 13:39 SALES PROFESSIONAL BILINGUAL.JAZMIN Anesthesia Postop Eval I: Summary Notes Anesthesia Complication No 08/22/25 13:39 SALES PROFESSIONAL BILINGUALTD Anesthesia Complication Comment: Post-operative progress note Anesthesia: Postop Eval II Evaluation Mental status: Awake and Calm Pain Level: 2 nausea: No Vomiting: No Complications Anesthesia Complication: No
--- NOTE | 2025-08-22 22:22 | PCM.POSTANE2 ---
Anesthesia Postop Eval I Sum Postop Eval Completion status Anesthesia document: Postop Eval 1 completed: Yes Anesthesia Postop Eval I Summary Anesthesia Postop Eval I Summary: Anesthesia Postop Eval I: Assessment Summary Airway patent Yes 08/22/25 13:39 HYDRAULIC HAMMER OPERATOR.[email or web address] Spontaneous unlabored Yes 08/22/25 13:39 HYDRAULIC HAMMER OPERATORTD respirations Mental status nausea No 08/22/25 13:39 HYDRAULIC HAMMER OPERATOR.FANOBKarey Vomiting No 08/22/25 13:39 HYDRAULIC HAMMER OPERATOR.FANOBKarey Anesthesia Postop Eval I: Fluid Summary Crystalloid volume administer 1,600 08/22/25 13:39 HYDRAULIC HAMMER OPERATOR.FANOBY (ml) Colloids volume administered ( ml) Blood Product volume administered (ml) Total IV fluid infused 1,600 08/22/25 13:39 HYDRAULIC HAMMER OPERATOR.JAZMIN Anesthesia Postop Eval I: Summary Notes Anesthesia Complication No 08/22/25 13:39 HYDRAULIC HAMMER OPERATORTD Anesthesia Complication Comment: Post-operative progress note Anesthesia: Postop Eval II Evaluation Mental status: Awake and Calm Pain Level: 2 nausea: No Vomiting: No Complications Anesthesia Complication: No
[2025-08-23 02:48] VITALS: BP 118/64; PULSE 82; RESP 16; TEMP 36.6; O2SAT 97
[2025-08-23] MEDS: 0.9% Saline Lock 10 ML Syringe IV (02:58)
[2025-08-23 06:10] LABS: Hematocrit 45.5 % (40-54); Hemoglobin 15.7 g/dL (13.0-16.5); Immature Granulocytes Count 0.030 X10^3/uL (0.0-0.0); Mean Corp Hgb Conc 34.5 g/dL (32-36); Mean Corpuscular Volume 88.9 fL (80-94); Mean Platelet Vol. 9.3 fl (6.2-12.0); NRBC Flagged by Analyzer 0 % (0-5); Platelet Count 281 K/mm3 (150-450); RBC Distribution Width CV 14.3 % (11.6-14.6); RBC Distribution Width SD 46.4 fl (35.1-43.9); Red Blood Count 5.12 M/mm3 (4.6-6.2); White Blood Count 10.1 K/mm3 (4.4-11.0)
[2025-08-23 06:39] VITALS: BP 122/65; PULSE 67; RESP 16; TEMP 36.6; O2SAT 100
[2025-08-23 07:02] LABS: Anion Gap 11 (5-15); BUN 9 mg/dL (4-19); BUN/Creat Ratio 11.2 RATIO (10-20); Calcium,Total 8.0 mg/dL (7.6-11.0); Carbon Dioxide 22.6 mmol/L (21.0-32.0); Chloride 106 mmol/L (98-108); Estimated Creatinine Clearance 160.45 ml/min (50-250); Glucose 94 mg/dL (70-99); Potassium 3.9 mmol/L (3.3-5.1)
--- NOTE | 2025-08-23 07:51 | PN.SURG_ITS ---
Subjective Subjective Patient is doing well with no complaints. Objective Data Objective Data Vital Signs: Vital Signs Temp Pulse Resp BP Pulse Ox O2 Del Method O2 Flow Rate 97.9 F 67 16 122/65 H 100 Room Air 2 08/23/25 06:39 08/23/25 06:39 08/23/25 06:39 08/23/25 06:39 08/23/25 06:39 08/23/25 06:39 08/22/25 17:59 Oxygen Flow Rate (L/min) 2 Oxygen Delivery Method Room Air Weight: 220 lb 14.451 oz Body Mass Index (BMI) 29.1 Intake & Output: Intake and Output for Last 24 Hours 08/21/25 08/22/25 08/23/25 23:59 23:59 23:59 Intake Total 3451.67 / 3451.67 Output Total Balance 3441.67 / 3441.67 Lab / Micro Data 08/23/25 05:35 08/23/25 05:35 Labs: Laboratory Results - last 24 hr 08/23/25 05:35: WBC 10.1, RBC 5.12, Hgb 15.7, Hct 45.5, MCV 88.9, MCH 30.7, MCHC 34.5, RDW Std Deviation 46.4 H, RDW Coeff of Leila 14.3, Plt Count 281, MPV 9.3, Immature Gran % (Auto) 0.300, Neut % (Auto) 80.9 H, Lymph % (Auto) 11.2 L, Stanley % (Auto) 7.1, Eos % (Auto) 0.3, Baso % (Auto) 0.2, Absolute Neuts (auto) 8.2 H, Absolute Lymphs (auto) 1.13, Nucleated RBC % 0, Sodium 139, Potassium 3.9, Chloride 106, Carbon Dioxide 22.6, Anion Gap 11, BUN 9, Creatinine 0.80, Estim Creat Clear Calc 160.45, Est GFR (MDRD) Non-Af 118, BUN/Creatinine Ratio 11.2, Glucose 94, Calcium 8.0 Physical Exam Const oriented x3 and no apparent distress Resp normal respiratory effort and clear to auscultation bilaterally Cardio regular rate and regular rhythm GI soft to palpation and non-tender Assessment & Plan Assessment/Plan (1) Status post Ladi fundoplication: PLAN: Patient is doing very well after Ladi fundoplication. I will start clears this morning and advance him to fulls this afternoon. Hopeful for discharge this afternoon. Dewey Elmore MD Pager: [facility] [address] [place] [address], [address] [place] [address] Office:
--- NOTE | 2025-08-23 08:23 | PCM.DC.SUM ---
Providers Date of Admission: 08/22/25 Primary Care Physician: Dr. Mary Knowles MD Reason For Visit: Laparoscopic, Ladi Fundoplication w/HH repair Diagnosis Discharge Diagnosis (1) Status post Ladi fundoplication: Status: Acute Code(s): Z98.890 - Other specified postprocedural states Medications at Discharge Home Medications varenicline tartrate 0.5 mg (11)-1 mg (42) tablets in a dose pack (Chantix Starting Month Box) See Rx Instructions PO PER PKG DIR #53 tabs 07/28/25 RETRATRUTIDE subcut TH 08/11/25 nandrolone decanoate 50 mg/mL intramuscular oil 25 mg IM MOFR 08/11/25 omeprazole 40 mg capsule,delayed release 40 mg PO QDAY #30 caps 08/11/25 sertraline 100 mg tablet 100 mg PO QDAY #30 tabs 08/11/25 testosterone 50 mg/mL intramuscular solution 25 mg IM MOFR 08/11/25 oxycodone 5 mg tablet 5 mg PO Q6H PRN pain 3 days #10 tabs 08/23/25 Hospital Course Operations - (Laparoscopic hiatal hernia repair with Ladi fundoplication and EGD) Summary of Care Provided Hospital Course: Patient presented for an elective Laparoscopic hiatal hernia repair with Ladi fundoplication and EGD with Dr. Elmore completed on 08/22/25. Patient had an uneventful hospitalization. Upon discharge, he tolerated a clear liquid and full liquid diet. He notes very minimal amount of discomfort. He will be discharged on a full liquid diet as provided on the discharge instructions. He will follow-up in [address] Elmore. Weight / BMI Weight Weight: 220 lb 14.451 oz Body Mass Index (BMI) 29.1 ABG / Lab / Microbiology Data 08/23/25 05:35 08/23/25 05:35 Laboratory: Laboratory Results - last 24 hr 08/23/25 05:35: WBC 10.1, RBC 5.12, Hgb 15.7, Hct 45.5, MCV 88.9, MCH 30.7, MCHC 34.5, RDW Std Deviation 46.4 H, RDW Coeff of Leila 14.3, Plt Count 281, MPV 9.3, Immature Gran % (Auto) 0.300, Neut % (Auto) 80.9 H, Lymph % (Auto) 11.2 L, Mcdonald % (Auto) 7.1, Eos % (Auto) 0.3, Baso % (Auto) 0.2, Absolute Neuts (auto) 8.2 H, Absolute Lymphs (auto) 1.13, Nucleated RBC % 0, Sodium 139, Potassium 3.9, Chloride 106, Carbon Dioxide 22.6, Anion Gap 11, BUN 9, Creatinine 0.80, Estim Creat Clear Calc 160.45, Est GFR (MDRD) Non-Af 118, BUN/Creatinine Ratio 11.2, Glucose 94, Calcium 8.0 D/C Instructions Discharge Activity: May Not Drive (3-5 days or while taking narcotic pain medication) and May Shower Lifting Restrictions: 15 pounds for 2 weeks. No strenuous activity for 6-8 weeks Call your doctor if your incision/area has: Continuous Slow Oozing, Sudden Increased Bleeding, Increased Pain/ Swelling, Increased Redness, Foul Smelling Discharge and Swelling at the incision site Call your doctor if you observe: Fever of 101 or Higher Suture Line Care: Avoid Pulling/Pushing and Avoid Pinching/Bending Remove Dressing in: 2 days Cleanse incision/area with: Soap & Water DC O2, CPAP, BIPAP Needs Home O2 Discharge instructions: No Please Follow Up With: Dewey Elmore MD When: Please contact our office at [phone], option #2 to schedule a 7 day follow-up from surgery with Dr. Elmore Meaningful Use Info Meaningful Use Meaningful Use Diagnoses (Choose all that apply): None applicable Discharge Plan Admission Admit Date/Time: 08/22/25 13:41 Primary Reason for Your Visit: Ladi Fundoplication Attending Provider: Dewey Elmore Primary Care Provider: Mary Knowles Instructions Additional Instructions / Restrictions: Laparoscopic Ladi fundoplication or Toupet procedure Diet ? This is outlined on a separate diet instruction sheet (see below) Activity ? You may drive in 3-5 days but not while taking narcotic pain medication. ? I encourage walking. You may go up steps, one at a time. ? Do not swim or use hot tubs for 2 weeks. Lifting ? You may lift up to 15 pounds for 2 weeks. No strenuous exercises/activities for 4-6 weeks. Dressings/Incision ? You may shower OVER your plastic dressings ? Do NOT tub bathe for 1 week ? Leave plastic dressings on for 2 days. ? When plastic dressings are removed, you will find steri strips. It is okay to continue showering with them in place, pat them dry. ? You may remove steri-strips after 1 week. We recommend getting them soaking wet for easier removal. Medications ? Anesthesia used during surgery and pain medications may cause constipation. I recommend initiating on the day of surgery a fiber supplement like, Metamucil, Citrucel, FiberCon, Benefiber, or a generic form of these medications. 1 heaping tablespoon in water daily. You may continue to utilize any bowel regimen or oral laxatives that you routinely take. ? As long as you are not intolerant to Tylenol, acetaminophen, ibuprofen, Motrin, Advil, Aleve, or similar medications, I would recommend transitioning to these [id number] medicines as soon as possible instead of continued use of narcotic pain medication. Follow up ? You should call [facility] soon after surgery, at [phone] option 2 to make a follow up appointment for 7 days after your surgery. Diet After Ladi Fundoplication Surgery This diet information is for patients who have recently had Ladi fundoplication surgery to correct reflux disease or to repair various types of hernias, such as hiatal hernia and intrathoracic stomach. This diet may also be used for other gastrointestinal surgeries, such as Heller myotomy and repair of achalasia. The diet will help control diarrhea, excess gas and swallowing problems, which may occur after this type of surgery. Keeping Your Stomach from Stretching ?? Eat small, frequent meals (six to eight per day). This will help you consume the majority of the nutrients you need without causing your stomach to feel full or distended. ?? Drinking large amounts of fluids with meals can stretch your stomach. You may drink fluids between meals as often as you like, but limit fluids to 1/2 cup (4 fluid ounces) with meals and one cup (8 fluid ounces) with snacks. ?? Sit upright while eating and stay upright for 30 minutes after each meal. [place] can help food move through your digestive tract. Do not lie down after eating. Sit upright for 2 hours after your last meal or snack of the day. ?? Eat very slowly. Take your time when eating. ?? Take small bites and chew your food well to electricians top helper in swallowing and digestion. ?? Avoid crusty breads and sticky, gummy foods, such as bananas, fresh doughy breads, rolls and doughnuts. These types of foods become sticky and difficult to swallow. ?? Toasted breads tend to be better tolerated. ?? Lastly, if you eat sweets, consume them at the end of your meal to avoid a group of symptoms referred to as ?dumping syndrome?. This describes the rapid emptying of foods from the stomach to the small intestine. Sweetened beverages, candy and desserts move more rapidly and dump quickly into the intestines. This can cause symptoms of nausea, weakness, cold sweats, cramps, diarrhea and dizzy spells. Avoiding Gas ?? Avoid drinking through a straw. Do not chew gum or tobacco. These actions cause you to swallow air, which produces excess gas in your stomach. Chew with your mouth closed. ?? Avoid any foods that cause stomach gas and distention. These foods include corn, dried beans, peas, lentils, onions, broccoli, cauliflower and any food from the cabbage family. ?? Avoid carbonated drinks, alcohol, citrus and tomato products. When will I be able to eat a soft diet? After Ladi fundoplication surgery, your diet will be advanced slowly by your surgeon. Generally, you will be on a clear liquid diet for the first few meals. Then you will advance to the full liquid diet for a meal or two and eventually to a Ladi soft diet. Please be aware that each patient's tolerance to food is different. Your doctor will advance your diet depending on how well you progress after surgery. Clear Liquid Diet The first diet after surgery is the clear liquid diet. It includes the following liquids: ?? Apple juice ?? Cranberry juice ?? Grape juice ?? Chicken broth ?? Beef broth ?? Flavored gelatin (Jell-O?) ?? Decaf tea and coffee ?? Caffeinated beverages are permitted based on tolerance ?? Popsicles ?? Occitan ice Carbonated drinks (sodas) are not allowed for the first six to eight weeks after surgery. After this time you can try them again in small amounts. Full Liquid Diet- DISCHARGE DIET The full liquid diet contains anything on the clear liquid diet, plus: ?? Milk, soy, rice and almond (no chocolate) ?? Cream of wheat, cream of rice, grits ?? Strained creamed soups (no tomato or broccoli) ?? Vanilla and strawberry-flavored ice cream ?? Sherbet ?? Blended, custard styled or whipped yogurt (plain or vanilla only) ?? Vanilla and butterscotch pudding (no chocolate or coconut) ?? Nutritional drinks including Ensure?, Boost?, [place] Instant Breakfast? (no chocolate-flavored) Note: Dairy products, such as milk, ice cream and pudding, may cause diarrhea in some people just after surgery. You may need to avoid milk products. If so, substitute them with lactose-free beverages, such as soy, rice, Lactaid? or almond milks. At your 1 week follow-up, Dr. Elmore will discuss with you when to advance your diet. Discharge Orders/Prescriptions Prescriptions: New oxycodone 5 mg tablet 5 mg PO Q6H PRN (Reason: pain) 3 Days Qty: 10 0RF Continued nandrolone decanoate 50 mg/mL oil 25 mg IM MOFR testosterone 50 mg/mL solution 25 mg IM MOFR RETRATRUTIDE subcut TH varenicline tartrate [Chantix Starting Month Box] 0.5 mg (11)- 1 mg (42) tablets,dose pack See Rx Instructions PO PER PKG DIR Qty: 53 0RF Rx Instructions: PO PER PKG DIR sertraline 100 mg tablet 100 mg PO QDAY Qty: 30 0RF No Action omeprazole 40 mg capsule,delayed release(DR/EC) 40 mg PO QDAY Qty: 30 1RF Referrals / Follow Up: Dewey Elmore MD [Med Staff - Active Staff, General Surgery] - 08/29/25 Mary Knowles MD [Primary Care Provider, Internal Medicine] Disposition Disposition (needs filled in before D/C Order can be placed): Home, Self Care Charges/Coding Visit Charges Inpatient E&M: 85874 Disch Hosp (No charge)
[2025-08-23 08:49] VITALS: BP 118/75; PULSE 96; RESP 16; TEMP 36.4; O2SAT 99
[2025-08-23] MEDS: 0.9% Normal Saline (1000mL) 1,000 ML 100 ML IV (09:46)
--- NOTE | 2025-08-23 14:37 | PHA.DC.MR.R ---
Pharmacy [place] Med Reconciliation Pharmacy Service has performed discharge medication reconciliation for this patient. Medication education papers prepared, patient discharged when counseling was attempted. The patient's discharge medication list was reviewed for discrepancies and discrepancies were resolved. Medications at Discharge Home Medications varenicline tartrate 0.5 mg (11)-1 mg (42) tablets in a dose pack (Chantix Starting Month Box) See Rx Instructions PO PER PKG DIR #53 tabs 07/28/25 RETRATRUTIDE subcut TH 08/11/25 nandrolone decanoate 50 mg/mL intramuscular oil 25 mg IM MOFR 08/11/25 omeprazole 40 mg capsule,delayed release 40 mg PO QDAY #30 caps 08/11/25 sertraline 100 mg tablet 100 mg PO QDAY #30 tabs 08/11/25 testosterone 50 mg/mL intramuscular solution 25 mg IM MOFR 08/11/25 oxycodone 5 mg tablet 5 mg PO Q6H PRN pain 3 days #10 tabs 08/23/25
== END 2025-08-23 14:03 | disposition home or self-care (01) ==
LOC: SDC 14:36 → MS3 14:36
PROVIDERS: Admitting Provider Surgery; PCP Internal Medicine; Referring Provider Surgery; Visit Provider Surgery
PROC: (CPT 43325; principal; 2025-08-22 10:10)
DX: K44.9 Diaphragmatic hernia without obstruction or gangrene (principal); K21.9 Gastro-esophageal reflux disease without esophagitis; F17.290 Nicotine dependence, other tobacco product, uncomplicated; Z79.899 Other long term (current) drug therapy
CPT/HCPCS: 43281; 00790; 36415; 80048; 85025; 94668; 96361; 96374; 99221; A4216; G0378; J2405